=== PATIENT | male | born 1980 | race Caucasian/White ===

== ENCOUNTER 2017-02-04 23:43 | Inpatient (IN) | payer MEDICAID ==
[~2017-02-04] VITALS: Ht 175.3 cm; Wt 108.9 kg
[~2017-02-04 23:43] MED LIST: DEPAKOTE500 MG PO; KEPPRA500 M3 ORAL; KLONOPIN1 MG PO; NEURONTIN600 MG PO
[2017-02-04 23:46] VITALS: BP 115/72
[2017-02-04] MEDS ORDERED: levETIRAcetam 500mg vial IV ONE (23:51)
[2017-02-05] VITALS (9 sets, daily range): BP systolic 93–111; BP diastolic 43–68
[2017-02-05] MEDS ORDERED: levETIRAcetam 500 MG in D5W 110 ML IV ONE ×2
[2017-02-05 00:08] LABS: BASOPHILS % (AUTO) 1.5 % (0.0-2.0); EOSINOPHILS % (AUTO) 2.5 % (0.0-3.0); LYMPHOCYTES % (AUTO) 28.4 % (20.0-45.0); MEAN CORPUSCULAR HEMOGLOBIN 28.8 PG (27.0-31.0); MEAN CORPUSCULAR HGB CONC 32.7 G/DL (32.0-36.0); MEAN CORPUSCULAR VOLUME 88 FL (80-99); MEAN PLATELET VOLUME 6.1 FL (6.5-10.1); MONOCYTES % (AUTO) 6.1 % (1.0-10.0); NEUTROPHILS % (AUTO) 61.5 % (45.0-75.0); PLATELET COUNT 283 K/UL (150-450); RED BLOOD COUNT 4.71 M/UL (4.70-6.10); RED CELL DISTRIBUTION WIDTH 12.5 % (11.6-14.8); WHITE BLOOD COUNT 8.7 K/UL (4.8-10.8)
[2017-02-05 00:33] LABS: ALANINE AMINOTRANSFERASE 27 U/L (12-78); ALCOHOL < 3 mg/dL; ANION GAP 6 (5-15); ASPARTATE AMINO TRANSFERASE 14 U/L (15-37); CARBON DIOXIDE 30 MMOL/L (21-32); CHLORIDE 100 MMOL/L (98-107); CREATININE 1.2 MG/DL (0.55-1.30); GLOMERULAR FILTRATION RATE > 60 mL/min (>60); POTASSIUM 3.6 MMOL/L (3.5-5.1); SODIUM 136 MMOL/L (136-145); TOTAL PROTEIN 7.4 G/DL (6.4-8.2)
[2017-02-05 01:00] LABS: CALCIUM 8.6 MG/DL (8.5-10.1)
[2017-02-05 01:03] LABS: VALPROIC ACID 148 MCG/ML (50-100)
[2017-02-05 01:24] LABS: ACETAMINOPHEN < 0.0 MCG/ML (10-30)
--- NOTE | 2017-02-05 03:18 | Emergency Room Report ---
History of Present Illness General Chief Complaint: Seizure Source: EMS Present Illness HPI 36-year-old male presents to ED status post seizure. Seizure was witnessed by mother on the street. Last for several seconds. Patient reportedly hit his head. Patient has history of seizures. Takes Keppra and Depakote. Mother states that patient does have a psychiatric history. Unsure patient tried to overdose of this medication. Upon arrival patient is lethargic, postictal. Unable to have any additional questions. No signs of distress. No tobacco relieving factors. Denies any other associated symptoms Allergies: Coded Allergies: SULFA (SULFONAMIDE ANTIBIOTICS) (Verified Allergy, Unknown, 03/02/12) Uncoded Allergies: SULFA (Allergy, Mild, 03/02/14) Patient History Past Medical History: seizures, psych hx Past Surgical History: none Pertinent Family History: none Social History: Denies: smoking, alcohol use, drug use Immunizations: UTD Reviewed Nursing Documentation: PMH: Agreed, PSxH: Agreed Nursing Documentation-PMH Hx Cardiac Problems: No Hx Cancer: No Hx Gastrointestinal Problems: No History Of Psychiatric Problem: Yes Hx Neurological Problems: Yes Hx Seizures: Yes Hx Epilepsy: Yes Review of Systems All Other Systems: limited Physical Exam Vital Signs Date Time Temp Pulse Resp B/P (MAP) Pulse Ox O2 Delivery O2 Flow Rate FiO2 02/04/17 23:39 98.1 61 14 115/72 100 Room Air 02/04/17 23:46 Sp02 EP Interpretation: reviewed, normal General Appearance: lethargic Head: normocephalic, atraumatic Eyes: bilateral eye normal inspection, bilateral eye PERRL ENT: hearing grossly normal, normal pharynx, no angioedema, normal voice Neck: full range of motion, supple/symm/no masses Respiratory: chest non-tender, lungs clear, normal breath sounds, speaking full sentences Cardiovascular #1: regular rate, rhythm, no edema Cardiovascular #2: 2+ carotid (R), 2+ carotid (L), 2+ radial (R), 2+ radial (L) , 2+ dorsalis pedis (R), 2+ dorsalis pedis (L) Gastrointestinal: normal bowel sounds, non tender, soft, non-distended, no guarding, no rebound Rectal: deferred Genitourinary: normal inspection, no CVA tenderness Musculoskeletal: back normal, gait/station normal, normal range of motion, non- tender Neurologic: other - lethargic Psychiatric: other - lethargic Reflexes: 3+ bicep (R), 3+ bicep (L), 3+ tricep (R), 3+ tricep (L), 3+ knee (R) , 3+ knee (L) Skin: normal color, no rash, warm/dry, well hydrated Lymphatic: no adenopathy Medical Decision Making Diagnostic Impression: Primary Impression: Valproic acid toxicity Qualified Codes: T42.6X4A - Poisoning by other antiepileptic and sedative- hypnotic drugs, undetermined, initial encounter Additional Impressions: Altered level of consciousness Seizure disorder ER Course Hospital Course 36-year-old M presents to ED status post seizure. altered Differential diagnosis includes- breakthrough seizure, alcohol abuse, noncompliance with medication Clinical course Patient placed on stretcher. Initial history and physical I ordered labs, IV fluids, CT brain. IV Keppra Labs-electrolytes okay, leukocytosis noted, hemoglobin/hematocrit stable. depakote level 149 (elevated) EKG - NSR, no acute ischemic changes, no terminal R wave CT Brain ok Discussed findings with poison control. Recommend repeating Depakote level after a few hours, check ammonia level and lactic acid level Repeat Depakote level 140, ammonia 49, lactic acid ok Patient remains lethargic. Mother at bedside stating that patient does have a psychiatric history and may have taken more Depakote that he is supposed to. She is unsure whether he was trying to hurt himself i. I feel this is a highly complex case requiring extensive working including EKG/Rhythm strip, Xray/CT/US, Blood/urine lab work, repeat exams while in ED, and administration of strong opiates/narcotics for pain control, admission to hospital or close patient follow up. Diagnosis - valproic acid toxicity, altered level of consciousness, seizure disorder admitted to telemetry in serious condition Labs Test 02/04/17 23:45 02/05/17 03:05 White Blood Count 8.7 K/UL (4.8-10.8) Red Blood Count 4.71 M/UL (4.70-6.10) Hemoglobin 13.6 G/DL (14.2-18.0) Hematocrit 41.5 % (42.0-52.0) Mean Corpuscular Volume 88 FL (80-99) Mean Corpuscular Hemoglobin 28.8 PG (27.0-31.0) Mean Corpuscular Hemoglobin Concent 32.7 G/DL (32.0-36.0) Red Cell Distribution Width 12.5 % (11.6-14.8) Platelet Count 283 K/UL (150-450) Mean Platelet Volume 6.1 FL (6.5-10.1) Neutrophils (%) (Auto) 61.5 % (45.0-75.0) Lymphocytes (%) (Auto) 28.4 % (20.0-45.0) Monocytes (%) (Auto) 6.1 % (1.0-10.0) Eosinophils (%) (Auto) 2.5 % (0.0-3.0) Basophils (%) (Auto) 1.5 % (0.0-2.0) Sodium Level 136 MMOL/L (136-145) Potassium Level 3.6 MMOL/L (3.5-5.1) Chloride Level 100 MMOL/L (98-107) Carbon Dioxide Level 30 MMOL/L (21-32) Anion Gap 6 (5-15) Blood Urea Nitrogen 9 mg/dL (7-18) Creatinine 1.2 MG/DL (0.55-1.30) Estimat Glomerular Filtration Rate > 60 mL/min (>60) Glucose Level 87 MG/DL (74-106) Calcium Level 8.6 MG/DL (8.5-10.1) Total Bilirubin 0.5 MG/DL (0.2-1.0) Aspartate Amino Transf (AST/SGOT) 14 U/L (15-37) Alanine Aminotransferase (ALT/SGPT) 27 U/L (12-78) Alkaline Phosphatase 54 U/L (46-116) Ammonia 49 umol/L (11.2-31.7) Total Protein 7.4 G/DL (6.4-8.2) Albumin 3.7 G/DL (3.4-5.0) Globulin 3.7 g/dL Albumin/Globulin Ratio 1.0 (1.0-2.7) Salicylates Level 0 ug/mL (2.8-20) Acetaminophen Level < 0.0 MCG/ML (10-30) Valproic Acid (Depakene) Level 148 MCG/ML (50-100) 140 MCG/ML (50-100) Serum Alcohol < 3 mg/dL Lactic Acid Level 1.60 mmol/L (0.66-2.22) EKG Diagnostic Results Rate: normal Rhythm: NSR ST Segments: no acute changes ASA given to the pt in ED: No Rhythm Strip Diag. Results EP Interpretation: yes Rhythm: NSR, no PVC's, no ectopy CT/MRI/US Diagnostic Results CT/MRI/US Diagnostic Results : Imaging Test Ordered: CT Head Impression no acute process Last Vital Signs Date Time Temp Pulse Resp B/P (MAP) Pulse Ox O2 Delivery O2 Flow Rate FiO2 02/05/17 00:46 98.1 64 15 105/64 100 Room Air 02/04/17 23:46 100 Status: unchanged Disposition: XFER [facility] Condition: Serious Referrals: CHIQUI DOLL (PCP) FLYNN PEREZ M.D. Feb 05, 2017 03:18
[2017-02-05] MEDS ORDERED: KLONOPIN2 MG PO (05:49)
[2017-02-05] MEDS ORDERED: DEPAKOTE125 MG PO (05:49)
[2017-02-05] MEDS ORDERED: NEURONTIN300 MG ORAL (05:49)
[2017-02-05] MEDS ORDERED: Mylanta II UD 30ml ORAL PRN (07:00)
[2017-02-05] MEDS ORDERED: LORazepam Inj 2mg/ml 1ml IV PRN (07:00)
[2017-02-05] MEDS ORDERED: Morphine Sulfate 2mg/ml Inj IVP PRN (07:00)
[2017-02-05] MEDS: Heparin 5000 units/ml inj SUBQ SCH ×2 (08:27→20:37)
--- NOTE | 2017-02-05 08:52 | Diagnostic Imaging Report ---
Indication: Altered mental status Technique: Continuous helical CT scanning of the head was performed without intravenous contrast material. Axial and coronal 5 mm sections were generated. Radiation dose was minimized using automated exposure control Dose: Total Dose Length Product - DLP [address] Dose Index - CTDIvol(s) 70.38 mGy. Comparison: None Findings: The ventricular system is normal in size and configuration. There is no shift of midline structures. No abnormal extra-axial fluid collections are noted. There is no evidence of intracerebral bleeding. No other abnormal high or low density areas are noted within the brain. Intact calvarium. Visualized orbits and sinuses are unremarkable Impression: Normal CT scan of the head without contrast material. This agrees with the preliminary interpretation provided overnight by [facility] teleradiology service. The CT scanner at [facility] is accredited by the [employer] and the scans are performed using protocols designed to limit radiation exposure to as low as reasonably achievable to attain images of sufficient resolution adequate for diagnostic evaluation.
--- NOTE | 2017-02-05 12:22 | Neurology Progress Note ---
Objective Physical Exam Last Vital Signs Date Time Temp Pulse Resp B/P (MAP) Pulse Ox O2 Delivery O2 Flow Rate FiO2 02/05/17 11:36 97.5 71 18 98/51 94 Room Air 02/05/17 06:21 100 Laboratory Tests Test 02/04/17 23:45 02/05/17 03:05 02/05/17 05:35 02/05/17 10:45 White Blood Count 8.7 K/UL (4.8-10.8) Red Blood Count 4.71 M/UL (4.70-6.10) Hemoglobin 13.6 G/DL (14.2-18.0) L Hematocrit 41.5 % (42.0-52.0) L Mean Corpuscular Volume 88 FL (80-99) Mean Corpuscular Hemoglobin 28.8 PG (27.0-31.0) Mean Corpuscular Hemoglobin Concent 32.7 G/DL (32.0-36.0) Red Cell Distribution Width 12.5 % (11.6-14.8) Platelet Count 283 K/UL (150-450) Mean Platelet Volume 6.1 FL (6.5-10.1) L Neutrophils (%) (Auto) 61.5 % (45.0-75.0) Lymphocytes (%) (Auto) 28.4 % (20.0-45.0) Monocytes (%) (Auto) 6.1 % (1.0-10.0) Eosinophils (%) (Auto) 2.5 % (0.0-3.0) Basophils (%) (Auto) 1.5 % (0.0-2.0) Sodium Level 136 MMOL/L (136-145) Potassium Level 3.6 MMOL/L (3.5-5.1) Chloride Level 100 MMOL/L (98-107) Carbon Dioxide Level 30 MMOL/L (21-32) Anion Gap 6 (5-15) Blood Urea Nitrogen 9 mg/dL (7-18) Creatinine 1.2 MG/DL (0.55-1.30) Estimat Glomerular Filtration Rate > 60 mL/min (>60) Glucose Level 87 MG/DL (74-106) Calcium Level 8.6 MG/DL (8.5-10.1) Total Bilirubin 0.5 MG/DL (0.2-1.0) Aspartate Amino Transf (AST/SGOT) 14 U/L (15-37) L Alanine Aminotransferase (ALT/SGPT) 27 U/L (12-78) Alkaline Phosphatase 54 U/L (46-116) Ammonia 49 umol/L (11.2-31.7) H Pending Total Protein 7.4 G/DL (6.4-8.2) Albumin 3.7 G/DL (3.4-5.0) Globulin 3.7 g/dL Albumin/Globulin Ratio 1.0 (1.0-2.7) Salicylates Level 0 ug/mL (2.8-20) L Pending Acetaminophen Level < 0.0 MCG/ML (10-30) L Pending Valproic Acid (Depakene) Level 148 MCG/ML (50-100) *H 140 MCG/ML (50-100) *H Pending Serum Alcohol < 3 mg/dL Pending Lactic Acid Level 1.60 mmol/L (0.66-2.22) Urine Opiates Screen Negative (NEGATIVE) Urine Barbiturates Screen Negative (NEGATIVE) Phencyclidine (PCP) Screen Negative (NEGATIVE) Urine Amphetamines Screen Negative (NEGATIVE) Urine Benzodiazepines Screen Negative (NEGATIVE) Urine Cocaine Screen Negative (NEGATIVE) Urine Marijuana (THC) Screen Negative (NEGATIVE) Impression/Recommendations Problems: (1) persistant unresponsiveness 2/2 toxic encephalopathy. (2) chronic seizure disorder, noncompiant (3) blunt head trauma (4) Valproic acid toxicity Status: unchanged Recommendations # [id number] CARINE JERONIMO Feb 05, 2017 12:22
--- NOTE | 2017-02-05 12:41 | Consultation ---
History of Present Illness General Chief Complaint: Seizure Present Illness HPI not 5150 at this time Allergies: Coded Allergies: SULFA (SULFONAMIDE ANTIBIOTICS) (Verified Allergy, Unknown, 03/02/12) Uncoded Allergies: SULFA (Allergy, Mild, 03/02/14) Medication History Scheduled Divalproex Sodium (Depakote), 500 MG PO BID, (Reported) Gabapentin (Neurontin), 300 MG ORAL BEDTIME, (Reported) Levetiracetam (Levetiracetam), 500 MG ORAL Q12HR Miscellaneous Medications Clonazepam (Klonopin), 2 MG PO, (Reported) Divalproex Sodium (Depakote), 125 MG PO, (Reported) Patient History Healthcare decision maker Resuscitation status Advanced Directive on File Physical Exam Last 24 Hour Vital Signs Date Time Temp Pulse Resp B/P (MAP) Pulse Ox O2 Delivery O2 Flow Rate FiO2 02/05/17 11:36 97.5 71 18 98/51 94 Room Air 02/05/17 08:27 96.8 69 20 103/43 97 Room Air 02/05/17 06:21 98.3 70 17 111/68 100 Room Air 100 02/05/17 06:03 98.3 70 17 111/68 100 Room Air 02/05/17 05:00 98.3 61 12 93/62 100 Room Air 02/05/17 03:00 98.3 66 13 100/62 100 Room Air 02/05/17 02:00 98.3 65 14 106/64 100 Room Air 02/05/17 00:46 98.1 64 15 105/64 100 Room Air 02/04/17 23:46 61 14 Room Air 100 02/04/17 23:46 61 14 Room Air 100 02/04/17 23:46 98.1 61 14 115/72 100 Room Air 02/04/17 23:39 98.1 61 14 115/72 100 Room Air Laboratory Tests Test 02/04/17 23:45 02/05/17 03:05 02/05/17 05:35 02/05/17 10:45 White Blood Count 8.7 K/UL (4.8-10.8) Red Blood Count 4.71 M/UL (4.70-6.10) Hemoglobin 13.6 G/DL (14.2-18.0) L Hematocrit 41.5 % (42.0-52.0) L Mean Corpuscular Volume 88 FL (80-99) Mean Corpuscular Hemoglobin 28.8 PG (27.0-31.0) Mean Corpuscular Hemoglobin Concent 32.7 G/DL (32.0-36.0) Red Cell Distribution Width 12.5 % (11.6-14.8) Platelet Count 283 K/UL (150-450) Mean Platelet Volume 6.1 FL (6.5-10.1) L Neutrophils (%) (Auto) 61.5 % (45.0-75.0) Lymphocytes (%) (Auto) 28.4 % (20.0-45.0) Monocytes (%) (Auto) 6.1 % (1.0-10.0) Eosinophils (%) (Auto) 2.5 % (0.0-3.0) Basophils (%) (Auto) 1.5 % (0.0-2.0) Sodium Level 136 MMOL/L (136-145) Potassium Level 3.6 MMOL/L (3.5-5.1) Chloride Level 100 MMOL/L (98-107) Carbon Dioxide Level 30 MMOL/L (21-32) Anion Gap 6 (5-15) Blood Urea Nitrogen 9 mg/dL (7-18) Creatinine 1.2 MG/DL (0.55-1.30) Estimat Glomerular Filtration Rate > 60 mL/min (>60) Glucose Level 87 MG/DL (74-106) Calcium Level 8.6 MG/DL (8.5-10.1) Total Bilirubin 0.5 MG/DL (0.2-1.0) Aspartate Amino Transf (AST/SGOT) 14 U/L (15-37) L Alanine Aminotransferase (ALT/SGPT) 27 U/L (12-78) Alkaline Phosphatase 54 U/L (46-116) Ammonia 49 umol/L (11.2-31.7) H Pending Total Protein 7.4 G/DL (6.4-8.2) Albumin 3.7 G/DL (3.4-5.0) Globulin 3.7 g/dL Albumin/Globulin Ratio 1.0 (1.0-2.7) Salicylates Level 0 ug/mL (2.8-20) L Pending Acetaminophen Level < 0.0 MCG/ML (10-30) L Pending Valproic Acid (Depakene) Level 148 MCG/ML (50-100) *H 140 MCG/ML (50-100) *H Pending Serum Alcohol < 3 mg/dL Pending Lactic Acid Level 1.60 mmol/L (0.66-2.22) Urine Opiates Screen Negative (NEGATIVE) Urine Barbiturates Screen Negative (NEGATIVE) Phencyclidine (PCP) Screen Negative (NEGATIVE) Urine Amphetamines Screen Negative (NEGATIVE) Urine Benzodiazepines Screen Negative (NEGATIVE) Urine Cocaine Screen Negative (NEGATIVE) Urine Marijuana (THC) Screen Negative (NEGATIVE) Height (Feet): 5 Height (Inches): 9.00 Weight (Pounds): 240 Medications Current Medications Medications (Trade) Dose Ordered Sig/Janet Route PRN Reason Start Time Stop Time Status Last Admin Dose Admin Acetaminophen (Tylenol) 650 mg Q4H PRN ORAL T>100.5 02/05/17 07:00 03/07/17 06:59 Al Hydroxide/Mg Hydroxide (Mylanta II) 30 ml Q6H PRN ORAL dyspepsia 02/05/17 07:00 03/07/17 06:59 Dextrose (Dextrose 50%) STAT PRN IV Hypoglycemia 02/05/17 07:00 03/07/17 06:59 Heparin Sodium (Porcine) (Heparin 5000 units/ml) 5,000 units EVERY 12 HOURS SUBQ 02/05/17 09:00 03/07/17 08:59 02/05/17 08:27 Levetiracetam 100 ml @ 400 mls/hr Q12HR IVPB 02/05/17 13:00 03/07/17 12:59 Lorazepam (Ativan 2mg/ml 1ml) 2 mg Q1H PRN IV seizures 02/05/17 07:00 02/12/17 06:59 Morphine Sulfate (Morphine Sulfate) 1 mg Q4H PRN IVP PAIN 4-10 02/05/17 07:00 02/12/17 06:59 Ondansetron HCl (Zofran) 4 mg Q6H PRN IVP Nausea & Vomiting 02/05/17 07:00 03/07/17 06:59 Polyethylene Glycol (Miralax) 17 gm HSPRN PRN ORAL Constipation 02/05/17 21:00 11/10/17 20:59 Zolpidem Tartrate (Ambien) 5 mg HSPRN PRN ORAL Insomnia 02/05/17 21:00 02/12/17 20:59 Courtney Ashraf M.D. Feb 05, 2017 12:41
--- NOTE | 2017-02-05 12:53 | History and Physical ---
History of Present Illness General Date patient seen: Feb 05, 2017 Reason for Hospitalization: Seizure Present Illness HPI 36-year-old male presents to ED status post seizure. Seizure was witnessed by mother on the street. Last for several seconds. Patient reportedly hit his head. Patient has history of seizures. Takes Keppra and Depakote. Upon arrival patient is lethargic, postictal. Unable to have any additional questions. Patient remains unconscious. responds only to painful stimuli. Allergies: Coded Allergies: SULFA (SULFONAMIDE ANTIBIOTICS) (Verified Allergy, Unknown, 03/02/12) Uncoded Allergies: SULFA (Allergy, Mild, 03/02/14) Medication History Scheduled Divalproex Sodium (Depakote), 500 MG PO BID, (Reported) Gabapentin (Neurontin), 300 MG ORAL BEDTIME, (Reported) Levetiracetam (Levetiracetam), 500 MG ORAL Q12HR Miscellaneous Medications Clonazepam (Klonopin), 2 MG PO, (Reported) Divalproex Sodium (Depakote), 125 MG PO, (Reported) Patient History Healthcare decision maker Resuscitation status Advanced Directive on File Past Medical/Surgical History Past Medical/Surgical History: (1) Acute encephalopathy (2) chronic seizure disorder, noncompiant (3) Valproic acid toxicity Review of Systems All Other Systems: negative except mentioned in HPI Physical Exam General Appearance: WD/WN Lines, tubes and drains: peripheral HEENT: normocephalic, atraumatic Neck: non-tender, normal alignment Respiratory/Chest: chest wall non-tender, lungs clear Cardiovascular/Chest: normal rate Abdomen: normal bowel sounds, non tender Genitourinary/Rectal: normal genital exam Extremities: normal range of motion Skin Exam: normal pigmentation Last 24 Hour Vital Signs Date Time Temp Pulse Resp B/P (MAP) Pulse Ox O2 Delivery O2 Flow Rate FiO2 02/05/17 11:36 97.5 71 18 98/51 94 Room Air 02/05/17 08:27 96.8 69 20 103/43 97 Room Air 02/05/17 06:21 98.3 70 17 111/68 100 Room Air 100 02/05/17 06:03 98.3 70 17 111/68 100 Room Air 02/05/17 05:00 98.3 61 12 93/62 100 Room Air 02/05/17 03:00 98.3 66 13 100/62 100 Room Air 02/05/17 02:00 98.3 65 14 106/64 100 Room Air 02/05/17 00:46 98.1 64 15 105/64 100 Room Air 02/04/17 23:46 61 14 Room Air 100 02/04/17 23:46 61 14 Room Air 100 02/04/17 23:46 98.1 61 14 115/72 100 Room Air 02/04/17 23:39 98.1 61 14 115/72 100 Room Air Laboratory Tests Test 02/04/17 23:45 02/05/17 03:05 02/05/17 05:35 02/05/17 10:45 White Blood Count 8.7 K/UL (4.8-10.8) Red Blood Count 4.71 M/UL (4.70-6.10) Hemoglobin 13.6 G/DL (14.2-18.0) L Hematocrit 41.5 % (42.0-52.0) L Mean Corpuscular Volume 88 FL (80-99) Mean Corpuscular Hemoglobin 28.8 PG (27.0-31.0) Mean Corpuscular Hemoglobin Concent 32.7 G/DL (32.0-36.0) Red Cell Distribution Width 12.5 % (11.6-14.8) Platelet Count 283 K/UL (150-450) Mean Platelet Volume 6.1 FL (6.5-10.1) L Neutrophils (%) (Auto) 61.5 % (45.0-75.0) Lymphocytes (%) (Auto) 28.4 % (20.0-45.0) Monocytes (%) (Auto) 6.1 % (1.0-10.0) Eosinophils (%) (Auto) 2.5 % (0.0-3.0) Basophils (%) (Auto) 1.5 % (0.0-2.0) Sodium Level 136 MMOL/L (136-145) Potassium Level 3.6 MMOL/L (3.5-5.1) Chloride Level 100 MMOL/L (98-107) Carbon Dioxide Level 30 MMOL/L (21-32) Anion Gap 6 (5-15) Blood Urea Nitrogen 9 mg/dL (7-18) Creatinine 1.2 MG/DL (0.55-1.30) Estimat Glomerular Filtration Rate > 60 mL/min (>60) Glucose Level 87 MG/DL (74-106) Calcium Level 8.6 MG/DL (8.5-10.1) Total Bilirubin 0.5 MG/DL (0.2-1.0) Aspartate Amino Transf (AST/SGOT) 14 U/L (15-37) L Alanine Aminotransferase (ALT/SGPT) 27 U/L (12-78) Alkaline Phosphatase 54 U/L (46-116) Ammonia 49 umol/L (11.2-31.7) H Pending Total Protein 7.4 G/DL (6.4-8.2) Albumin 3.7 G/DL (3.4-5.0) Globulin 3.7 g/dL Albumin/Globulin Ratio 1.0 (1.0-2.7) Salicylates Level 0 ug/mL (2.8-20) L Pending Acetaminophen Level < 0.0 MCG/ML (10-30) L Pending Valproic Acid (Depakene) Level 148 MCG/ML (50-100) *H 140 MCG/ML (50-100) *H Pending Serum Alcohol < 3 mg/dL Pending Lactic Acid Level 1.60 mmol/L (0.66-2.22) Urine Opiates Screen Negative (NEGATIVE) Urine Barbiturates Screen Negative (NEGATIVE) Phencyclidine (PCP) Screen Negative (NEGATIVE) Urine Amphetamines Screen Negative (NEGATIVE) Urine Benzodiazepines Screen Negative (NEGATIVE) Urine Cocaine Screen Negative (NEGATIVE) Urine Marijuana (THC) Screen Negative (NEGATIVE) Height (Feet): 5 Height (Inches): 9.00 Weight (Pounds): 240 Medications Current Medications Medications (Trade) Dose Ordered Sig/Janet Route PRN Reason Start Time Stop Time Status Last Admin Dose Admin Acetaminophen (Tylenol) 650 mg Q4H PRN ORAL T>100.5 02/05/17 07:00 03/07/17 06:59 Al Hydroxide/Mg Hydroxide (Mylanta II) 30 ml Q6H PRN ORAL dyspepsia 02/05/17 07:00 03/07/17 06:59 Dextrose (Dextrose 50%) STAT PRN IV Hypoglycemia 02/05/17 07:00 03/07/17 06:59 Heparin Sodium (Porcine) (Heparin 5000 units/ml) 5,000 units EVERY 12 HOURS SUBQ 02/05/17 09:00 03/07/17 08:59 02/05/17 08:27 Levetiracetam 100 ml @ 400 mls/hr Q12HR IVPB 02/05/17 13:00 03/07/17 12:59 Lorazepam (Ativan 2mg/ml 1ml) 2 mg Q1H PRN IV seizures 02/05/17 07:00 02/12/17 06:59 Morphine Sulfate (Morphine Sulfate) 1 mg Q4H PRN IVP PAIN 4-10 02/05/17 07:00 02/12/17 06:59 Ondansetron HCl (Zofran) 4 mg Q6H PRN IVP Nausea & Vomiting 02/05/17 07:00 03/07/17 06:59 Polyethylene Glycol (Miralax) 17 gm HSPRN PRN ORAL Constipation 02/05/17 21:00 03/07/17 20:59 Zolpidem Tartrate (Ambien) 5 mg HSPRN PRN ORAL Insomnia 02/05/17 21:00 02/12/17 20:59 Assessment/Plan Problem List: (1) Acute encephalopathy ICD Codes: G93.40 - Encephalopathy, unspecified SNOMED: 1349523 (2) chronic seizure disorder, noncompiant (3) Valproic acid toxicity ICD Codes: T42.6X1A - Poisoning by oth antieplptc and sed-hypntc drugs, acc, init SNOMED: 178283617 Assessment/Plan telemetry monitoring neuro evaluation psych evaluation ALISHA SOW Feb 05, 2017 12:52
[2017-02-05 13:25] LABS: AMMONIA 101 umol/L (11.2-31.7)
[2017-02-05 13:30] LABS: ACETAMINOPHEN 0.4 MCG/ML (10-30)
[2017-02-05 13:36] LABS: VALPROIC ACID > 150 MCG/ML (50-100)
[2017-02-05 13:38] LABS: ALCOHOL < 3 mg/dL
[2017-02-05] MEDS: levETIRAcetam 500mg/NS100ml 100 ML IVPB SCH ×2 (15:00→20:36)
[2017-02-05 16:15] LABS: AMMONIA 31 umol/L (11.2-31.7)
[2017-02-05 16:25] LABS: ALCOHOL < 3 mg/dL
[2017-02-05 16:26] LABS: ACETAMINOPHEN < 10.0 MCG/ML (10-30)
[2017-02-05 16:30] LABS: VALPROIC ACID 163 MCG/ML (50-100)
--- NOTE | 2017-02-05 19:31 | Consultation ---
DATE OF CONSULTATION: HISTORY OF PRESENT ILLNESS: The patient is a 36-year-old male with a history of bipolar disorder, who has been admitted to the hospital after he alledgedly took five pills of Depakote. Upon evaluation, the patient denies any suicide attempt, however, the patient mother is unsure whether the patient had to overdose or he was trying to present having a seizure. During the evaluation, the patient denied any suicidal or homicidal ideation. The patient is well known to me from past. I have not been his doctor, however, has been familiar with him in a different context, they both have a history of noncompliance and eating fast food and not following doctor's recommendation. Recently, they both are homeless and they have been living in a motel. The patient is denying any depressive symptoms. He appears to be depressed, has flat affect and minimally verbal. PAST PSYCHIATRIC HISTORY: He denies any psychiatric hospitalization. No suicide attempt in the past. PAST MEDICAL HISTORY: Seizure disorder and obesity. ALLERGIES: Sulfa. SUBSTANCE ABUSE HISTORY: No history of illicit drug use or alcohol. SOCIAL HISTORY: The patient is homeless, is in a codependent relationship with his mother. MENTAL STATUS EXAMINATION: Alert and oriented x3. Mood is depressed. Affect is constricted. Thought process is concrete. Thought content, no suicidal or homicidal ideations. ASSESSMENT: AXIS I Bipolar disorder by history. AXIS II Deferred. AXIS III Seizure disorder. AXIS IV Low. AXIS V Global assessment of functioning is 20. PLAN: The patient will be started Depakote ER 500 mg at bedtime. It is unclear whether the patient was taking it seizure or bipolar or both. We will continue to follow and readjust the medications. Courtney Ashraf M.D. DR: ROSE MARY JOB#: [id number] CC:
[2017-02-05 19:52] LABS: ALCOHOL < 3 mg/dL
[2017-02-05 20:01] LABS: VALPROIC ACID 145 MCG/ML (50-100)
[2017-02-05 20:36] LABS: ACETAMINOPHEN < 10.0 MCG/ML (10-30)
[2017-02-05] MEDS ORDERED: Miralax 17gm pkt ORAL PRN (21:00)
[2017-02-05] MEDS ORDERED: Zolpidem 5mg tab ORAL PRN (21:00)
[2017-02-05 21:33] LABS: AMMONIA 95 umol/L (11.2-31.7)
[2017-02-05 23:57] LABS: AMMONIA 46 umol/L (11.2-31.7)
--- NOTE | 2017-02-06 00:02 | Consultation ---
DATE OF CONSULTATION: 02/05/2017 NEUROLOGICAL CONSULTATION CONSULTING PHYSICIAN: Checo Taylor M.D. REQUESTING PHYSICIAN: Chelita Thomas M.D. HISTORY OF PRESENT ILLNESS: This is a 36-year-old man seen in neurological consultation to evaluate the exacerbation of seizure activities. The patient has a chronic seizure disorder since early 20s, developed as noted previously after having a head trauma, now presented with the exacerbation of seizures last night and being somewhat groggy. He was outside the gas station when he developed a generalized seizure. Paramedics were called to the scene. His vital signs were stable. He was found to be on the ground, status post at least 30 seconds of "tonic-clonic movement." His mother stated that the patient was in aura, went to the ground anticipating the seizure. There was no obvious signs of trauma noted. The patient remained postictal. There was no evidence of tongue biting. No urine incontinence. With this, the patient was brought to the emergency room. Mother described his fall as falling backwards hitting his head against the pole. The patient remained unresponsive and information was obtained from his mother. Laboratory work obtained revealing normal CBC study, unremarkable electrolyte panel, except ammonia 49. Normal lactic acid. Toxicology panel with valproic acid level of 148, repeat study 140. Alcohol level less than 3. He had a stat CT of the brain obtained. This revealed no intracranial abnormalities. Since admission last night until present, the patient remained unresponsive. PAST MEDICAL HISTORY: The patient has a history of mild cognitive impairment since young age and history of chronic seizure disorder, presumably posttraumatic since early 20s. The type of seizures described as being grand mal or "smaller seizures." Frequency, four or five per year. MEDICATIONS: His treatment for several years included Depakote 500 mg b.i.d. Last year, he was started on Keppra, which in the patient's mother opinion cause him psychiatric issues such as being explosive, anxious, and nervous with the mood swings. The patient's current treatment includes Keppra 500 mg b.i.d., Depakote 500 mg b.i.d., Klonopin 2 mg daily, and Neurontin 300 mg at bedtime. ALLERGIES: Sulfa drugs. SOCIAL HISTORY: Unfavorable. He completed high school, but unable to go through the college due to issue with memory. He had one and off manual jobs. He remained now on SSI. The patient and his mother have no permanent place to live, so they reside in temporary hotels. No alcohol or drug abuse noted. FAMILY HISTORY: Noncontributory. REVIEW OF SYSTEMS: Unable to obtain. PHYSICAL EXAMINATION: GENERAL: A well-developed moderately obese man, found to be asleep. VITAL SIGNS: Stable although at times, hypotensive down to 98/51. Temperature 97.5 degrees. Pulse oximetry 94%. HEENT: Head, normocephalic. There are some slight bruises in his left forehead region. NECK: Supple. No meningeal signs. MUSCULOSKELETAL EXAMINATION: Unremarkable except postoperative scarring in the right knee following knee replacement and old trauma to olson with noted scratches in this area. Peripheral pulses 1+ and symmetric. MENTAL STATUS: The patient was not arousable on verbal stimulation and shaking. CRANIAL NERVE II: Pupils both responding to light and accommodation. Extraocular movement full range. CRANIAL NERVE V: Normal corneal responses. CRANIAL NERVE VII: No gross asymmetry. CRANIAL NERVE VIII: Unable to test. CRANIAL NERVES IX THROUGH XII: Positive gag response. MOTOR EXAMINATION: Flaccid both upper and lower extremities. No spontaneous movement noted. Deep tendon reflexes 1+ bilaterally and symmetric. Plantar response is mute. SENSORY EXAMINATION: No response to pin stimulation. IMPRESSION: 1. Toxic encephalopathy, drug-induced. 2. Depakote toxicity. 3. Chronic seizure disorder. DISCUSSION: The patient had a generalized seizure last night with a mild head trauma and normal CAT scan of the brain. His current unresponsiveness may relate to Depakote toxicity. The patient's mother stated that "he wants to be smarter than a doctor, so he takes medicine as he wish." We will continue with IV fluids. We will hold all sedating medications, but maintain on Keppra 500 mg b.i.d. Check electroencephalogram. We will follow with you. Thank you for allowing me to see this interesting patient in neurological consultation. Checo Taylor M.D. DR: RONNELL JOB#: [id number] CC:
[2017-02-06 00:07] LABS: VALPROIC ACID 133 MCG/ML (50-100)
[2017-02-06 00:11] LABS: ACETAMINOPHEN < 0.0 MCG/ML (10-30); ALCOHOL < 3 mg/dL
[2017-02-06 00:26] VITALS: BP 110/51
[2017-02-06 03:38] LABS: BASOPHILS % (AUTO) 1.1 % (0.0-2.0); EOSINOPHILS % (AUTO) 1.2 % (0.0-3.0); LYMPHOCYTES % (AUTO) 34.4 % (20.0-45.0); MEAN CORPUSCULAR HEMOGLOBIN 28.7 PG (27.0-31.0); MEAN CORPUSCULAR HGB CONC 32.9 G/DL (32.0-36.0); MEAN CORPUSCULAR VOLUME 87 FL (80-99); MEAN PLATELET VOLUME 6.9 FL (6.5-10.1); MONOCYTES % (AUTO) 3.1 % (1.0-10.0); NEUTROPHILS % (AUTO) 60.2 % (45.0-75.0); PLATELET COUNT 305 K/UL (150-450); RED BLOOD COUNT 4.68 M/UL (4.70-6.10); RED CELL DISTRIBUTION WIDTH 12.4 % (11.6-14.8); WHITE BLOOD COUNT 8.5 K/UL (4.8-10.8)
[2017-02-06 03:45] LABS: AMMONIA 32 umol/L (11.2-31.7)
[2017-02-06 03:47] LABS: ALANINE AMINOTRANSFERASE 20 U/L (12-78); ALBUMIN/GLOBULIN RATIO 0.9 (1.0-2.7); ANION GAP 5 (5-15); ASPARTATE AMINO TRANSFERASE 14 U/L (15-37); CALCIUM 8.9 MG/DL (8.5-10.1); CARBON DIOXIDE 29 MMOL/L (21-32); CHLORIDE 103 MMOL/L (98-107); CREATININE 1.1 MG/DL (0.55-1.30); GLOMERULAR FILTRATION RATE > 60 mL/min (>60); POTASSIUM 3.6 MMOL/L (3.5-5.1); SODIUM 137 MMOL/L (136-145); TOTAL PROTEIN 6.7 G/DL (6.4-8.2)
[2017-02-06 03:48] LABS: ALCOHOL < 3 mg/dL
[2017-02-06 04:11] LABS: ACETAMINOPHEN < 0.0 MCG/ML (10-30); VALPROIC ACID 134 MCG/ML (50-100)
[2017-02-06 04:15] VITALS: BP 124/73
[2017-02-06 08:00] VITALS: BP 101/50
[2017-02-06 08:45] LABS: AMMONIA 83 umol/L (11.2-31.7)
[2017-02-06 09:26] LABS: ACETAMINOPHEN < 10.0 MCG/ML (10-30); ALCOHOL < 3 mg/dL
[2017-02-06 09:28] LABS: VALPROIC ACID 126 MCG/ML (50-100)
[2017-02-06] MEDS: levETIRAcetam 500mg/NS100ml 100 ML IVPB SCH (09:43)
[2017-02-06] MEDS: Heparin 5000 units/ml inj SUBQ SCH ×2 (09:46→20:34)
[2017-02-06 11:10] LABS: AMMONIA 30 umol/L (11.2-31.7)
[2017-02-06 11:16] LABS: VALPROIC ACID 103 MCG/ML (50-100)
[2017-02-06 11:18] LABS: ACETAMINOPHEN < 10 MCG/ML (10-30); ALCOHOL < 3 mg/dL
[2017-02-06 12:00] VITALS: BP 100/55
--- NOTE | 2017-02-06 12:03 | Neurology Progress Note ---
Interim History Interim History ROS Limited/Unobtainable: Yes Complaints: sleepy Events: became awake walkin to bath Interim History mother informs , pt is depressed takes high doseses since on Keppra , became very aggressive.l Objective Physical Exam Last Vital Signs Date Time Temp Pulse Resp B/P (MAP) Pulse Ox O2 Delivery O2 Flow Rate FiO2 02/06/17 08:00 97.9 64 20 101/50 93 Room Air 02/05/17 06:21 100 Laboratory Tests Test 02/05/17 15:34 02/05/17 19:07 02/05/17 23:00 02/06/17 03:05 Ammonia 31 umol/L (11.2-31.7) 95 umol/L (11.2-31.7) H 46 umol/L (11.2-31.7) H 32 umol/L (11.2-31.7) H Salicylates Level < 3 ug/mL (2.8-20) 0 ug/mL (2.8-20) L 1 ug/mL (2.8-20) L < 0 ug/mL (2.8-20) L Acetaminophen Level < 10.0 MCG/ML (10-30) L < 10.0 MCG/ML (10-30) L < 0.0 MCG/ML (10-30) L < 0.0 MCG/ML (10-30) L Valproic Acid (Depakene) Level 163 MCG/ML (50-100) *H 145 MCG/ML (50-100) *H 133 MCG/ML (50-100) *H 134 MCG/ML (50-100) *H Serum Alcohol < 3 mg/dL < 3 mg/dL < 3 mg/dL < 3 mg/dL White Blood Count 8.5 K/UL (4.8-10.8) Red Blood Count 4.68 M/UL (4.70-6.10) L Hemoglobin 13.4 G/DL (14.2-18.0) L Hematocrit 40.8 % (42.0-52.0) L Mean Corpuscular Volume 87 FL (80-99) Mean Corpuscular Hemoglobin 28.7 PG (27.0-31.0) Mean Corpuscular Hemoglobin Concent 32.9 G/DL (32.0-36.0) Red Cell Distribution Width 12.4 % (11.6-14.8) Platelet Count 305 K/UL (150-450) Mean Platelet Volume 6.9 FL (6.5-10.1) Neutrophils (%) (Auto) 60.2 % (45.0-75.0) Lymphocytes (%) (Auto) 34.4 % (20.0-45.0) Monocytes (%) (Auto) 3.1 % (1.0-10.0) Eosinophils (%) (Auto) 1.2 % (0.0-3.0) Basophils (%) (Auto) 1.1 % (0.0-2.0) Sodium Level 137 MMOL/L (136-145) Potassium Level 3.6 MMOL/L (3.5-5.1) Chloride Level 103 MMOL/L (98-107) Carbon Dioxide Level 29 MMOL/L (21-32) Anion Gap 5 (5-15) Blood Urea Nitrogen 10 mg/dL (7-18) Creatinine 1.1 MG/DL (0.55-1.30) Estimat Glomerular Filtration Rate > 60 mL/min (>60) Glucose Level 97 MG/DL (74-106) Calcium Level 8.9 MG/DL (8.5-10.1) Total Bilirubin 0.4 MG/DL (0.2-1.0) Aspartate Amino Transf (AST/SGOT) 14 U/L (15-37) L Alanine Aminotransferase (ALT/SGPT) 20 U/L (12-78) Alkaline Phosphatase 54 U/L (46-116) Total Protein 6.7 G/DL (6.4-8.2) Albumin 3.2 G/DL (3.4-5.0) L Globulin 3.5 g/dL Albumin/Globulin Ratio 0.9 (1.0-2.7) L Test 02/06/17 07:00 02/06/17 10:50 Ammonia 83 umol/L (11.2-31.7) H 30 umol/L (11.2-31.7) Salicylates Level < 0 ug/mL (2.8-20) L 0.4 ug/mL (2.8-20) L Acetaminophen Level < 10.0 MCG/ML (10-30) L < 10 MCG/ML (10-30) L Valproic Acid (Depakene) Level 126 MCG/ML (50-100) *H 103 MCG/ML (50-100) H Serum Alcohol < 3 mg/dL < 3 mg/dL General: well developed, no acute distress, other - obese Head: normocophalic Neck: no rigidity Neurologic Exam Mental Status: other - drowsy arousable admit taking meds extradoses. not alaborating Speech: normal speech Language: normal language Cranial Nerve II: fundus normal Cranial Nerves III, IV, : PERRLA, EOMI, pupils Cranial Nerve V: normal facial sensations, temporales function normal, masseters function normal, pterygoids function normal Cranial Nerve VII: no facial asymmetry, normal facial expressions Cranial Nerve VIII: normal hearing, no nystagmus Cranial Nerve IX: normal palate elevation, gag response Cranial Nerve X: no voice hoarseness Cranial Nerve XI: SCM symmetric, trapezii function normal Cranial Nerve XII: tongue midline, no tongue atrophy/fasciculations Motor System: normal muscle tone, strength 5/5, no involuntary movement, no muscle wasting Sensory: normal pinprick, normal light touch, normal position sense, normal graphesthesia Coordination: other Deep Tendon Reflexes: 1+ bicep (L), 1+ bicep (R), 1+ tricep (L), 1+ tricep (R) , 1+ brachioradialis (L), 1+ brachioradialis (R), 1+ knee (L), 1+ knee (R), 1+ ankle (L), 1+ ankle (R) Reflexes: mute plantar (L), mute plantar (R) Impression/Recommendations Problems: (1) Valproic acid toxicity (2) chronic seizure disorder, noncompiant (3) blunt head trauma (4) Depression Status: stable Recommendations # [id number] d/c roselia restart depakote in am psych CARINE Damon Feb 06, 2017 12:03
[2017-02-06] MEDS ORDERED: Gabapentin 300 MG/6 ML Soln ORAL SCH (13:00)
--- NOTE | 2017-02-06 14:39 | Pulmonology Progress Note ---
Assessment/Plan Problems: (1) Acute encephalopathy (2) chronic seizure disorder, noncompiant (3) Valproic acid toxicity Assessment/Plan valproic acid level decreasing f/u neuro and psych recommendations Subjective ROS Limited/Unobtainable: No Constitutional: Reports: no symptoms HEENT: Repors: no symptoms Allergies: Coded Allergies: SULFA (SULFONAMIDE ANTIBIOTICS) (Verified Allergy, Unknown, 03/02/12) Uncoded Allergies: SULFA (Allergy, Mild, 03/02/14) Objective Last 24 Hour Vital Signs Date Time Temp Pulse Resp B/P (MAP) Pulse Ox O2 Delivery O2 Flow Rate FiO2 02/06/17 12:00 97.7 65 21 100/55 94 Room Air 02/06/17 08:00 97.9 64 20 101/50 93 Room Air 02/06/17 04:15 97.9 79 20 124/73 96 Room Air 02/06/17 04:00 72 02/06/17 00:26 97.9 61 20 110/51 94 Room Air 02/06/17 00:00 70 02/05/17 20:20 96.8 70 16 104/55 94 Room Air 02/05/17 20:00 71 02/05/17 16:00 93 02/05/17 15:56 97.5 88 18 101/65 100 Room Air General Appearance: WD/WN HEENT: normocephalic, atraumatic Respiratory/Chest: chest wall non-tender, lungs clear Cardiovascular: normal peripheral pulses, normal rate Abdomen: normal bowel sounds, soft, non tender, no organomegaly Skin: no rash Laboratory Tests 02/05/17 15:34: Ammonia 31, Salicylates Level < 3, Acetaminophen Level < 10.0L, Valproic Acid ( Depakene) Level 163*H, Serum Alcohol < 3 02/05/17 19:07: Ammonia 95H, Salicylates Level 0L, Acetaminophen Level < 10.0L, Valproic Acid ( Depakene) Level 145*H, Serum Alcohol < 3 02/05/17 23:00: Ammonia 46H, Salicylates Level 1L, Acetaminophen Level < 0.0L, Valproic Acid ( Depakene) Level 133*H, Serum Alcohol < 3 02/06/17 03:05: Ammonia 32H, Salicylates Level < 0L, Acetaminophen Level < 0.0L, Valproic Acid ( Depakene) Level 134*H, Serum Alcohol < 3, White Blood Count 8.5, Red Blood Count 4.68L, Hemoglobin 13.4L, Hematocrit 40.8L, Mean Corpuscular Volume 87, Mean Corpuscular Hemoglobin 28.7, Mean Corpuscular Hemoglobin Concent 32.9, Red Cell Distribution Width 12.4, Platelet Count 305, Mean Platelet Volume 6.9, Neutrophils (%) (Auto) 60.2, Lymphocytes (%) (Auto) 34.4, Monocytes (%) (Auto) 3.1, Eosinophils (%) (Auto) 1.2, Basophils (%) (Auto) 1.1, Sodium Level 137, Potassium Level 3.6, Chloride Level 103, Carbon Dioxide Level 29, Anion Gap 5, Blood Urea Nitrogen 10, Creatinine 1.1, Estimat Glomerular Filtration Rate > 60 , Glucose Level 97, Calcium Level 8.9, Total Bilirubin 0.4, Aspartate Amino Transf (AST/SGOT) 14L, Alanine Aminotransferase (ALT/SGPT) 20, Alkaline Phosphatase 54, Total Protein 6.7, Albumin 3.2L, Globulin 3.5, Albumin/Globulin Ratio 0.9L 02/06/17 07:00: Ammonia 83H, Salicylates Level < 0L, Acetaminophen Level < 10.0L, Valproic Acid (Depakene) Level 126*H, Serum Alcohol < 3 02/06/17 10:50: Ammonia 30, Salicylates Level 0.4L, Acetaminophen Level < 10L, Valproic Acid ( Depakene) Level 103H, Serum Alcohol < 3 Current Medications Medications (Trade) Dose Ordered Sig/Janet Route PRN Reason Start Time Stop Time Status Last Admin Dose Admin Acetaminophen (Tylenol) 650 mg Q4H PRN ORAL T>100.5 02/05/17 07:00 03/07/17 06:59 Al Hydroxide/Mg Hydroxide (Mylanta II) 30 ml Q6H PRN ORAL dyspepsia 02/05/17 07:00 03/07/17 06:59 Clonazepam (KlonoPIN) 0.5 mg BEDTIME ORAL 02/06/17 21:00 02/13/17 20:59 Dextrose (Dextrose 50%) STAT PRN IV Hypoglycemia 02/05/17 07:00 03/07/17 06:59 Divalproex Sodium (Depakote ER) 500 mg EVERY 12 HOURS ORAL 02/07/17 09:00 03/09/17 08:59 Gabapentin (Neurontin) 300 mg THREE TIMES A DAY ORAL 02/06/17 13:00 03/08/17 12:59 02/06/17 13:16 Heparin Sodium (Porcine) (Heparin 5000 units/ml) 5,000 units EVERY 12 HOURS SUBQ 02/05/17 09:00 03/07/17 08:59 02/06/17 09:46 Lorazepam (Ativan 2mg/ml 1ml) 2 mg Q1H PRN IV seizures 02/05/17 07:00 02/12/17 06:59 Morphine Sulfate (Morphine Sulfate) 1 mg Q4H PRN IVP PAIN 4-10 02/05/17 07:00 02/12/17 06:59 Ondansetron HCl (Zofran) 4 mg Q6H PRN IVP Nausea & Vomiting 02/05/17 07:00 03/07/17 06:59 02/06/17 05:09 Polyethylene Glycol (Miralax) 17 gm HSPRN PRN ORAL Constipation 02/05/17 21:00 03/07/17 20:59 Zolpidem Tartrate (Ambien) 5 mg HSPRN PRN ORAL Insomnia 02/05/17 21:00 02/12/17 20:59 ALISHA SOW Feb 06, 2017 14:39
[2017-02-06 16:00] VITALS: BP 111/53
[2017-02-06 16:18] LABS: ALCOHOL < 3 mg/dL; VALPROIC ACID 98 MCG/ML (50-100)
[2017-02-06] MEDS ORDERED: LORazepam Inj 2mg/ml 1ml IV PRN (16:30)
[2017-02-06] MEDS ORDERED: Morphine Sulfate 2mg/ml Inj IVP PRN (16:30)
[2017-02-06] MEDS ORDERED: Mylanta II UD 30ml ORAL PRN (16:30)
[2017-02-06 17:34] LABS: ACETAMINOPHEN < 10 MCG/ML (10-30)
[2017-02-06] MEDS: Gabapentin 300 MG/6 ML Soln ORAL SCH (18:10)
[2017-02-06 18:41] LABS: AMMONIA 135 umol/L (11.2-31.7)
[2017-02-06 19:54] VITALS: BP 103/77
[2017-02-06 20:19] LABS: AMMONIA 103 umol/L (11.2-31.7)
[2017-02-06 20:30] LABS: VALPROIC ACID 84 MCG/ML (50-100)
[2017-02-06 20:32] LABS: ACETAMINOPHEN < 10 MCG/ML (10-30); ALCOHOL < 10 mg/dL
[2017-02-06] MEDS: clonazePAM 0.5mg tab ORAL SCH (20:33)
[2017-02-06] MEDS ORDERED: clonazePAM 0.5mg tab ORAL SCH (21:00)
[2017-02-06] MEDS ORDERED: Depakote ER 500mg tab ORAL SCH (21:00)
[2017-02-06] MEDS ORDERED: Zolpidem 5mg tab ORAL PRN (21:00)
[2017-02-06] MEDS ORDERED: Miralax 17gm pkt ORAL PRN (21:00)
--- NOTE | 2017-02-06 23:34 | General Progress Note ---
Assessment/Plan Status: stable Assessment/Plan bipolar d/o -depakote er 1000mg qhs -klonopin qhs -dc when medically cleared Subjective Constitutional: Reports: malaise, weakness Neurologic/Psychiatric: Reports: anxiety, depressed, emotional problems Allergies: Coded Allergies: SULFA (SULFONAMIDE ANTIBIOTICS) (Verified Allergy, Unknown, 03/02/12) Uncoded Allergies: SULFA (Allergy, Mild, 03/02/14) Objective Last 24 Hour Vital Signs Date Time Temp Pulse Resp B/P (MAP) Pulse Ox O2 Delivery O2 Flow Rate FiO2 02/06/17 19:54 97.9 85 18 103/77 95 Room Air 02/06/17 16:00 97.3 70 20 111/53 96 Room Air 02/06/17 12:00 67 02/06/17 12:00 97.7 65 21 100/55 94 Room Air 02/06/17 08:00 97.9 64 20 101/50 93 Room Air 02/06/17 08:00 72 02/06/17 04:15 97.9 79 20 124/73 96 Room Air 02/06/17 04:00 72 02/06/17 00:26 97.9 61 20 110/51 94 Room Air 02/06/17 00:00 70 Intake and Output 02/06/17 02/07/17 19:00 07:00 Intake Total 200 ml Balance 200 ml Intake Oral 200 ml # Voids 3 Laboratory Tests 02/06/17 03:05: White Blood Count 8.5, Red Blood Count 4.68L, Hemoglobin 13.4L, Hematocrit 40.8L , Mean Corpuscular Volume 87, Mean Corpuscular Hemoglobin 28.7, Mean Corpuscular Hemoglobin Concent 32.9, Red Cell Distribution Width 12.4, Platelet Count 305, Mean Platelet Volume 6.9, Neutrophils (%) (Auto) 60.2, Lymphocytes (% ) (Auto) 34.4, Monocytes (%) (Auto) 3.1, Eosinophils (%) (Auto) 1.2, Basophils ( %) (Auto) 1.1, Sodium Level 137, Potassium Level 3.6, Chloride Level 103, Carbon Dioxide Level 29, Anion Gap 5, Blood Urea Nitrogen 10, Creatinine 1.1, Estimat Glomerular Filtration Rate > 60, Glucose Level 97, Calcium Level 8.9, Total Bilirubin 0.4, Aspartate Amino Transf (AST/SGOT) 14L, Alanine Aminotransferase (ALT/SGPT) 20, Alkaline Phosphatase 54, Ammonia 32H, Total Protein 6.7, Albumin 3.2L, Globulin 3.5, Albumin/Globulin Ratio 0.9L, Salicylates Level < 0L, Acetaminophen Level < 0.0L, Valproic Acid (Depakene) Level 134*H, Serum Alcohol < 3 02/06/17 07:00: Ammonia 83H, Salicylates Level < 0L, Acetaminophen Level < 10.0L, Valproic Acid (Depakene) Level 126*H, Serum Alcohol < 3 02/06/17 10:50: Ammonia 30, Salicylates Level 0.4L, Acetaminophen Level < 10L, Valproic Acid ( Depakene) Level 103H, Serum Alcohol < 3 02/06/17 15:04: Ammonia 135H, Salicylates Level 0.5L, Acetaminophen Level < 10L, Valproic Acid ( Depakene) Level 98, Serum Alcohol < 3 02/06/17 18:50: Ammonia 103H, Salicylates Level < 5.0, Acetaminophen Level < 10L, Valproic Acid (Depakene) Level 84, Serum Alcohol < 10 Height (Feet): 5 Height (Inches): 9.00 Weight (Pounds): 240 General Appearance: WD/WN, no apparent distress, alert, agitated, obese Neurologic: alert, oriented x 3, responsive, depressed affect Courtney Ashraf M.D. Feb 06, 2017 23:34
[2017-02-06 23:56] LABS: AMMONIA 90 umol/L (11.2-31.7)
[2017-02-06 23:59] LABS: VALPROIC ACID 80 MCG/ML (50-100)
[2017-02-07] VITALS (7 sets, daily range): BP systolic 105–129; BP diastolic 62–78
[2017-02-07] LABS: ACETAMINOPHEN < 10 MCG/ML (10-30); ALCOHOL < 10 mg/dL
[2017-02-07 06:00] LABS: AMMONIA 231 umol/L (11.2-31.7)
[2017-02-07 06:17] LABS: ACETAMINOPHEN 0 MCG/ML (10-30); ALCOHOL < 3 mg/dL; VALPROIC ACID 81 MCG/ML (50-100)
--- NOTE | 2017-02-07 07:56 | Pulmonology Progress Note ---
Assessment/Plan Assessment/Plan ASSESSMENT acute toxic metabolic encephalopathy chronic seizure disorder noncompliance Valproic acid toxicity depression acute hepatic encephalopathy bipolar disorder PLAN OF CARE MS floor CT head no acute findings neuro and psych follow labs as per CDC recommendations seizure precautions initially on Keppra while Depakote on hold, became aggressive 02/06, Valproic acid down to normal , Keppra dc and restarted Depakote EEG as per neuro ammonia level high start lactulose LFT stable per psych diagnosed with bipolar, meds optimized as per psych discussed with mother at the bedside , patient can not be dc on Friday due to cheondoism belief tentative dc Friday case discussed and evaluated by supervising physician Subjective Allergies: Coded Allergies: SULFA (SULFONAMIDE ANTIBIOTICS) (Verified Allergy, Unknown, 03/02/12) Uncoded Allergies: SULFA (Allergy, Mild, 03/02/14) Subjective sleeping mother at the bedside ammonia high Objective Last 24 Hour Vital Signs Date Time Temp Pulse Resp B/P (MAP) Pulse Ox O2 Delivery O2 Flow Rate FiO2 02/07/17 04:00 97.7 68 18 105/69 96 Room Air 02/07/17 00:00 97.8 76 20 109/73 94 Room Air 02/06/17 19:54 97.9 85 18 103/77 95 Room Air 02/06/17 16:00 97.3 70 20 111/53 96 Room Air 02/06/17 12:00 67 02/06/17 12:00 97.7 65 21 100/55 94 Room Air 02/06/17 08:00 97.9 64 20 101/50 93 Room Air 02/06/17 08:00 72 General Appearance: no acute distress, other - sleeping, arousable , foul body odor HEENT: normocephalic, atraumatic Cardiovascular: normal rate, regular rhythm, no JVD Abdomen: normal bowel sounds, soft, non tender - obese Neurologic/Psychiatric: responsive, other - sleeping, arousable Musculoskeletal: normal muscle bulk Laboratory Tests 02/06/17 10:50: Ammonia 30, Salicylates Level 0.4L, Acetaminophen Level < 10L, Valproic Acid ( Depakene) Level 103H, Serum Alcohol < 3 02/06/17 15:04: Ammonia 135H, Salicylates Level 0.5L, Acetaminophen Level < 10L, Valproic Acid ( Depakene) Level 98, Serum Alcohol < 3 02/06/17 18:50: Ammonia 103H, Salicylates Level < 5.0, Acetaminophen Level < 10L, Valproic Acid (Depakene) Level 84, Serum Alcohol < 10 02/06/17 23:10: Ammonia 90H, Salicylates Level 0.3L, Acetaminophen Level < 10L, Valproic Acid ( Depakene) Level 80, Serum Alcohol < 10 02/07/17 03:40: Ammonia 231H, Salicylates Level 0.4L, Acetaminophen Level 0L, Valproic Acid ( Depakene) Level 81, Serum Alcohol < 3 Current Medications Medications (Trade) Dose Ordered Sig/Janet Route PRN Reason Start Time Stop Time Status Last Admin Dose Admin Acetaminophen (Tylenol) 650 mg Q4H PRN ORAL T>100.5 02/06/17 16:30 03/07/17 16:29 Al Hydroxide/Mg Hydroxide (Mylanta II) 30 ml Q6H PRN ORAL dyspepsia 02/06/17 16:30 03/07/17 16:29 Clonazepam (KlonoPIN) 0.5 mg BEDTIME ORAL 02/06/17 21:00 02/13/17 20:59 02/06/17 20:33 Dextrose (Dextrose 50%) STAT PRN IV Hypoglycemia 02/06/17 16:30 03/08/17 16:29 Divalproex Sodium (Depakote ER) 1,000 mg BEDTIME ORAL 02/07/17 21:00 03/08/17 20:59 Gabapentin (Neurontin) 300 mg THREE TIMES A DAY ORAL 02/06/17 18:00 03/08/17 12:59 02/06/17 18:10 Heparin Sodium (Porcine) (Heparin 5000 units/ml) 5,000 units EVERY 12 HOURS SUBQ 02/06/17 21:00 03/07/17 08:59 02/06/17 20:34 Lorazepam (Ativan 2mg/ml 1ml) 2 mg Q1H PRN IV seizures 02/06/17 16:30 02/12/17 16:29 Morphine Sulfate (Morphine Sulfate) 1 mg Q4H PRN IVP PAIN 4-10 02/06/17 16:30 02/12/17 16:29 Ondansetron HCl (Zofran) 4 mg Q6H PRN IVP Nausea & Vomiting 02/06/17 16:30 03/07/17 16:29 Polyethylene Glycol (Miralax) 17 gm HSPRN PRN ORAL Constipation 02/06/17 21:00 03/07/17 20:59 Zolpidem Tartrate (Ambien) 5 mg HSPRN PRN ORAL Insomnia 02/06/17 21:00 02/12/17 20:59 Dez ([facility])Tianna NP Feb 07, 2017 07:56
[2017-02-07] MEDS ORDERED: Depakote ER 500mg tab ORAL SCH (09:00)
[2017-02-07] MEDS: Lactulose 20gm/30ml UDC ORAL SCH ×3 (09:45→18:57)
[2017-02-07] MEDS: Gabapentin 300 MG/6 ML Soln ORAL SCH ×3 (09:45→18:57)
[2017-02-07 09:46] LABS: AMMONIA 52 umol/L (11.2-31.7)
[2017-02-07] MEDS: Heparin 5000 units/ml inj SUBQ SCH ×2 (09:46→20:08)
[2017-02-07 09:50] LABS: VALPROIC ACID 74 MCG/ML (50-100)
[2017-02-07 09:51] LABS: ACETAMINOPHEN 0 MCG/ML (10-30)
[2017-02-07 09:52] LABS: ALCOHOL < 3 mg/dL
--- NOTE | 2017-02-07 11:38 | Neurology Progress Note ---
Interim History Interim History ROS Limited/Unobtainable: No Complaints: awake , feel ok Events: became awake walkin to bath Objective Physical Exam Last Vital Signs Date Time Temp Pulse Resp B/P (MAP) Pulse Ox O2 Delivery O2 Flow Rate FiO2 02/07/17 09:05 98.2 67 19 129/70 98 Room Air 02/05/17 06:21 100 Laboratory Tests Test 02/06/17 15:04 02/06/17 18:50 02/06/17 23:10 02/07/17 03:40 Ammonia 135 umol/L (11.2-31.7) H 103 umol/L (11.2-31.7) H 90 umol/L (11.2-31.7) H 231 umol/L (11.2-31.7) H Salicylates Level 0.5 ug/mL (2.8-20) L < 5.0 ug/mL (2.8-20) 0.3 ug/mL (2.8-20) L 0.4 ug/mL (2.8-20) L Acetaminophen Level < 10 MCG/ML (10-30) L < 10 MCG/ML (10-30) L < 10 MCG/ML (10-30) L 0 MCG/ML (10-30) L Valproic Acid (Depakene) Level 98 MCG/ML (50-100) 84 MCG/ML (50-100) 80 MCG/ML (50-100) 81 MCG/ML (50-100) Serum Alcohol < 3 mg/dL < 10 mg/dL < 10 mg/dL < 3 mg/dL Test 02/07/17 08:25 Ammonia 52 umol/L (11.2-31.7) H Salicylates Level 0.4 ug/mL (2.8-20) L Acetaminophen Level 0 MCG/ML (10-30) L Valproic Acid (Depakene) Level 74 MCG/ML (50-100) Serum Alcohol < 3 mg/dL General: well developed, no acute distress, other - obese Head: normocophalic Neck: no rigidity Neurologic Exam Mental Status: other - drowsy arousable now awake, coherent Speech: normal speech, no dysarthia Language: normal language, no aphasia Cranial Nerve II: fundus normal Cranial Nerves III, IV, : PERRLA, EOMI, pupils Cranial Nerve V: normal facial sensations, temporales function normal, masseters function normal, pterygoids function normal Cranial Nerve VII: no facial asymmetry, normal facial expressions Cranial Nerve VIII: normal hearing, no nystagmus Cranial Nerve IX: normal palate elevation, gag response Cranial Nerve X: no voice hoarseness Cranial Nerve XI: SCM symmetric, trapezii function normal Cranial Nerve XII: tongue midline, no tongue atrophy/fasciculations Motor System: normal muscle tone, strength 5/5, no involuntary movement, no muscle wasting Sensory: normal pinprick, normal light touch, normal position sense, normal graphesthesia Coordination: other Deep Tendon Reflexes: 1+ bicep (L), 1+ bicep (R), 1+ tricep (L), 1+ tricep (R) , 1+ brachioradialis (L), 1+ brachioradialis (R), 1+ knee (L), 1+ knee (R), 1+ ankle (L), 1+ ankle (R) Reflexes: mute plantar (L), mute plantar (R) Stance: normal Gait: stable Impression/Recommendations Problems: (1) Valproic acid toxicity (2) chronic seizure disorder, noncompiant (3) Depression (4) Hyperammonemia Status: stable Recommendations # [id number] d/c roselia espinosart depakobienvenido in am psych eval CARINE Norwood Feb 07, 2017 11:38
[2017-02-07 12:01] LABS: AMMONIA 64 umol/L (11.2-31.7)
[2017-02-07 12:03] LABS: ALCOHOL < 3 mg/dL; VALPROIC ACID 73 MCG/ML (50-100)
[2017-02-07 12:04] LABS: ACETAMINOPHEN 0 MCG/ML (10-30)
--- NOTE | 2017-02-07 14:54 | General Progress Note ---
Assessment/Plan Status: stable, progressing Assessment/Plan bipolar d/o -depakote er 1000mg qhs -klonopin qhs -dc when medically cleared Subjective Neurologic/Psychiatric: Reports: anxiety, depressed, emotional problems Allergies: Coded Allergies: SULFA (SULFONAMIDE ANTIBIOTICS) (Verified Allergy, Unknown, 03/02/12) Uncoded Allergies: SULFA (Allergy, Mild, 03/02/14) Objective Last 24 Hour Vital Signs Date Time Temp Pulse Resp B/P (MAP) Pulse Ox O2 Delivery O2 Flow Rate FiO2 02/07/17 11:56 98.0 60 19 116/62 97 Room Air 02/07/17 09:05 98.2 67 19 129/70 98 Room Air 02/07/17 08:00 98.2 67 19 129/70 98 Room Air 02/07/17 04:00 97.7 68 18 105/69 96 Room Air 02/07/17 00:00 97.8 76 20 109/73 94 Room Air 02/06/17 19:54 97.9 85 18 103/77 95 Room Air 02/06/17 16:00 97.3 70 20 111/53 96 Room Air Laboratory Tests 02/06/17 15:04: Ammonia 135H, Salicylates Level 0.5L, Acetaminophen Level < 10L, Valproic Acid ( Depakene) Level 98, Serum Alcohol < 3 02/06/17 18:50: Ammonia 103H, Salicylates Level < 5.0, Acetaminophen Level < 10L, Valproic Acid (Depakene) Level 84, Serum Alcohol < 10 02/06/17 23:10: Ammonia 90H, Salicylates Level 0.3L, Acetaminophen Level < 10L, Valproic Acid ( Depakene) Level 80, Serum Alcohol < 10 02/07/17 03:40: Ammonia 231H, Salicylates Level 0.4L, Acetaminophen Level 0L, Valproic Acid ( Depakene) Level 81, Serum Alcohol < 3 02/07/17 08:25: Ammonia 52H, Salicylates Level 0.4L, Acetaminophen Level 0L, Valproic Acid ( Depakene) Level 74, Serum Alcohol < 3 02/07/17 11:10: Ammonia 64H, Salicylates Level 0.6L, Acetaminophen Level 0L, Valproic Acid ( Depakene) Level 73, Serum Alcohol < 3, Vitamin B12 Level 446 02/07/17 13:50: Vitamin B6 Level [Pending], Vitamin D 25-Hydroxy [Pending], 25-Hydroxy Vitamin D2 [Pending], 25-Hydroxy Vitamin D3 [Pending] Height (Feet): 5 Height (Inches): 9.00 Weight (Pounds): 240 General Appearance: no apparent distress, alert, overweight Neurologic: alert, oriented x 3, responsive, normal mood/affect Courtney Ashraf M.D. Feb 07, 2017 14:54
[2017-02-07 15:38] LABS: AMMONIA 94 umol/L (11.2-31.7)
[2017-02-07 15:40] LABS: ALCOHOL < 3 mg/dL; VALPROIC ACID 68 MCG/ML (50-100)
[2017-02-07 15:44] LABS: ACETAMINOPHEN < 10 MCG/ML (10-30)
[2017-02-07 19:47] LABS: AMMONIA 51 umol/L (11.2-31.7)
[2017-02-07] MEDS: clonazePAM 0.5mg tab ORAL SCH (20:06)
[2017-02-07] MEDS: Depakote ER 500mg tab ORAL SCH (20:06)
[2017-02-07 20:08] LABS: ALCOHOL < 3 mg/dL; VALPROIC ACID 60 MCG/ML (50-100)
[2017-02-07 20:15] LABS: ACETAMINOPHEN < 10 MCG/ML (10-30)
[2017-02-07 23:53] LABS: AMMONIA 65 umol/L (11.2-31.7)
[2017-02-08] VITALS: BP 129/75
[2017-02-08] LABS: ALCOHOL < 3 mg/dL
[2017-02-08 00:03] LABS: ACETAMINOPHEN < 10 MCG/ML (10-30); VALPROIC ACID 62 MCG/ML (50-100)
[2017-02-08 04:00] VITALS: BP 113/62
[2017-02-08] MEDS: Lactulose 20gm/30ml UDC ORAL SCH ×3 (08:44→18:15)
[2017-02-08] MEDS: Gabapentin 300 MG/6 ML Soln ORAL SCH ×3 (08:45→18:15)
[2017-02-08] MEDS: Heparin 5000 units/ml inj SUBQ SCH ×2 (08:46→19:57)
--- NOTE | 2017-02-08 10:07 | Pulmonology Progress Note ---
Assessment/Plan Assessment/Plan ASSESSMENT acute toxic metabolic encephalopathy chronic seizure disorder noncompliance Valproic acid toxicity depression acute hepatic encephalopathy bipolar disorder PLAN OF CARE MS floor CT head no acute findings neuro and psych follow labs as per CDC recommendations seizure precautions initially on Keppra while Depakote on hold, became aggressive 02/06, Valproic acid down to normal , Keppra dc and restarted Depakote EEG as per neuro ammonia level high start lactulose LFT stable per psych diagnosed with bipolar, meds optimized as per psych discussed with mother at the bedside , patient can not be dc today due to hindu belief ( cant drive, can t do anything) dc Friday case discussed and evaluated by supervising physician Subjective Allergies: Coded Allergies: SULFA (SULFONAMIDE ANTIBIOTICS) (Verified Allergy, Unknown, 03/02/12) Uncoded Allergies: SULFA (Allergy, Mild, 03/02/14) Subjective sleeping mother at the bedside ammonia high Objective Last 24 Hour Vital Signs Date Time Temp Pulse Resp B/P (MAP) Pulse Ox O2 Delivery O2 Flow Rate FiO2 02/08/17 04:00 97.3 65 18 113/62 95 Room Air 02/08/17 00:00 98.2 77 21 129/75 97 Room Air 02/07/17 19:55 98.4 74 18 125/78 96 Room Air 02/07/17 16:06 97.8 75 19 122/66 96 Room Air 02/07/17 11:56 98.0 60 19 116/62 97 Room Air Objective General Appearance: no acute distress, awake, foul body odor HEENT: normocephalic, atraumatic Cardiovascular: normal rate, regular rhythm, no JVD Abdomen: normal bowel sounds, soft, non tender - obese Neurologic/Psychiatric: awake, alert, responsive, Musculoskeletal: normal muscle bulk Laboratory Tests 02/07/17 11:10: Ammonia 64H, Vitamin B12 Level 446, Salicylates Level 0.6L, Acetaminophen Level 0L, Valproic Acid (Depakene) Level 73, Serum Alcohol < 3 02/07/17 13:50: Vitamin B6 Level [Pending], Vitamin D 25-Hydroxy [Pending], 25-Hydroxy Vitamin D2 [Pending], 25-Hydroxy Vitamin D3 [Pending] 02/07/17 15:10: Ammonia 94H, Salicylates Level 0.8L, Acetaminophen Level < 10L, Valproic Acid ( Depakene) Level 68, Serum Alcohol < 3 02/07/17 18:50: Ammonia 51H, Salicylates Level 0.8L, Acetaminophen Level < 10L, Valproic Acid ( Depakene) Level 60, Serum Alcohol < 3 02/07/17 23:15: Ammonia 65H, Salicylates Level 0.5L, Acetaminophen Level < 10L, Valproic Acid ( Depakene) Level 62, Serum Alcohol < 3 Current Medications Medications (Trade) Dose Ordered Sig/Janet Route PRN Reason Start Time Stop Time Status Last Admin Dose Admin Acetaminophen (Tylenol) 650 mg Q4H PRN ORAL T>100.5 02/06/17 16:30 03/07/17 16:29 Al Hydroxide/Mg Hydroxide (Mylanta II) 30 ml Q6H PRN ORAL dyspepsia 02/06/17 16:30 03/07/17 16:29 Clonazepam (KlonoPIN) 0.5 mg BEDTIME ORAL 02/06/17 21:00 02/13/17 20:59 02/07/17 20:06 Dextrose (Dextrose 50%) STAT PRN IV Hypoglycemia 02/06/17 16:30 03/08/17 16:29 Divalproex Sodium (Depakote ER) 1,000 mg BEDTIME ORAL 02/07/17 21:00 03/08/17 20:59 02/07/17 20:06 Gabapentin (Neurontin) 300 mg THREE TIMES A DAY ORAL 02/06/17 18:00 03/08/17 12:59 02/08/17 08:45 Heparin Sodium (Porcine) (Heparin 5000 units/ml) 5,000 units EVERY 12 HOURS SUBQ 02/06/17 21:00 03/07/17 08:59 02/08/17 08:46 Lactulose (Cephulac) 30 gm THREE TIMES A DAY ORAL 02/07/17 09:00 03/09/17 08:59 02/08/17 08:44 Lorazepam (Ativan 2mg/ml 1ml) 2 mg Q1H PRN IV seizures 02/06/17 16:30 02/12/17 16:29 Morphine Sulfate (Morphine Sulfate) 1 mg Q4H PRN IVP PAIN 4-10 02/06/17 16:30 02/12/17 16:29 Ondansetron HCl (Zofran) 4 mg Q6H PRN IVP Nausea & Vomiting 02/06/17 16:30 03/07/17 16:29 Polyethylene Glycol (Miralax) 17 gm HSPRN PRN ORAL Constipation 02/06/17 21:00 03/07/17 20:59 Zolpidem Tartrate (Ambien) 5 mg HSPRN PRN ORAL Insomnia 02/06/17 21:00 02/12/17 20:59 [facility] Crowder NP Feb 08, 2017 10:07
[2017-02-08 12:15] VITALS: BP 126/77
[2017-02-08] MEDS: Depakote ER 500mg tab ORAL SCH (19:55)
[2017-02-08] MEDS: clonazePAM 0.5mg tab ORAL SCH (19:55)
[2017-02-08 20:00] VITALS: BP 129/76
[2017-02-09] VITALS (8 sets, daily range): BP systolic 109–133; BP diastolic 64–74
[2017-02-09] MEDS: Lactulose 20gm/30ml UDC ORAL SCH ×2 (08:25→12:34)
[2017-02-09] MEDS: Gabapentin 300 MG/6 ML Soln ORAL SCH ×2 (08:25→12:34)
[2017-02-09] MEDS: Heparin 5000 units/ml inj SUBQ SCH (08:26)
--- NOTE | 2017-02-09 10:24 | Pulmonology Progress Note ---
Assessment/Plan Assessment/Plan ASSESSMENT acute toxic metabolic encephalopathy chronic seizure disorder noncompliance Valproic acid toxicity depression acute hepatic encephalopathy bipolar disorder PLAN OF CARE MS floor CT head no acute findings neuro and psych follow labs as per CDC recommendations seizure precautions initially on Keppra while Depakote on hold, became aggressive 02/06, Valproic acid down to normal , Keppra dc and restarted Depakote EEG as per neuro ammonia level high start lactulose LFT stable per psych diagnosed with bipolar, meds optimized as per psych discussed with mother at the bedside , patient can not be dc today due to spiritism belief ( cant drive, can t do anything) dc this am ADDENDUM: PATIENT FELL WHEN WAS GETTING READY FOR DC STATED HE TRIPPED OVER denied LOC, blackout, dizziness, headache, or pain after fall CT head completed stat- no evidence of bleeding no complaints from the patient - dc today as planned case discussed and evaluated by supervising physician Subjective Allergies: Coded Allergies: SULFA (SULFONAMIDE ANTIBIOTICS) (Verified Allergy, Unknown, 03/02/12) Uncoded Allergies: SULFA (Allergy, Mild, 03/02/14) Subjective awake, alert, no seizure activity was not dc yesterday because unable to ride in a car due to spiritism beliefs Objective Last 24 Hour Vital Signs Date Time Temp Pulse Resp B/P (MAP) Pulse Ox O2 Delivery O2 Flow Rate FiO2 02/09/17 08:00 97.7 72 20 111/69 95 Room Air 02/09/17 04:00 98.2 68 20 109/64 96 Room Air 02/09/17 00:00 98.4 58 20 133/74 97 Room Air 02/08/17 20:00 98.2 73 21 129/76 96 Room Air 02/08/17 12:15 98.3 81 20 126/77 95 Room Air Objective General Appearance: no acute distress, awake, foul body odor HEENT: normocephalic, atraumatic Cardiovascular: normal rate, regular rhythm, no JVD Abdomen: normal bowel sounds, soft, non tender - obese Neurologic/Psychiatric: awake, alert, responsive, Musculoskeletal: normal muscle bulk Current Medications Medications (Trade) Dose Ordered Sig/Janet Route PRN Reason Start Time Stop Time Status Last Admin Dose Admin Acetaminophen (Tylenol) 650 mg Q4H PRN ORAL T>100.5 02/06/17 16:30 03/07/17 16:29 Al Hydroxide/Mg Hydroxide (Mylanta II) 30 ml Q6H PRN ORAL dyspepsia 02/06/17 16:30 03/07/17 16:29 Clonazepam (KlonoPIN) 0.5 mg BEDTIME ORAL 02/06/17 21:00 02/13/17 20:59 02/08/17 19:55 Dextrose (Dextrose 50%) STAT PRN IV Hypoglycemia 02/06/17 16:30 03/08/17 16:29 Divalproex Sodium (Depakote ER) 1,000 mg BEDTIME ORAL 02/07/17 21:00 03/08/17 20:59 02/08/17 19:55 Gabapentin (Neurontin) 300 mg THREE TIMES A DAY ORAL 02/06/17 18:00 03/08/17 12:59 02/09/17 08:25 Heparin Sodium (Porcine) (Heparin 5000 units/ml) 5,000 units EVERY 12 HOURS SUBQ 02/06/17 21:00 03/07/17 08:59 02/09/17 08:26 Lactulose (Cephulac) 30 gm THREE TIMES A DAY ORAL 02/07/17 09:00 03/09/17 08:59 02/09/17 08:25 Lorazepam (Ativan 2mg/ml 1ml) 2 mg Q1H PRN IV seizures 02/06/17 16:30 02/12/17 16:29 Morphine Sulfate (Morphine Sulfate) 1 mg Q4H PRN IVP PAIN 4-10 02/06/17 16:30 02/12/17 16:29 Ondansetron HCl (Zofran) 4 mg Q6H PRN IVP Nausea & Vomiting 02/06/17 16:30 03/07/17 16:29 Polyethylene Glycol (Miralax) 17 gm HSPRN PRN ORAL Constipation 02/06/17 21:00 03/07/17 20:59 Zolpidem Tartrate (Ambien) 5 mg HSPRN PRN ORAL Insomnia 02/06/17 21:00 02/12/17 20:59 Dez MirandaTianna espinal NP Feb 09, 2017 10:24
--- NOTE | 2017-02-09 11:55 | Diagnostic Imaging Report ---
Indication: Status post fall Comparison: 02.04.17 Technique: Contiguous helical CT images through the brain was performed without intravenous contrast. Axial, coronal and sagittal reconstructions were reformatted. CT dose: Total DLP 1425 mGycm, CTDI volume 70.4 mGy Findings: There is no acute intracranial hemorrhage or infarct. No mass, mass effect or midline shift is identified. Ventricles and sulci are within normal limits. No extra-axial fluid collections are seen. Bony calvarium is intact. Mastoid air cells and visualized paranasal sinuses are clear. Impression: No acute intracranial abnormalities. The CT scanner at [facility] is accredited by the [employer] and the scans are performed using protocols designed to limit radiation exposure to as low as reasonably achievable to attain images of sufficient resolution adequate for diagnostic evaluation.
--- NOTE | 2017-02-09 18:40 | General Progress Note ---
Assessment/Plan Status: stable Assessment/Plan bipolar d/o -depakote er 1000mg qhs -klonopin qhs -dc when medically cleared Subjective Neurologic/Psychiatric: Reports: anxiety, depressed, emotional problems Allergies: Coded Allergies: SULFA (SULFONAMIDE ANTIBIOTICS) (Verified Allergy, Unknown, 03/02/12) Uncoded Allergies: SULFA (Allergy, Mild, 03/02/14) Subjective the pt is uncooperative and manipulative / mom at bedside the pt was observed conversing with mom however not respond when staff speak to him Objective Last 24 Hour Vital Signs Date Time Temp Pulse Resp B/P (MAP) Pulse Ox O2 Delivery O2 Flow Rate FiO2 02/09/17 15:42 97.4 83 21 127/71 95 Room Air 02/09/17 11:00 97.7 84 127/69 99 Room Air 02/09/17 10:45 97.9 84 16 109/65 96 Room Air 02/09/17 10:30 98.2 84 16 116/70 97 Room Air 02/09/17 10:15 84 02/09/17 10:15 98.2 96 Room Air 02/09/17 10:15 20 133/73 02/09/17 08:00 97.7 72 20 111/69 95 Room Air 02/09/17 04:00 98.2 68 20 109/64 96 Room Air 02/09/17 00:00 98.4 58 20 133/74 97 Room Air 02/08/17 20:00 98.2 73 21 129/76 96 Room Air Intake and Output 02/09/17 02/10/17 19:00 07:00 Intake Total 1600 ml Balance 1600 ml Intake Oral 1600 ml # Voids 3 Height (Feet): 5 Height (Inches): 9.00 Weight (Pounds): 240 General Appearance: no apparent distress, alert, obese Neurologic: alert, oriented x 3, normal mood/affect Courtney Ashraf M.D. Feb 09, 2017 18:40
--- NOTE | 2017-02-09 18:42 | General Progress Note ---
Assessment/Plan Status: stable, progressing Assessment/Plan bipolar d/o -depakote er 1000mg qhs -klonopin qhs -dc when medically cleared Subjective Date patient seen: Feb 08, 2017 Constitutional: Reports: malaise, weakness Allergies: Coded Allergies: SULFA (SULFONAMIDE ANTIBIOTICS) (Verified Allergy, Unknown, 03/02/12) Uncoded Allergies: SULFA (Allergy, Mild, 03/02/14) Subjective the pt is uncooperative and manipulative / mom at bedside the pt was observed conversing with mom however not respond when staff speak to him no changes since previous encounter Objective Last 24 Hour Vital Signs Date Time Temp Pulse Resp B/P (MAP) Pulse Ox O2 Delivery O2 Flow Rate FiO2 02/09/17 15:42 97.4 83 21 127/71 95 Room Air 02/09/17 11:00 97.7 84 127/69 99 Room Air 02/09/17 10:45 97.9 84 16 109/65 96 Room Air 02/09/17 10:30 98.2 84 16 116/70 97 Room Air 02/09/17 10:15 84 02/09/17 10:15 98.2 96 Room Air 02/09/17 10:15 20 133/73 02/09/17 08:00 97.7 72 20 111/69 95 Room Air 02/09/17 04:00 98.2 68 20 109/64 96 Room Air 02/09/17 00:00 98.4 58 20 133/74 97 Room Air 02/08/17 20:00 98.2 73 21 129/76 96 Room Air Intake and Output 02/09/17 02/10/17 19:00 07:00 Intake Total 1600 ml Balance 1600 ml Intake Oral 1600 ml # Voids 3 Height (Feet): 5 Height (Inches): 9.00 Weight (Pounds): 240 General Appearance: no apparent distress, alert, obese Neurologic: alert, oriented x 3, responsive, normal mood/affect Courtney Ashraf M.D. Feb 09, 2017 18:42
[2017-02-10 13:20] LABS: VITAMIN D 25-OH TOTAL 15 ng/mL (.)
--- NOTE | 2017-02-11 08:18 | Discharge Summary ---
Discharge Summary Hospital Course Date of Admission Feb 05, 2017 at 04:06 Date of Discharge Feb 09, 2017 at 18:04 Admitting Diagnosis seizure HPI Mariano Brock is a 36 year old male who was admitted on Feb 05, 2017 at 04:06 for Seizure Hospital Course dc summary #[id number] Discharge Medications Continued Medications: Divalproex Sodium (Depakote) 500 Mg Tabec 500 MG PO BID Gabapentin (Neurontin) 300 Mg Capsule 300 MG ORAL BEDTIME, #7 CAP 0 Refills Discontinued Medications: Levetiracetam (Levetiracetam) 500 Mg Tab 500 MG ORAL Q12HR, #60 TAB Discharge Condition Upon Discharge: stable Discharge Disposition Patient was discharged to Home () Discharge Diagnoses: Dez (Dionicio),Tianna DURAN Feb 11, 2017 08:18
[2017-02-11] MEDS ORDERED: KLONOPIN0.5 MG ORAL (08:20)
--- NOTE | 2017-02-11 23:45 | Electroencephalogram ---
DATE OF PROCEDURE: 02/07/2017 ELECTROENCEPHALOGRAPHY REPORT REQUESTING PHYSICIAN: Chelita Thomas M.D. HISTORY: This is a 36-year-old man with a history of chronic seizure disorder, now with exacerbation, maintained on Keppra and starting now on Depakote. EEG was done using 18 electrodes placed scalp to scalp, scalp to ear montages according to 10/20 [employer] System. Most wakeful portions of recording, background activity consists of a poorly organized mixture of 6 to 7 and 7 to 8 cycles per second theta activities bilaterally with no asymmetry from side to side and there was no spike and wave activities. As recording progressed, the patient was in and out of drowsiness with appearance of further disorganization and dissolution of theta activity with predominance of beta activities bilaterally. IMPRESSION: Abnormal EEG and presence of mild diffuse slowing. COMMENT: Above abnormality indicate a presence of cerebral global dysfunction, which may reflect toxic or metabolic derangement or postictal state. Clinical correlation is necessary. Checo Taylor M.D. DR: MARK JOB#: [id number] CC:
--- NOTE | 2017-02-12 | Discharge Summary 2 SIG ---
DATE OF ADMISSION: 02/05/2017 DATE OF DISCHARGE: 02/09/2017 REASON FOR ADMISSION: 36-year-old male with history of seizure, presented to emergency department status post seizure. Seizure was witnessed by his mother on the street, which lasted for several seconds. The patient reported hitting his head. The patient was on Keppra and Depakote for seizure disorder management. Upon arrival, the patient was lethargic and postictal , and was unable to provide any additional information. The patient remained unconscious in the emergency department, responding only to painful stimuli. The patient was admitted for further management for acute encephalopathy, chronic seizure disorder, noncompliance with Depakote and valproic acid toxicity. HOSPITAL STAY: The patient was admitted to telemetry floor. Neurology and psychiatric evaluations were requested. CT of the head revealed no acute intracranial pathology. No bleeding. No mass effect. Neurology and Psychiatry both followed the patient. Laboratory workup was done as per CBC recommendations. Seizure precautions were maintained. Initially, he was on Keppra while Depakote was on hold due to toxicity. Patient subsequently became aggressive with Keppra. Subsequently, valproic acid level down to normal. Keppra discontinued and the Depakote was restarted. Ammonia level was high. The patient was started on lactulose. LFTs were stable. Ammonia down from 231 to 65. Psychiatrist seen and evaluated the patient, and diagnosed the patient with bipolar disorder. Medication regimen optimized as per psychiatrist. The patient fell on 02/09/2017. No seizure. He fell while trying to get ready to go home. Denied dizziness, lightheadedness, blackout or loss of consciousness. No seizure as per mother who was at the bedside. CT of the head was repeated stat. No evidence of bleeding. No complaint from the patient. The patient was stable for discharge. FINAL DIAGNOSES: 1. Acute toxic metabolic encephalopathy secondary to seizure breakout, resolved. 2. Chronic seizure disorder. 3. Noncompliance. 4. Valproic acid toxicity. 5. Bipolar disorder. 6. Depression. 7. Acute hepatic encephalopathy. DISCHARGE INSTRUCTIONS: The patient was discharged home. Follow up with the primary medical doctor. DISCHARGE MEDICATIONS: See medication reconciliation list. Chelita Thomas M.D. Tianna Garces N.P. (Vanchtein) DR: NICOLAS JOB#: [id number] CC: IVON
--- NOTE | 2017-02-17 12:18 | Cardiology Report ---
APPROVED REPORT EKG Measurement Heart [id number] OK 160P19 [id number] Sinus bradycardia Right bundle branch block Abnormal ECG
== END 2017-02-09 18:04 | disposition home or self-care (01) | DRG 53 ==
LOC: EDBD 23:43 → EMR 23:59 → 2E 02-05 04:06 → EDBEDREQ 02-05 04:31 → 2E 02-05 06:21 → 4E 02-06 15:36
DX: G40.909 Epilepsy, unspecified, not intractable, without status epilepticus (principal); K72.00 Acute and subacute hepatic failure without coma; G92 Toxic encephalopathy; T42.6X2A Poisoning by other antiepileptic and sedative-hypnotic drugs, intentional self-harm, initial encounter; E66.9 Obesity, unspecified; T42.6X5A Adverse effect of other antiepileptic and sedative-hypnotic drugs, initial encounter; Z91.14 Patient's other noncompliance with medication regimen; S00.83XA Contusion of other part of head, initial encounter; X58.XXXA Exposure to other specified factors, initial encounter; Y92.410 Unspecified street and highway as the place of occurrence of the external cause; Y99.8 Other external cause status; F31.9 Bipolar disorder, unspecified; G31.84 Mild cognitive impairment of uncertain or unknown etiology; Z68.35 Body mass index [BMI] 35.0-35.9, adult; Z59.0 Homelessness; Z88.2 Allergy status to sulfonamides; Z96.651 Presence of right artificial knee joint; Z81.8 Family history of other mental and behavioral disorders
CPT/HCPCS: 36415; 70450; 80053; 80164; 80300; 80329; 82140; 82306; 82607; 83605; 84207; 85025; 87081; 93005; 95819; 99285; J2405

== ENCOUNTER 2017-02-26 09:06 | Emergency (ER) | payer MEDICAID, OTHER ==
[~2017-02-26] VITALS: Ht 167.6 cm; Wt 86.2 kg
[~2017-02-26 09:06] MED LIST changes: +DEPAKOTE125 MG PO; +KLONOPIN0.5 MG ORAL; +KLONOPIN2 MG PO; +NEURONTIN300 MG ORAL
[2017-02-26 09:14] VITALS: BP 100/43
--- NOTE | 2017-02-26 09:39 | Emergency Room Report ---
History of Present Illness General Chief Complaint: Seizure Source: Family Member Present Illness HPI 37-year-old male history of seizures noncompliant with medication presenting with seizure. Patient currently postictal and not able to provide history, patient was visiting mother who was admitted upstairs in the same hospital, proceeded to have generalized tonic-clonic seizure that was witnessed by staff. Per family patient is noncompliant with medications. Review of patient charts, patient was recently admitted and discharged from [facility] on February 11. The patient was admitted for seizures, was on Depakote and Keppra, Keppra was DC'd and patient was told to continue Depakote. During that time patient had a CT of his head which was negative for acute intracranial pathology. During this admission patient was also diagnosed with bipolar disorder. Patient also had increased ammonia was tx with lactulose Allergies: Coded Allergies: SULFA (SULFONAMIDE ANTIBIOTICS) (Verified Allergy, Unknown, 03/02/12) Uncoded Allergies: SULFA (Allergy, Mild, 03/02/14) Patient History Past Medical History: see triage record Past Surgical History: none Pertinent Family History: none Reviewed Nursing Documentation: PMH: Agreed, PSxH: Agreed Nursing Documentation-PMH Hx Cardiac Problems: No Hx Cancer: No Hx Gastrointestinal Problems: No Hx Neurological Problems: Yes Hx Seizures: Yes Hx Epilepsy: Yes Review of Systems All Other Systems: negative except mentioned in HPI Physical Exam Vital Signs Date Time Temp Pulse Resp B/P (MAP) Pulse Ox O2 Delivery O2 Flow Rate FiO2 02/26/17 09:07 77 18 100/43 99 02/26/17 09:14 97.6 Room Air Sp02 EP Interpretation: reviewed, normal General Appearance: other - Young male, not responsive/post ictal, protecting airway not in respiratory distress Head: normocephalic, atraumatic Eyes: bilateral eye normal inspection, bilateral eye PERRL, bilateral eye EOMI ENT: normal ENT inspection, normal pharynx, moist mucus membranes Neck: normal inspection, full range of motion, supple, no meningismus Respiratory: normal inspection, lungs clear, normal breath sounds, no respiratory distress, no retraction, no wheezing, chest symmetrical Cardiovascular #1: normal inspection, regular rate, rhythm, no edema, normal capillary refill Cardiovascular #2: 2+ radial (R), 2+ radial (L) Gastrointestinal: normal inspection, non tender, soft, non-distended, no guarding Musculoskeletal: normal inspection, back normal, normal range of motion, non- tender Neurologic: other - Post ictal/not responsive, corneal and gag reflex intact Psychiatric: normal inspection, judgement/insight normal, memory normal Skin: normal inspection, normal color, no rash, warm/dry, well hydrated, normal turgor Medical Decision Making Diagnostic Impression: Primary Impression: Seizure disorder ER Course 37-year-old male with history of seizures with p/w seizure DDX: Primary seizure, triggered by infection UTI/PNA vs. dehydration vs. medication non compliance Electrolyte disturbance: hypoglycemia vs. hyponatremia vs. hypocalcemia vs. hypomagnesemia Cardiac: Arrythmia/acs Intracranial pathology: intracranial bleed, stroke Tox Plan: BGM EKG Labs, seizure medication levels, tox labs Will hold CT for now as patient does have a history of seizures, and no reported head trauma. patient also had recent head CT within last 2 weeks ER course: No further seizures in ED Has been stable during ED stay VSS and normal labs unremarkable pt received valproate IV patient observed by staff, has had eyes closed but noted to still be responsive now awake and alert, aox4, no neurological sx Disposition: Patient will be discharged to home. Patient instructed to be compliant with anti seizure medications Patient is to follow up with their primary care doctor in 5 days and neurologist within 1 week. Strict return precautions discussed such as severe headache, fever, chills, neck pain, prolonged or increased frequency of seizures. Patient verbalized understanding and agrees with plan. EKG Diagnostic Results EP Interpretation: Yes Rate: normal Rhythm: NSR ST Segments: Right bundle branch block ASA given to patient: No Rhythm Strip EP Interpretation: Yes Rate: 74 Rhythm: NSR, no PVCs, no ectopy Chest X-ray CXR: Ordered: Yes 1 view Indication: Chest pain EP interpretation: Yes Interpretation: No consolidation, no effusion, no PTX, no acute cardiopulmonary disease Impression: No acute disease Electronically signed by Ronnie Khanna MD Laboratory Tests Test 02/26/17 09:52 White Blood Count 8.5 K/UL (4.8-10.8) Red Blood Count 4.99 M/UL (4.70-6.10) Hemoglobin 14.9 G/DL (14.2-18.0) Hematocrit 43.5 % (42.0-52.0) Mean Corpuscular Volume 87 FL (80-99) Mean Corpuscular Hemoglobin 29.8 PG (27.0-31.0) Mean Corpuscular Hemoglobin Concent 34.2 G/DL (32.0-36.0) Red Cell Distribution Width 12.9 % (11.6-14.8) Platelet Count 346 K/UL (150-450) Mean Platelet Volume 6.4 FL (6.5-10.1) L Neutrophils (%) (Auto) 51.5 % (45.0-75.0) Lymphocytes (%) (Auto) 37.3 % (20.0-45.0) Monocytes (%) (Auto) 6.1 % (1.0-10.0) Eosinophils (%) (Auto) 3.4 % (0.0-3.0) H Basophils (%) (Auto) 1.7 % (0.0-2.0) Sodium Level 138 MMOL/L (136-145) Potassium Level 3.5 MMOL/L (3.5-5.1) Chloride Level 100 MMOL/L (98-107) Carbon Dioxide Level 32 MMOL/L (21-32) Anion Gap 6 mmol/L (5-15) Blood Urea Nitrogen 5 mg/dL (7-18) L Creatinine 1.3 MG/DL (0.55-1.30) Estimate Glomerular Filtration Rate > 60 mL/min (>60) Glucose Level 73 MG/DL (74-106) L Calcium Level 9.5 MG/DL (8.5-10.1) Total Bilirubin 0.2 MG/DL (0.2-1.0) Aspartate Amino Transferase (AST) 17 U/L (15-37) Alanine Aminotransferase (ALT) 29 U/L (12-78) Alkaline Phosphatase 60 U/L (46-116) Ammonia 12 umol/L (11.2-31.7) Troponin I 0.000 ng/mL (0.000-0.056) Total Protein 7.9 G/DL (6.4-8.2) Albumin 4.2 G/DL (3.4-5.0) Globulin 3.7 g/dL Albumin/Globulin Ratio 1.1 (1.0-2.7) Salicylates Level 0.4 ug/mL (2.8-20) L Acetaminophen Level < 2 MCG/ML (10-30) L Valproic Acid Level 4 MCG/ML (50-100) L Serum Alcohol < 3 mg/dL Last Vital Signs Date Time Temp Pulse Resp B/P (MAP) Pulse Ox O2 Delivery O2 Flow Rate FiO2 02/26/17 09:14 85 18 Room Air 02/26/17 09:14 97.6 100/43 100 Disposition: HOME, SELF-CARE Condition: Serious Patient Instructions: Seizure, Adult TonaoRonnie M.D. Feb 26, 2017 09:39
[2017-02-26 10:06] LABS: BASOPHILS % (AUTO) 1.7 % (0.0-2.0); EOSINOPHILS % (AUTO) 3.4 % (0.0-3.0); LYMPHOCYTES % (AUTO) 37.3 % (20.0-45.0); MEAN CORPUSCULAR HEMOGLOBIN 29.8 PG (27.0-31.0); MEAN CORPUSCULAR HGB CONC 34.2 G/DL (32.0-36.0); MEAN CORPUSCULAR VOLUME 87 FL (80-99); MEAN PLATELET VOLUME 6.4 FL (6.5-10.1); MONOCYTES % (AUTO) 6.1 % (1.0-10.0); NEUTROPHILS % (AUTO) 51.5 % (45.0-75.0); PLATELET COUNT 346 K/UL (150-450); RED BLOOD COUNT 4.99 M/UL (4.70-6.10); RED CELL DISTRIBUTION WIDTH 12.9 % (11.6-14.8); WHITE BLOOD COUNT 8.5 K/UL (4.8-10.8)
[2017-02-26 10:30] LABS: ALANINE AMINOTRANSFERASE 29 U/L (12-78); ALBUMIN/GLOBULIN RATIO 1.1 (1.0-2.7); ALCOHOL < 3 mg/dL; ANION GAP 6 mmol/L (5-15); ASPARTATE AMINO TRANSFERASE 17 U/L (15-37); CALCIUM 9.5 MG/DL (8.5-10.1); CARBON DIOXIDE 32 MMOL/L (21-32); CHLORIDE 100 MMOL/L (98-107); CREATININE 1.3 MG/DL (0.55-1.30); GLOMERULAR FILTRATION RATE > 60 mL/min (>60); POTASSIUM 3.5 MMOL/L (3.5-5.1); SODIUM 138 MMOL/L (136-145); TOTAL PROTEIN 7.9 G/DL (6.4-8.2)
[2017-02-26 10:31] LABS: ACETAMINOPHEN < 2 MCG/ML (10-30)
[2017-02-26] MEDS ORDERED: Valproate Sodium INJ 750 MG in D5W 47.5 ML IVPB ONE (11:00)
--- NOTE | 2017-02-26 12:20 | Diagnostic Imaging Report ---
Indication: Chest pain Technique: One view of the chest Comparison: none Findings: Inspiration is suboptimal. The heart is enlarged. Lungs and pleural spaces are clear Impression: Cardiomegaly Hypoventilatory exam No acute process
[2017-02-26 14:39] VITALS: BP 138/84
--- NOTE | 2017-02-28 13:32 | Cardiology Report ---
APPROVED REPORT EKG Measurement Heart [id number] 170P31 [id number] Normal sinus rhythm Right bundle branch block Abnormal ECG
== END 2017-02-26 14:36 | disposition home or self-care (01) ==
LOC: EMR 09:46
DX: G40.909 Epilepsy, unspecified, not intractable, without status epilepticus (principal); Z88.2 Allergy status to sulfonamides; I51.7 Cardiomegaly
CPT/HCPCS: 36415; 71010; 80053; 80164; 80329; 82140; 84484; 85025; 93005; 96365; 99284

== ENCOUNTER 2017-05-29 16:58 | Emergency (ER) | payer MEDICAID, OTHER ==
[~2017-05-29] VITALS: Ht 175.3 cm; Wt 68.0 kg
[2017-05-29 16:58] VITALS: BP 116/71
--- NOTE | 2017-05-29 17:46 | Emergency Room Report ---
History of Present Illness General Chief Complaint: Seizure Source: Patient Present Illness HPI 37 yo male patient BIB ambulance s/p seizure x2. EMS reports first seizure at 1:47 PM and second seizure at 3:46 PM. Patient reports hx of seizures treated with Depakote and Klonopin. Patient reports he needs a refill of his Klonopin medication. Patient states he has not had contacted his doctor for refill of his medications. Patient reports falling and hitting his head during seizure. Patient denies smoking, drug or alcohol use. Patient denies fever, SOB, chest pain, dizziness. Allergies: Coded Allergies: SULFA (SULFONAMIDE ANTIBIOTICS) (Verified Allergy, Unknown, 03/02/12) Uncoded Allergies: SULFA (Allergy, Mild, 03/02/14) Patient History Past Medical History: see triage record Past Surgical History: unable to obtain Pertinent Family History: unable to obtain Reviewed Nursing Documentation: PMH: Agreed, PSxH: Agreed Nursing Documentation-PMH Hx Cardiac Problems: No Hx Diabetes: Yes Hx Cancer: No Hx Gastrointestinal Problems: No History Of Psychiatric Problem: Yes - depression Hx Neurological Problems: Yes Hx Seizures: Yes Hx Epilepsy: Yes Review of Systems All Other Systems: negative except mentioned in HPI Physical Exam Vital Signs Date Time Temp Pulse Resp B/P (MAP) Pulse Ox O2 Delivery O2 Flow Rate FiO2 05/29/17 16:40 97.9 90 16 116/71 98 Room Air Sp02 EP Interpretation: reviewed, normal General Appearance: no apparent distress, alert, GCS 15, non-toxic, other - pants wet from urination Head: normocephalic, other - abrasion on anterior scalp, 2cm wide, no active bleeding, no ecchymosis, no TTP, negative raccoon eyes, negative terry sign Eyes: bilateral eye normal inspection, bilateral eye PERRL ENT: hearing grossly normal, normal pharynx, no angioedema, normal voice Neck: full range of motion, supple/symm/no masses Respiratory: chest non-tender, lungs clear, normal breath sounds, no respiratory distress, no accessory muscle use, speaking full sentences Cardiovascular #1: regular rate, rhythm, no edema Cardiovascular #2: 2+ carotid (R), 2+ carotid (L), 2+ radial (R), 2+ radial (L) Gastrointestinal: normal bowel sounds, non tender, soft, non-distended, no guarding, no rebound Musculoskeletal: back normal, digits/nails normal, gait/station normal, normal range of motion, non-tender, no calf tenderness Neurologic: alert, oriented x3, responsive, hearing therapist III-XII nml as tested, motor strength/tone normal, sensory intact, speech normal Psychiatric: mood/affect normal Skin: no rash, warm/dry, palpation normal, well hydrated, normal turgor Medical Decision Making PA Attestation Dr. Pelayo is my supervising Physician whom patient management has been discussed with. Diagnostic Impression: Primary Impression: Seizure disorder Additional Impression: Abrasion, scalp w/o infection ER Course Pt. presents to the ED c/o seizure and head trauma. Ddx considered but are not limited to seizure disorder, drug intoxication Began workup for seizure disorder. Vital signs: are WNL, pt. is afebrile ORDERS: CT head Urine drug Valproic acid levels CBC CMP Serum alcohol ED COURSE: Keppra provided to patient in ED Urine drug negative Serum alcohol negative CT negative for fracture, SAH, or active bleed. Patient wound on scalp cleaned, Bacitracin applied; wound covered in sterile dressing. Valproic acid levels low. Patient instructed he needs to take his medications to prevent seizures. Patient states understanding and agreement. Explained to patient likely seizure episode secondary to history seizure disorder. Patient informed he must take his medications to prevent seizure episodes. Patient instructed to follow up with neurologist for further treatment and assessment. Patient states understanding and agreement to treatment plan. Patient is at his baseline mental status, able to ambulate and in no acute distress, hemodynamically stable. Patient is stable for discharge home. Discuss patient with Dr. Keita, agrees to treatment plan, agrees patient is ready for discharge. DISCHARGE: -Rx provided for Bacitracin for wound on scalp At this time pt. is stable for d/c to home. Will provide printed patient care instructions, and any necessary prescriptions. Care plan and follow up instructions have been discussed with the patient prior to discharge Labs Test 05/29/17 18:40 05/29/17 20:00 White Blood Count 8.0 K/UL (4.8-10.8) Red Blood Count 4.25 M/UL (4.70-6.10) Hemoglobin 12.6 G/DL (14.2-18.0) Hematocrit 36.2 % (42.0-52.0) Mean Corpuscular Volume 85 FL (80-99) Mean Corpuscular Hemoglobin 29.6 PG (27.0-31.0) Mean Corpuscular Hemoglobin Concent 34.8 G/DL (32.0-36.0) Red Cell Distribution Width 12.8 % (11.6-14.8) Platelet Count 286 K/UL (150-450) Mean Platelet Volume 7.1 FL (6.5-10.1) Neutrophils (%) (Auto) 68.1 % (45.0-75.0) Lymphocytes (%) (Auto) 21.3 % (20.0-45.0) Monocytes (%) (Auto) 7.6 % (1.0-10.0) Eosinophils (%) (Auto) 1.6 % (0.0-3.0) Basophils (%) (Auto) 1.4 % (0.0-2.0) Sodium Level 136 MMOL/L (136-145) Potassium Level 3.9 MMOL/L (3.5-5.1) Chloride Level 101 MMOL/L (98-107) Carbon Dioxide Level 24 MMOL/L (21-32) Anion Gap 11 mmol/L (5-15) Blood Urea Nitrogen 9 mg/dL (7-18) Creatinine 1.2 MG/DL (0.55-1.30) Estimat Glomerular Filtration Rate > 60 mL/min (>60) Glucose Level 97 MG/DL (74-106) Calcium Level 9.1 MG/DL (8.5-10.1) Total Bilirubin 0.3 MG/DL (0.2-1.0) Aspartate Amino Transf (AST/SGOT) 20 U/L (15-37) Alanine Aminotransferase (ALT/SGPT) 18 U/L (12-78) Alkaline Phosphatase 54 U/L (46-116) Total Protein 7.1 G/DL (6.4-8.2) Albumin 3.8 G/DL (3.4-5.0) Globulin 3.3 g/dL Albumin/Globulin Ratio 1.2 (1.0-2.7) Acetaminophen Level < 2 MCG/ML (10-30) Valproic Acid (Depakene) Level 2 MCG/ML (50-100) Serum Alcohol 1 mg/dL Urine Opiates Screen Negative (NEGATIVE) Urine Barbiturates Screen Negative (NEGATIVE) Phencyclidine (PCP) Screen Negative (NEGATIVE) Urine Amphetamines Screen Negative (NEGATIVE) Urine Benzodiazepines Screen Negative (NEGATIVE) Urine Cocaine Screen Negative (NEGATIVE) Urine Marijuana (THC) Screen Negative (NEGATIVE) EKG Diagnostic Results Rate: normal Rhythm: NSR ST Segments: no acute changes Other Impression Normal sinus rhythm Right bundle branch block ASA given to the pt in ED: No PA Scribe Text Sami Brandon PA-C Rhythm Strip Diag. Results EP Interpretation: yes Rate: 88 Rhythm: NSR PA Scribe Text Sami Brandon PA-C CT/MRI/US Diagnostic Results CT/MRI/US Diagnostic Results : Imaging Test Ordered: CT Head Impression No intracranial hemorrhage or skull fracture. Last Vital Signs Date Time Temp Pulse Resp B/P (MAP) Pulse Ox O2 Delivery O2 Flow Rate FiO2 05/29/17 16:40 97.9 90 16 116/71 98 Room Air Reevaluation Impression 0930 PM Patient reports he believes he needs to be admitted. Patient states he needs to be admitted because of seizure disorder. Patient resting comfortably in bed, able to answer questions, in no acute distress. Patient able to ambulate independently. Disposition: HOME, SELF-CARE Condition: Stable Scripts Bacitracin/Polymyxin B Sulfate (BACITRACIN-POLYMYXIN OINTMENT) 28.35 Gm Oint...g. 1 APPLIC TP BID for 7 Days, GM Prov: Darryn Brandon 05/29/17 Patient Instructions: Abrasion, Seizure, Adult Additional Instructions: Followup with primary care provider and neurologist in 1-3 days for further treatment and followup. Take medications as directed. Keep dressing on scalp clean and dry. Take anti-seizure medications as instructed. Patient questions asked and answered. ER precautions given, patient instructed to return to ER immediately for any new or worsening of symptoms. Darryn Brandon May 29, 2017 17:46
[2017-05-29 18:55] LABS: BASOPHILS % (AUTO) 1.4 % (0.0-2.0); EOSINOPHILS % (AUTO) 1.6 % (0.0-3.0); HEMATOCRIT 36.2 % (42.0-52.0); HEMOGLOBIN 12.6 G/DL (14.2-18.0); LYMPHOCYTES % (AUTO) 21.3 % (20.0-45.0); MEAN CORPUSCULAR VOLUME 85 FL (80-99); MONOCYTES % (AUTO) 7.6 % (1.0-10.0); NEUTROPHILS % (AUTO) 68.1 % (45.0-75.0); PLATELET COUNT 286 K/UL (150-450); RED BLOOD COUNT 4.25 M/UL (4.70-6.10); RED CELL DISTRIBUTION WIDTH 12.8 % (11.6-14.8)
[2017-05-29 19:15] LABS: ANION GAP 11 mmol/L (5-15); BLOOD UREA NITROGEN 9 mg/dL (7-18); CALCIUM 9.1 MG/DL (8.5-10.1); CARBON DIOXIDE 24 MMOL/L (21-32); CHLORIDE 101 MMOL/L (98-107); CREATININE 1.2 MG/DL (0.55-1.30); POTASSIUM 3.9 MMOL/L (3.5-5.1); SODIUM 136 MMOL/L (136-145)
[2017-05-29 19:21] LABS: ALANINE AMINOTRANSFERASE 18 U/L (12-78); ALBUMIN 3.8 G/DL (3.4-5.0); ALBUMIN/GLOBULIN RATIO 1.2 (1.0-2.7); ALKALINE PHOSPHATASE 54 U/L (46-116); ASPARTATE AMINO TRANSFERASE 20 U/L (15-37); BILIRUBIN,TOTAL 0.3 MG/DL (0.2-1.0)
[2017-05-29] MEDS ORDERED: Ammonia Inhalant 0.33mL 1 Amp INH ONE (20:49)
[2017-05-29] MEDS ORDERED: BACITRACIN-P28.35 GM TP (21:03)
[2017-05-29] MEDS ORDERED: Bacitracin Oint UD TOPIC ONE ×2 (21:15→21:23)
[2017-05-29 22:50] VITALS: BP 112/68
[2017-05-29 22:59] VITALS: BP 112/68
--- NOTE | 2017-05-30 14:16 | Diagnostic Imaging Report ---
Indication: Headache Technique: Contiguous 5 mm thick transaxial imaging of the head obtained in a Siemens Sensation [address] scanner. Soft tissue and bone windows generated. Automatic Exposure Control was utilized. Total Dose length Product (DLP): 1544.[address] Dose Index Volume (CTDIvol): 70.38 mGy Comparison: 02/09/2017 Findings: There is mild prominence of the ventricles, basal cisterns, and cerebral sulci consistent with atrophy. Mild, nonspecific, white matter hypoattenuation is noted throughout the brain consistent with chronic small vessel disease. There is no midline shift, edema, acute hemorrhage, mass effect, or abnormal extra-axial fluid collections. Bones and extra osseous soft tissues are unremarkable. Impression: No acute intracranial bleed, mass effect or edema. Mild atrophy of the brain. Nonspecific white matter hypoattenuation probably due to chronic small vessel disease. The CT scanner at [facility] [place] is accredited by the [employer] and the scans are performed using dose optimization techniques as appropriate to a performed exam including Automatic Exposure control.
--- NOTE | 2017-06-01 16:53 | Cardiology Report ---
APPROVED REPORT EKG Measurement Heart [id number] Normal sinus rhythm Right bundle branch block Abnormal ECG
== END 2017-05-29 22:59 | disposition home or self-care (01) ==
LOC: EDBD 16:58 → EMR 18:20
DX: G40.909 Epilepsy, unspecified, not intractable, without status epilepticus (principal); S00.01XA Abrasion of scalp, initial encounter; W19.XXXA Unspecified fall, initial encounter; Y92.9 Unspecified place or not applicable; Z88.2 Allergy status to sulfonamides; E11.9 Type 2 diabetes mellitus without complications; F32.9 Major depressive disorder, single episode, unspecified; R51 Headache; G31.9 Degenerative disease of nervous system, unspecified
CPT/HCPCS: 36415; 70450; 80053; 80164; 80299; 80307; 80329; 85025; 93005; 96360; 99284

== ENCOUNTER 2017-09-23 20:56 | Emergency (ER) | payer MEDICAID ==
[~2017-09-23] VITALS: Ht 175.3 cm; Wt 95.3 kg
[~2017-09-23 20:56] MED LIST changes: +BACITRACIN-P28.35 GM TP
[2017-09-23 21:15] VITALS: BP 134/88
[2017-09-23 21:35] LABS: BASOPHILS % (AUTO) 1.2 % (0.0-2.0); EOSINOPHILS % (AUTO) 1.3 % (0.0-3.0); HEMATOCRIT 42.1 % (42.0-52.0); HEMOGLOBIN 14.1 G/DL (14.2-18.0); LYMPHOCYTES % (AUTO) 28.1 % (20.0-45.0); MEAN CORPUSCULAR VOLUME 81 FL (80-99); MONOCYTES % (AUTO) 6.9 % (1.0-10.0); NEUTROPHILS % (AUTO) 62.5 % (45.0-75.0); PLATELET COUNT 349 K/UL (150-450); RED BLOOD COUNT 5.23 M/UL (4.70-6.10); RED CELL DISTRIBUTION WIDTH 12.7 % (11.6-14.8); WHITE BLOOD COUNT 8.8 K/UL (4.8-10.8)
[2017-09-23 21:41] LABS: ANION GAP 7 mmol/L (5-15); BLOOD UREA NITROGEN 10 mg/dL (7-18); CALCIUM 9.7 MG/DL (8.5-10.1); CARBON DIOXIDE 31 MMOL/L (21-32); CHLORIDE 101 MMOL/L (98-107); CREATININE 1.4 MG/DL (0.55-1.30); POTASSIUM 3.8 MMOL/L (3.5-5.1); SODIUM 139 MMOL/L (136-145)
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
[2017-09-23 21:45] LABS: ALANINE AMINOTRANSFERASE 25 U/L (12-78); ALBUMIN 4.4 G/DL (3.4-5.0); ALBUMIN/GLOBULIN RATIO 1.1 (1.0-2.7); ALKALINE PHOSPHATASE 61 U/L (46-116); ASPARTATE AMINO TRANSFERASE 15 U/L (15-37); BILIRUBIN,TOTAL 0.7 MG/DL (0.2-1.0); CREATINE KINASE 91 U/L (26-308)
[2017-09-23 23:55] VITALS: BP 128/82
[2017-09-24 00:10] VITALS: BP 124/80
[2017-09-24 00:25] VITALS: BP 128/68
[2017-09-24 00:40] VITALS: BP 147/65
[2017-09-24 00:55] VITALS: BP 133/60
[2017-09-24 04:11] VITALS: BP 130/80
[2017-09-24 05:00] VITALS: BP 130/80
--- NOTE | 2017-09-24 09:48 | Diagnostic Imaging Report ---
Indication: Headache Technique: Contiguous 5 mm thick transaxial imaging of the head obtained in a Siemens Sensation [address] scanner. Soft tissue and bone windows generated. Automatic Exposure Control was utilized. Total Dose length Product (DLP): 1383.[address] Dose Index Volume (CTDIvol): 70.38 mGy Comparison: 05/29/2017 Findings: The size and configuration of the cortical sulci, basal cisterns, and ventricles are within normal limits for age. There is no mass effect, midline shift, or edema identified. There is no evidence of acute hemorrhage or abnormal intra-axial or extra-axial fluid collections. The bones and soft tissues are unremarkable. Impression: No mass effect, edema or acute bleed. There is considerable posterior fossa artifact limiting evaluation of the cerebellum and brainstem. The CT scanner at [facility] is accredited by the [employer] and the scans are performed using dose optimization techniques as appropriate to a performed exam including Automatic Exposure control.
--- NOTE | 2017-09-24 10:23 | Diagnostic Imaging Report ---
Indication: Chest pain Comparison: 02/26/2017 A single view chest radiograph was obtained. Findings: Cardiomediastinal appearance is within normal limits for age. Pulmonary vascularity is appropriate. The diaphragmatic contour is smooth and costophrenic angles are sharp. No pleural effusions are identified. The bones are unremarkable. Impression: No acute findings
--- NOTE | 2017-09-24 15:55 | Cardiology Report ---
APPROVED REPORT EKG Measurement Heart [id number] Normal sinus rhythm with sinus arrhythmia Right bundle branch block Abnormal ECG
[2017-09-25] MEDS ORDERED: UNOBMED (08:30)
== END 2017-09-24 05:01 | disposition home or self-care (01) ==
LOC: EDBD 20:56 → EMR 21:15
DX: G40.909 Epilepsy, unspecified, not intractable, without status epilepticus (principal); Z76.5 Malingerer [conscious simulation]; Z88.2 Allergy status to sulfonamides; E11.9 Type 2 diabetes mellitus without complications
CPT/HCPCS: 36415; 70450; 71045; 80053; 80164; 80329; 82550; 84484; 85025; 93005; 99285

== ENCOUNTER 2017-09-24 10:58 | Emergency (ER) | payer MEDICAID ==
[~2017-09-24] VITALS: Ht 170.2 cm; Wt 77.1 kg
[2017-09-24] VITALS (37 sets, daily range): BP systolic 108–140; BP diastolic 58–77
--- NOTE | 2017-09-24 11:05 | Emergency Room Report ---
History of Present Illness General Chief Complaint: Behavioral Complaint Source: EMS (Lenard Germain M.D.) Present Illness HPI Patient presents with altered mentation. He was visiting his mother at a assisted facility. Allegedly he told people that he wanted to kill himself. He was acting bizarrely. According to staff there they thought they saw something that looked like seizure activity however he had no incontinence and had no post ictal period. The patient is refusing to answer. The patient had normal glucose and normal vital signs on outreach specialist assessment. Prior records the patient has a history of seizures and and is on Depakote and gabapentin. In addition to that he takes clonazepam. He was admitted January 2017 with these d/c dx: 1. Acute toxic metabolic encephalopathy secondary to seizure breakout, resolved. 2. Chronic seizure disorder. 3. Noncompliance. 4. Valproic acid toxicity. 5. Bipolar disorder. 6. Depression. 7. Acute hepatic encephalopathy. At that time he was evaluated by Dr. Ashraf. H/O bipolar disorder. In her notes he refused to speak to her but was conversant with mother. (Lenard Germain M.D.) Allergies: Coded Allergies: SULFA (SULFONAMIDE ANTIBIOTICS) (Verified Allergy, Unknown, 03/02/12) Uncoded Allergies: SULFA (Allergy, Mild, 03/02/14) Patient History Limited by: medical condition - patient refuses to answer Past Medical History: see triage record, old chart reviewed Social History: Denies: smoking, alcohol use, drug use Social History Narrative isiting his mother Reviewed Nursing Documentation: PMH: Agreed; PSxH: Agreed (Lenard Germain M.D.) Nursing Documentation-PMH Past Medical History: No Stated History Hx Cardiac Problems: No Hx Diabetes: Yes Hx Cancer: No Hx Gastrointestinal Problems: No Hx Neurological Problems: Yes Hx Seizures: Yes Hx Epilepsy: Yes (Lenard Germain M.D.) Review of Systems All Other Systems: limited (Lenard Germain M.D.) Physical Exam Vital Signs Date Time Temp Pulse Resp B/P (MAP) Pulse Ox O2 Delivery O2 Flow Rate FiO2 09/24/17 10:48 97.3 87 16 138/42 100 Room Air 97.3 Sp02 EP Interpretation: reviewed, normal General Appearance: well appearing, no apparent distress Head: normocephalic Eyes: bilateral eye PERRL, bilateral eye other - eye lash reflex++ ENT: moist mucus membranes - no lingual macerations Neck: supple Respiratory: lungs clear, normal breath sounds Cardiovascular #1: regular rate, rhythm Cardiovascular #2: 2+ radial (R) Gastrointestinal: normal inspection, normal bowel sounds, non tender, no mass, non-distended Musculoskeletal: back normal, normal range of motion Neurologic: responsive - joselyn pain, motor strength/tone normal, DTRs symmetric, sensory intact Psychiatric: other - refuses to answer, but then states "kill me" Reflexes: 2+ knee (R), 2+ knee (L) Skin: warm/dry, other - ecchymoses L chest, recent EKG pad august (Lenard Germain M.D.) Medical Decision Making Restraint Attestation I, Lenard Germain MD, have personally evaluated this patient. Laboratory tests have been reviewed and addressed accordingly. The patient is deemed to present a danger to themselves and/or others. This is based on the exam, history ( provided by patient, EMS/[facility] and/or family) and observed or reported behavior. Attempts for non-invasive measures have been considered and/or attempted, however, have been futile. It is in the best interest of the nursing staff, the patient, and others involved in this patient's care that behavioral restraints be applied. Patient evaluation reveals the following: Time out of not behavioral restraints and is stating he wants to kill himself Medical: Substance Abuse Behavioral: Depression Reaction to Intervention: Other Restraint Reassesment On reassessment of the patient, the patient will continue to require restraints for the safety of the patient, the nursing staff and others involved in the care of this patient. We are removing ankle restraints as he is more calm with sedation. (Lenard Germain M.D.) Restraint Attestation I, Ronnie Khanna MD, have personally evaluated this patient. Laboratory tests have been reviewed and addressed accordingly. The patient is deemed to present a danger to themselves and/or others. This is based on the exam, history ( provided by patient, EMS/[facility] and/or family) and observed or reported behavior. Attempts for non-invasive measures have been considered and/or attempted, however, have been futile. It is in the best interest of the nursing staff, the patient, and others involved in this patient's care that behavioral restraints be applied. Patient evaluation reveals the following: (Ronnie Khanna M.D.) Diagnostic Impression: Primary Impression: Acute encephalopathy Additional Impressions: Epileptic seizure, generalized Behavioral disorder ER Course The patient presents with altered mentation and possible seizure activity. Differential includes seizure, valproic acid toxicity, suicidal ideation amongst others. The patient will be evaluated with EKG, labs including valproic acid. He'll be treated with IV hydration and observation. Patient attempting to get up off of the gurney. He's not responding to verbal commands or de-escalation. He is asking that we just "kill him". Finally assisted into sitting back in the gurney however he is at risk for falling and therefore non-behavioral restraints are ordered. Patient without focality and good strength all 4 - CT not indicated. Patient tore off non-behavioral restraints. Sedation has been ordered. The patient needs to be temporarily restrained with behavioral restraints as he at risk of hurting himself and other people. This is needed until sedation has been achieved. Labs with low valproic acid level. Rest unremarkable. EKG without injury. RBBB. A dose has been ordered IV. Sedation helping. Ankle restraints removed. Signed out to Dr. Allen for re-evaluation when more alert. May need psychiatric evaluation. Laboratory Tests Test 09/24/17 11:15 09/24/17 11:27 White Blood Count 7.4 K/UL (4.8-10.8) Red Blood Count 6.05 M/UL (4.70-6.10) Hemoglobin 16.2 G/DL (14.2-18.0) Hematocrit 49.8 % (42.0-52.0) Mean Corpuscular Volume 82 FL (80-99) Mean Corpuscular Hemoglobin 26.8 PG (27.0-31.0) L Mean Corpuscular Hemoglobin Concent 32.6 G/DL (32.0-36.0) Red Cell Distribution Width 12.7 % (11.6-14.8) Platelet Count 375 K/UL (150-450) Mean Platelet Volume 7.1 FL (6.5-10.1) Neutrophils (%) (Auto) 62.2 % (45.0-75.0) Lymphocytes (%) (Auto) 28.7 % (20.0-45.0) Monocytes (%) (Auto) 6.3 % (1.0-10.0) Eosinophils (%) (Auto) 1.5 % (0.0-3.0) Basophils (%) (Auto) 1.3 % (0.0-2.0) Sodium Level 137 MMOL/L (136-145) Potassium Level 4.3 MMOL/L (3.5-5.1) Chloride Level 97 MMOL/L (98-107) L Carbon Dioxide Level 26 MMOL/L (21-32) Anion Gap 14 mmol/L (5-15) Blood Urea Nitrogen 10 mg/dL (7-18) Creatinine 1.2 MG/DL (0.55-1.30) Estimate Glomerular Filtration Rate > 60 mL/min (>60) Glucose Level 91 MG/DL (74-106) Calcium Level 10.1 MG/DL (8.5-10.1) Total Bilirubin 0.7 MG/DL (0.2-1.0) Aspartate Amino Transferase (AST) 32 U/L (15-37) Alanine Aminotransferase (ALT) 24 U/L (12-78) Alkaline Phosphatase 68 U/L (46-116) Total Protein 9.8 G/DL (6.4-8.2) H Albumin 4.9 G/DL (3.4-5.0) Globulin 4.9 g/dL Albumin/Globulin Ratio 1.0 (1.0-2.7) Salicylates Level 1.1 ug/mL (2.8-20) L Urine Opiates Screen Negative (NEGATIVE) Acetaminophen Level < 2 MCG/ML (10-30) L Urine Barbiturates Screen Negative (NEGATIVE) Phencyclidine (PCP) Screen Negative (NEGATIVE) Urine Amphetamines Screen Negative (NEGATIVE) Urine Benzodiazepines Screen Negative (NEGATIVE) Urine Cocaine Screen Negative (NEGATIVE) Urine Marijuana (THC) Screen Negative (NEGATIVE) Serum Alcohol < 3 mg/dL Ammonia 11 umol/L (11-32) Valproic Acid Level 28 MCG/ML (50-100) L (Lenard Germain M.D.) ER Course pt now awake and alert. I had this patient yesterday and he admitted to malingering because he wants a place to sleep in the ER. he is ready and safe for DC home I will go patient, he is awake alert, he knows his name and knows where he is, however when he was going to be escorted out of the emergency room, he became violent and then swung again at staff. Restraints were applied again on wrists. And police was called. Patient is NOT suicidal. (Ronnie Khanna M.D.) ER Course After prolonged observation in the emergency room Patient was reported to have another seizure activity Review of medical records reveals low Depakote level at 28 This was addressed by providing further Depakote Patient has had previous workup as inpatient showing abnormal EEG findings At this time given the patient's repeat activity He will require further inpatient care Patient also has underlying psychiatric disorder previously documented as possible bipolar disorder and depressive disorder Patient becomes combative at times requiring restraints After initial evaluation patient requiring inpatient care Secondary to insurance purposes requires transfer for continued care Patient is stable for transfer Labs Test 09/24/17 11:15 09/24/17 11:27 White Blood Count 7.4 K/UL (4.8-10.8) Red Blood Count 6.05 M/UL (4.70-6.10) Hemoglobin 16.2 G/DL (14.2-18.0) Hematocrit 49.8 % (42.0-52.0) Mean Corpuscular Volume 82 FL (80-99) Mean Corpuscular Hemoglobin 26.8 PG (27.0-31.0) Mean Corpuscular Hemoglobin Concent 32.6 G/DL (32.0-36.0) Red Cell Distribution Width 12.7 % (11.6-14.8) Platelet Count 375 K/UL (150-450) Mean Platelet Volume 7.1 FL (6.5-10.1) Neutrophils (%) (Auto) 62.2 % (45.0-75.0) Lymphocytes (%) (Auto) 28.7 % (20.0-45.0) Monocytes (%) (Auto) 6.3 % (1.0-10.0) Eosinophils (%) (Auto) 1.5 % (0.0-3.0) Basophils (%) (Auto) 1.3 % (0.0-2.0) Sodium Level 137 MMOL/L (136-145) Potassium Level 4.3 MMOL/L (3.5-5.1) Chloride Level 97 MMOL/L (98-107) Carbon Dioxide Level 26 MMOL/L (21-32) Anion Gap 14 mmol/L (5-15) Blood Urea Nitrogen 10 mg/dL (7-18) Creatinine 1.2 MG/DL (0.55-1.30) Estimat Glomerular Filtration Rate > 60 mL/min (>60) Glucose Level 91 MG/DL (74-106) Calcium Level 10.1 MG/DL (8.5-10.1) Total Bilirubin 0.7 MG/DL (0.2-1.0) Aspartate Amino Transf (AST/SGOT) 32 U/L (15-37) Alanine Aminotransferase (ALT/SGPT) 24 U/L (12-78) Alkaline Phosphatase 68 U/L (46-116) Total Protein 9.8 G/DL (6.4-8.2) Albumin 4.9 G/DL (3.4-5.0) Globulin 4.9 g/dL Albumin/Globulin Ratio 1.0 (1.0-2.7) Salicylates Level 1.1 ug/mL (2.8-20) Urine Opiates Screen Negative (NEGATIVE) Acetaminophen Level < 2 MCG/ML (10-30) Urine Barbiturates Screen Negative (NEGATIVE) Phencyclidine (PCP) Screen Negative (NEGATIVE) Urine Amphetamines Screen Negative (NEGATIVE) Urine Benzodiazepines Screen Negative (NEGATIVE) Urine Cocaine Screen Negative (NEGATIVE) Urine Marijuana (THC) Screen Negative (NEGATIVE) Serum Alcohol < 3 mg/dL Ammonia 11 umol/L (11-32) Valproic Acid (Depakene) Level 28 MCG/ML (50-100) (Lindy North DO) EKG Diagnostic Results Rate: normal Rhythm: NSR ST Segments: no acute changes - RBBB (Lenard Germain M.D.) Rhythm Strip Diag. Results EP Interpretation: yes Rhythm: NSR, no PVC's, no ectopy (Lenard Germain M.D.) EP Interpretation: yes Rate: 77 Rhythm: NSR, no PVC's, no ectopy (Lindy North DO) Last Vital Signs Date Time Temp Pulse Resp B/P (MAP) Pulse Ox O2 Delivery O2 Flow Rate FiO2 09/24/17 20:00 84 13 120/68 99 Room Air 09/24/17 19:00 97.5 97.5 Status: improved (Jessa,Lenard M.D.) Status: improved (Lindy North DO) Disposition: XFER SHT-TRM HOSP Condition: Improved Lenard Germain M.D. September 24, 2017 11:05 Ronnie Khanna M.D. September 25, 2017 05:46 Lindy North DO September 25, 2017 09:38
[2017-09-24 11:42] LABS: BASOPHILS % (AUTO) 1.3 % (0.0-2.0); EOSINOPHILS % (AUTO) 1.5 % (0.0-3.0); HEMATOCRIT 49.8 % (42.0-52.0); HEMOGLOBIN 16.2 G/DL (14.2-18.0); LYMPHOCYTES % (AUTO) 28.7 % (20.0-45.0); MEAN CORPUSCULAR VOLUME 82 FL (80-99); MONOCYTES % (AUTO) 6.3 % (1.0-10.0); NEUTROPHILS % (AUTO) 62.2 % (45.0-75.0); PLATELET COUNT 375 K/UL (150-450); RED BLOOD COUNT 6.05 M/UL (4.70-6.10); RED CELL DISTRIBUTION WIDTH 12.7 % (11.6-14.8); WHITE BLOOD COUNT 7.4 K/UL (4.8-10.8)
[2017-09-24 12:00] LABS: ANION GAP 14 mmol/L (5-15); BLOOD UREA NITROGEN 10 mg/dL (7-18); CALCIUM 10.1 MG/DL (8.5-10.1); CARBON DIOXIDE 26 MMOL/L (21-32); CHLORIDE 97 MMOL/L (98-107); CREATININE 1.2 MG/DL (0.55-1.30); POTASSIUM 4.3 MMOL/L (3.5-5.1); SODIUM 137 MMOL/L (136-145)
[2017-09-24 12:17] LABS: ALANINE AMINOTRANSFERASE 24 U/L (12-78); ALBUMIN 4.9 G/DL (3.4-5.0); ALKALINE PHOSPHATASE 68 U/L (46-116); ASPARTATE AMINO TRANSFERASE 32 U/L (15-37); BILIRUBIN,TOTAL 0.7 MG/DL (0.2-1.0)
[2017-09-24 12:24] LABS: AMMONIA 11 umol/L (11-32)
[2017-09-24] MEDS ORDERED: LORazepam Inj 2mg/ml 1ml ONE (13:05)
[2017-09-24] MEDS ORDERED: DiphenhydrAMINE 50mg/ml Inj ONE (13:05)
[2017-09-24] MEDS ORDERED: Haloperidol 5mg/ml Inj ONE (13:06)
[2017-09-24] MEDS ORDERED: LORazepam Inj 2mg/ml 1ml IV ONE (13:15)
[2017-09-24] MEDS ORDERED: LORazepam Inj 2mg/ml 1ml IM ONE (13:15)
[2017-09-24] MEDS ORDERED: Haloperidol 5mg/ml Inj IM ONE (13:15)
[2017-09-24] MEDS ORDERED: DiphenhydrAMINE 50mg/ml Inj IM ONE (13:15)
[2017-09-24] MEDS ORDERED: DiphenhydrAMINE 50mg/ml Inj IVP ONE (13:15)
[2017-09-24] MEDS ORDERED: Valproate Sodium INJ 750 MG in D5W 47.5 ML IVPB ONE (15:30)
[2017-09-25] VITALS (22 sets, daily range): BP systolic 102–150; BP diastolic 50–88
[2017-09-25] MEDS ORDERED: UNOBMED (08:30)
--- NOTE | 2017-09-25 09:40 | Diagnostic Imaging Report ---
Indication: Altered mental status Technique: Contiguous 5 mm thick transaxial imaging of the head obtained in a Siemens Sensation [address] scanner. Soft tissue and bone windows generated. Automatic Exposure Control was utilized. Total Dose length Product (DLP): 1383.[address] Dose Index Volume (CTDIvol): 70.38 mGy Comparison: 09/23/2017 Findings: The size and configuration of the cortical sulci, basal cisterns, and ventricles are within normal limits for age. There is no mass effect, midline shift, or edema identified. There is no evidence of acute hemorrhage or abnormal intra-axial or extra-axial fluid collections. The bones and soft tissues are unremarkable. Impression: No mass effect, edema or acute bleed. [facility] has communicated the preliminary results to the Emergency Department. Their findings are largely concordant with this report. The CT scanner at [facility] is accredited by the [employer] and the scans are performed using dose optimization techniques as appropriate to a performed exam including Automatic Exposure control.
--- NOTE | 2017-09-25 11:26 | Consultation ---
History of Present Illness General Date patient seen: September 25, 2017 Chief Complaint: Behavioral Complaint Present Illness HPI 36-year-old male with a history of bipolar disorder, and mmp who came in to er for agitation. the pt currently calm and apparently had a seizure. the pt was asleep however abusable. not combative and no suicidal thoughts. the pt does not endorse manic or psychotic sxs. Allergies: Coded Allergies: SULFA (SULFONAMIDE ANTIBIOTICS) (Verified Allergy, Unknown, 03/02/12) Uncoded Allergies: SULFA (Allergy, Mild, 03/02/14) Medication History Scheduled Bacitracin/Polymyxin B Sulfate (Bacitracin-Polymyxin Ointment), 1 APPLIC TP BID Clonazepam* (Klonopin*), 0.5 MG ORAL HS Divalproex Sodium (Depakote), 500 MG PO BID, (Reported) Gabapentin (Neurontin), 300 MG ORAL BEDTIME, (Reported) Miscellaneous Medications Unable to Obtain Medications (Unable To Obtain Meds), (Reported) Patient History Limited by: medical condition History Provided By: Patient, Medical Record, PMD Healthcare decision maker Resuscitation status Advanced Directive on File Past Medical/Surgical History Past Medical/Surgical History: (1) Epileptic seizure, generalized (2) Epileptic seizure, generalized (3) Valproic acid toxicity (4) chronic seizure disorder, noncompiant (5) persistant unresponsiveness 2/2 toxic encephalopathy. (6) blunt head trauma (7) Depression (8) Hyperammonemia (9) Malingering (10) Seizure disorder (11) Suicidal ideation (12) Acute encephalopathy (13) Behavioral disorder Review of Systems Psychiatric: Reports: prior hx, anxiety, depressed feelings Physical Exam General Appearance: WD/WN, no apparent distress, alert Neurologic: oriented x 3, responsive, depressed affect Last 24 Hour Vital Signs Date Time Temp Pulse Resp B/P (MAP) Pulse Ox O2 Delivery O2 Flow Rate FiO2 09/25/17 09:51 69 14 98 Room Air 09/25/17 09:36 74 16 97 Room Air 09/25/17 09:21 73 16 96 Room Air 09/25/17 09:06 98.3 72 14 97 Room Air 09/25/17 09:06 98.3 72 14 113/69 97 Room Air 98.3 09/25/17 08:51 70 14 97 Room Air 09/25/17 08:36 70 18 96 Room Air 09/25/17 08:21 76 15 98 Room Air 09/25/17 08:06 98.3 77 15 98 Room Air 09/25/17 07:51 76 15 96 Room Air 09/25/17 07:36 81 14 98 Room Air 09/25/17 07:21 98.0 85 16 136/68 97 Room Air 98.0 09/25/17 07:21 98.1 85 16 97 Room Air 09/25/17 07:06 97 12 97 Room Air 09/25/17 07:06 96 12 121/70 97 Room Air 09/25/17 06:51 86 14 96 Room Air 09/25/17 06:51 86 14 132/81 96 Room Air 09/25/17 06:36 97.9 95 14 100 Room Air 09/25/17 06:36 95 14 132/86 100 Room Air 09/25/17 06:21 97.9 90 14 96 Room Air 09/25/17 06:21 97.9 90 14 150/78 96 Room Air 97.9 09/25/17 06:06 97.9 92 14 98 Room Air 09/25/17 06:06 97.9 92 14 124/50 98 Room Air 97.9 09/25/17 05:18 97.9 66 12 113/58 99 Room Air 97.9 09/25/17 03:03 97.9 75 13 102/53 100 Room Air 97.9 09/25/17 00:18 69 13 134/86 99 Room Air 09/24/17 22:35 66 15 111/66 99 Room Air 09/24/17 21:00 98.1 76 12 99 Room Air 09/24/17 21:00 98.1 76 12 116/63 99 Room Air 98.1 09/24/17 20:45 98.1 75 14 113/64 99 Room Air 98.1 09/24/17 20:45 98.1 75 14 99 Room Air 09/24/17 20:30 98.1 79 15 108/63 99 Room Air 98.1 09/24/17 20:30 98.1 75 15 99 Room Air 09/24/17 20:15 98.1 75 18 99 Room Air 09/24/17 20:15 98.1 75 18 110/62 99 Room Air 98.1 09/24/17 20:00 84 13 120/68 99 Room Air 09/24/17 20:00 84 13 99 Room Air 09/24/17 19:45 77 14 139/67 99 Room Air 09/24/17 19:45 77 14 99 Room Air 09/24/17 19:30 79 14 116/59 98 Room Air 09/24/17 19:30 79 14 98 Room Air 09/24/17 19:15 71 14 99 Room Air 09/24/17 19:15 71 14 119/66 99 Room Air 09/24/17 19:00 97.5 74 13 119/66 99 Room Air 97.5 09/24/17 19:00 97.5 75 15 100 Room Air 09/24/17 18:45 97.5 75 15 100 Room Air 09/24/17 18:30 97.5 75 15 100 Room Air 09/24/17 18:15 97.5 75 15 100 Room Air 09/24/17 18:00 97.8 78 15 127/58 99 Room Air 97.8 09/24/17 18:00 97.5 82 15 100 Room Air 09/24/17 17:45 97.5 82 15 100 Room Air 09/24/17 17:30 97.5 82 15 100 Room Air 09/24/17 17:15 97.5 82 15 100 Room Air 09/24/17 17:00 97.5 80 13 100 Room Air 09/24/17 16:45 97.5 80 13 100 Room Air 09/24/17 16:30 97.5 80 13 100 Room Air 09/24/17 16:15 97.5 80 13 100 Room Air 09/24/17 16:00 98.0 76 15 100 Room Air 09/24/17 15:45 98.0 76 15 100 Room Air 09/24/17 15:30 98.0 76 15 100 Room Air 09/24/17 15:15 98.0 76 15 100 Room Air 09/24/17 15:00 98.0 74 15 100 Room Air 09/24/17 15:00 98.5 76 15 109/59 95 Room Air 98.5 09/24/17 14:45 98.0 74 15 100 Room Air 09/24/17 14:30 98.0 74 15 100 Room Air 09/24/17 14:15 97.5 75 15 100 Room Air 09/24/17 14:00 98.0 74 15 100 Room Air 09/24/17 13:45 98.0 74 15 100 Room Air 09/24/17 13:30 98.0 74 15 100 Room Air 09/24/17 13:15 98.0 74 15 100 Room Air 09/24/17 13:00 98.0 79 18 129/58 100 Room Air 98.0 Intake and Output 09/24/17 09/25/17 19:00 07:00 Intake Total 0 ml 1000 ml Balance 0 ml 1000 ml Intake Oral 0 ml IV Total 1000 ml Laboratory Tests Test 09/24/17 11:27 Ammonia 11 umol/L (11-32) Valproic Acid (Depakene) Level 28 MCG/ML (50-100) L Height (Feet): 5 Height (Inches): 7.00 Weight (Pounds): 170 Medications Current Medications Medications (Trade) Dose Ordered Sig/Janet Route PRN Reason Start Time Stop Time Status Last Admin Dose Admin Sodium Chloride 1,000 ml @ 300 mls/hr Q3H20M IV 09/24/17 11:00 10/24/17 10:59 09/24/17 18:05 Assessment/Plan Status: stable Assessment/Plan Bipolar d/o not a danger to self or others -the pt does not meet the criteria for hold or inpatient psych Courtney Ashraf M.D. September 25, 2017 11:26
--- NOTE | 2017-10-03 12:46 | Cardiology Report ---
APPROVED REPORT EKG Measurement Heart [id number] Normal sinus rhythm Right bundle branch block Abnormal ECG
== END 2017-09-25 16:06 | disposition home or self-care (01) ==
LOC: EDBD 10:58 → EMR 11:51 → CANBEDREQ 09-25 15:57 → EMR 09-25 16:06
DX: F31.9 Bipolar disorder, unspecified (principal); G40.909 Epilepsy, unspecified, not intractable, without status epilepticus
CPT/HCPCS: 36415; 70450; 80053; 80164; 80307; 80329; 82140; 85025; 93005; 96360; 96365; 96372; 96374; 96375; 99285; J1200; J1630

== ENCOUNTER 2017-10-14 20:06 | Emergency (ER) | payer MEDICAID ==
[~2017-10-14] VITALS: Ht 182.9 cm; Wt 106.6 kg
[~2017-10-14 20:06] MED LIST changes: +UNOBMED
[2017-10-14 20:15] VITALS: BP 118/82
--- NOTE | 2017-10-14 20:17 | Emergency Room Report ---
History of Present Illness General Chief Complaint: Seizure Source: EMS Present Illness HPI Patient presents by paramedics for report of seizure disorder Patient was reported to be headache, less than home visiting family When he was seen to have seizure activity Upon arrival patient is postictal Responsive to physical stimuli Nonverbal Patient has had multiple visits to the emergency room with similar complaints This medical record number and V number do not including all of the visits Patient has been extremely aggressive with staff previously Also noncompliant with medications Patient has also been visualized having pseudoseizures Allergies: Coded Allergies: SULFA (SULFONAMIDE ANTIBIOTICS) (Verified Allergy, Unknown, 03/02/12) Uncoded Allergies: SULFA (Allergy, Mild, 03/02/14) Patient History Limited by: medical condition Past Medical History: see triage record Pertinent Family History: unable to obtain Reviewed Nursing Documentation: PMH: Agreed; PSxH: Agreed Nursing Documentation-PMH Past Medical History: No History, Except For Hx Cardiac Problems: No Hx Diabetes: Yes Hx Cancer: No Hx Gastrointestinal Problems: No Hx Neurological Problems: Yes Hx Seizures: Yes Hx Epilepsy: Yes Review of Systems All Other Systems: limited - Other than the ones mentioned in the history of present illness all others are reviewed however they do stay limited due to the patient's mental status Physical Exam Vital Signs Date Time Temp Pulse Resp B/P (MAP) Pulse Ox O2 Delivery O2 Flow Rate FiO2 10/14/17 19:55 98.0 116 18 132/86 99 Room Air 98.1 Sp02 EP Interpretation: reviewed, normal General Appearance: no apparent distress Head: normocephalic, atraumatic Eyes: bilateral eye PERRL ENT: normal pharynx, no angioedema Neck: supple Respiratory: lungs clear, no respiratory distress, no retraction Cardiovascular #1: regular rate, rhythm Gastrointestinal: non tender, soft Musculoskeletal: other - Patient postictal and not following commands however, withdraws from visible stimuli in upper extremity Neurologic: responsive, other - As above Skin: normal color, no rash Lymphatic: no adenopathy Medical Decision Making ER Course Patient has baseline blood work initiated IV hydration Previous medication is reviewed from previous medical records and Sher also provided IV Rhythm Strip Diag. Results EP Interpretation: yes Rate: 68 Rhythm: NSR, no PVC's, no ectopy Last Vital Signs Date Time Temp Pulse Resp B/P (MAP) Pulse Ox O2 Delivery O2 Flow Rate FiO2 10/14/17 19:55 98.0 116 18 132/86 99 Room Air 98.1 Signed Out To: Dr jenkins for f/u labs and dispo Scripts Divalproex Sodium (Depakote) 500 Mg Tabec 500 MG PO BID, #14 TAB Prov: Cameron Jenkins MD 10/15/17 Lindy North DO Oct 14, 2017 20:17
[2017-10-14] MEDS ORDERED: levETIRAcetam 500mg/NS100ml 100 ML IVPB ONE (20:30)
[2017-10-14 20:34] LABS: BASOPHILS % (AUTO) 1.8 % (0.0-2.0); EOSINOPHILS % (AUTO) 2.2 % (0.0-3.0); HEMATOCRIT 42.3 % (42.0-52.0); HEMOGLOBIN 13.9 G/DL (14.2-18.0); LYMPHOCYTES % (AUTO) 32.4 % (20.0-45.0); MEAN CORPUSCULAR VOLUME 83 FL (80-99); MONOCYTES % (AUTO) 7.4 % (1.0-10.0); NEUTROPHILS % (AUTO) 56.2 % (45.0-75.0); PLATELET COUNT 404 K/UL (150-450); RED BLOOD COUNT 5.09 M/UL (4.70-6.10); RED CELL DISTRIBUTION WIDTH 13.3 % (11.6-14.8); WHITE BLOOD COUNT 8.9 K/UL (4.8-10.8)
[2017-10-14 21:15] VITALS: BP 112/71
[2017-10-14 21:42] LABS: ALANINE AMINOTRANSFERASE 11 U/L (12-78); ALBUMIN 2.3 G/DL (3.4-5.0); ALKALINE PHOSPHATASE 44 U/L (46-116); ANION GAP 18 mmol/L (5-15); ASPARTATE AMINO TRANSFERASE 9 U/L (15-37); BILIRUBIN,TOTAL 0.1 MG/DL (0.2-1.0); BLOOD UREA NITROGEN 5 mg/dL (7-18); CARBON DIOXIDE 15 MMOL/L (21-32); CHLORIDE 114 MMOL/L (98-107); CREATININE 1.1 MG/DL (0.55-1.30); SODIUM 147 MMOL/L (136-145)
[2017-10-14 22:07] LABS: POTASSIUM 2.3 MMOL/L (3.5-5.1)
[2017-10-14 22:08] LABS: CALCIUM 5.8 MG/DL (8.5-10.1)
[2017-10-14 22:15] VITALS: BP 127/82
[2017-10-14 23:15] VITALS: BP 110/73
[2017-10-15] VITALS (7 sets, daily range): BP systolic 97–135; BP diastolic 51–89
[2017-10-15 02:25] LABS: ANION GAP 7 mmol/L (5-15); BLOOD UREA NITROGEN 6 mg/dL (7-18); CALCIUM 8.3 MG/DL (8.5-10.1); CARBON DIOXIDE 23 MMOL/L (21-32); CHLORIDE 108 MMOL/L (98-107); CREATININE 1.2 MG/DL (0.55-1.30); POTASSIUM 5.1 MMOL/L (3.5-5.1); SODIUM 137 MMOL/L (136-145)
[2017-10-15 02:30] LABS: ALANINE AMINOTRANSFERASE 20 U/L (12-78); ALBUMIN 3.3 G/DL (3.4-5.0); ALBUMIN/GLOBULIN RATIO 0.9 (1.0-2.7); ALKALINE PHOSPHATASE 59 U/L (46-116); ASPARTATE AMINO TRANSFERASE 15 U/L (15-37); BILIRUBIN,TOTAL 0.2 MG/DL (0.2-1.0)
[2017-10-15] MEDS ORDERED: Valproate Sodium INJ 500 MG in D5W 55 ML IVPB ONE (02:45)
[2017-10-15] MEDS ORDERED: DEPAKOTE500 MG PO (05:49)
== END 2017-10-15 05:50 | disposition home or self-care (01) ==
LOC: EDBD 20:06 → EMR 20:38
DX: G40.909 Epilepsy, unspecified, not intractable, without status epilepticus (principal)
CPT/HCPCS: 36415; 80053; 80164; 85025; 96360; 96361; 96365; 96366; 96367; 96374; 99283; J1953; J3480; J8499

== ENCOUNTER 2018-08-11 14:59 | Inpatient (IN) | payer MEDICAID ==
[~2018-08-11] VITALS: Ht 177.8 cm; Wt 103.9 kg
[2018-08-11] MEDS ORDERED: KEPPRA500 M4 ORAL (15:09)
--- NOTE | 2018-08-11 15:11 | Emergency Room Report ---
History of Present Illness General Chief Complaint: Seizure Source: Patient Present Illness HPI Patient presents with reports of seizure activity Patient has long-standing history of seizure disorder reports that he has been noncompliant with his Depakote and Keppra as he was not able to fill his medications he reports that he has not taken his medications'for a while' Could not specify the exact date Denies any chest pain or shortness of breath denies any vomiting or diarrhea Patient has previous trauma to the mid forehead and scalp area Denies any focal weakness Allergies: Coded Allergies: SULFA (SULFONAMIDE ANTIBIOTICS) (Verified Allergy, Unknown, 03/02/12) Uncoded Allergies: SULFA (Allergy, Mild, 03/02/14) Patient History Past Medical History: see triage record Pertinent Family History: none Reviewed Nursing Documentation: PMH: Agreed; PSxH: Agreed Nursing Documentation-PMH Hx Cardiac Problems: No Hx Diabetes: Yes Hx Cancer: No Hx Gastrointestinal Problems: No Hx Neurological Problems: Yes Hx Seizures: Yes Hx Epilepsy: Yes Review of Systems All Other Systems: negative except mentioned in HPI Physical Exam Vital Signs Date Time Temp Pulse Resp B/P (MAP) Pulse Ox O2 Delivery O2 Flow Rate FiO2 08/11/18 15:03 99.0 93 14 114/72 100 Room Air Sp02 EP Interpretation: reviewed, normal General Appearance: no apparent distress Head: other - Cephalo-megaly Eyes: bilateral eye PERRL ENT: normal pharynx Neck: full range of motion, supple Respiratory: chest non-tender, lungs clear, no retraction, no accessory muscle use Cardiovascular #1: regular rate, rhythm Gastrointestinal: non tender, soft Musculoskeletal: normal inspection, back normal Neurologic: alert, oriented x3, responsive Skin: other - Appearance of impetigo on the scalp area, previously healed scab formation midline Lymphatic: no adenopathy Procedures Critical Care Time Critical Care Time 50 minutes for multiple re-evaluations, multiple seizure activities requiring repeat evaluations and neurological exams not including any procedural time Medical Decision Making Diagnostic Impression: Primary Impression: Epileptic seizure, generalized Additional Impressions: Seizure disorder Acute encephalopathy ER Course Multiple differentials considered including but not limited to neurological, neurosurgical, infectious pathology Patient is awake and alert in between seizures however did have 3 different seizure activity is here requiring acute intervention given his poor outpatient prognosis and poor follow-up patient was admitted for further care , Labs Test 08/11/18 15:15 08/11/18 15:25 08/12/18 07:44 08/12/18 08:16 White Blood Count 10.3 K/UL (4.8-10.8) Red Blood Count 4.82 M/UL (4.70-6.10) Hemoglobin 13.2 G/DL (14.2-18.0) Hematocrit 40.3 % (42.0-52.0) Mean Corpuscular Volume 84 FL (80-99) Mean Corpuscular Hemoglobin 27.3 PG (27.0-31.0) Mean Corpuscular Hemoglobin Concent 32.6 G/DL (32.0-36.0) Red Cell Distribution Width 14.4 % (11.6-14.8) Platelet Count 212 K/UL (150-450) Mean Platelet Volume 7.5 FL (6.5-10.1) Neutrophils (%) (Auto) 68.5 % (45.0-75.0) Lymphocytes (%) (Auto) 23.1 % (20.0-45.0) Monocytes (%) (Auto) 5.0 % (1.0-10.0) Eosinophils (%) (Auto) 2.2 % (0.0-3.0) Basophils (%) (Auto) 1.2 % (0.0-2.0) Sodium Level 139 MMOL/L (136-145) 142 MMOL/L (136-145) Potassium Level 3.5 MMOL/L (3.5-5.1) 3.5 MMOL/L (3.5-5.1) Chloride Level 101 MMOL/L (98-107) 103 MMOL/L (98-107) Carbon Dioxide Level 29 MMOL/L (21-32) 30 MMOL/L (21-32) Anion Gap 9 mmol/L (5-15) 9 mmol/L (5-15) Blood Urea Nitrogen 16 mg/dL (7-18) 13 mg/dL (7-18) Creatinine 1.2 MG/DL (0.55-1.30) 1.0 MG/DL (0.55-1.30) Estimat Glomerular Filtration Rate > 60 mL/min (>60) > 60 mL/min (>60) Glucose Level 87 MG/DL (74-106) 84 MG/DL (74-106) Calcium Level 9.6 MG/DL (8.5-10.1) 8.6 MG/DL (8.5-10.1) Hemoglobin A1c 6.0 % (4.3-6.0) Uric Acid 6.5 MG/DL (2.6-7.2) Phosphorus Level 4.7 MG/DL (2.5-4.9) Magnesium Level 2.3 MG/DL (1.8-2.4) Total Bilirubin 0.4 MG/DL (0.2-1.0) Aspartate Amino Transf (AST/SGOT) 17 U/L (15-37) Alanine Aminotransferase (ALT/SGPT) 28 U/L (12-78) Alkaline Phosphatase 52 U/L (46-116) C-Reactive Protein, Quantitative 2.3 mg/dL (0.00-0.90) Total Protein 6.8 G/DL (6.4-8.2) Albumin 3.4 G/DL (3.4-5.0) Globulin 3.4 g/dL Albumin/Globulin Ratio 1.0 (1.0-2.7) Triglycerides Level 109 MG/DL (30-150) Cholesterol Level 118 MG/DL (< 200) LDL Cholesterol 66 mg/dL (<100) HDL Cholesterol 33 MG/DL (40-60) Cholesterol/HDL Ratio 3.6 (3.3-4.4) Valproic Acid (Depakene) Level 18 MCG/ML (50-100) Urine Color Yellow Urine Appearance Clear Urine pH 6 (4.5-8.0) Urine Specific [place] 1.015 (1.005-1.035) Urine Protein Negative (NEGATIVE) Urine Glucose (UA) Negative (NEGATIVE) Urine Ketones 1+ (NEGATIVE) Urine Blood Negative (NEGATIVE) Urine Nitrite Negative (NEGATIVE) Urine Bilirubin Negative (NEGATIVE) Urine Urobilinogen 1 MG/DL (0.0-1.0) Urine Leukocyte Esterase 1+ (NEGATIVE) Urine RBC 0-2 /HPF (0 - 0) Urine WBC 2-4 /HPF (0 - 0) Urine Squamous Epithelial Cells Occasional /LPF Urine Bacteria Few /HPF (NONE) Rhythm Strip Diag. Results EP Interpretation: yes Rate: 77 Rhythm: NSR, no PVC's, no ectopy CT/MRI/US Diagnostic Results CT/MRI/US Diagnostic Results : Impression CT headIMPRESSION: Limited exam as above. No evidence of acute intracranial hemorrhage, mass effect or cortical edema. MRI may be obtained for more sensitive evaluation as clinically indicated. Mild paranasal sinus disease. Questionable soft tissue swelling in the right frontoparietal region although this may be artifactual related to suboptimal positioning. Correlation with physical exam recommended. Last Vital Signs Date Time Temp Pulse Resp B/P (MAP) Pulse Ox O2 Delivery O2 Flow Rate FiO2 08/11/18 15:03 99.0 93 14 114/72 100 Room Air Status: improved Disposition: ADMITTED INPATIENT Condition: Serious Lindy North DO Aug 11, 2018 15:11
[2018-08-11] MEDS ORDERED: levETIRAcetam 500mg/NS100ml 100 ML IVPB ONE (15:15)
[2018-08-11] MEDS ORDERED: Depakote 500mg tab ORAL ONE (15:15)
[2018-08-11 15:37] VITALS: BP 114/72
[2018-08-11 15:45] LABS: BASOPHILS % (AUTO) 1.2 % (0.0-2.0); EOSINOPHILS % (AUTO) 2.2 % (0.0-3.0); HEMATOCRIT 40.3 % (42.0-52.0); HEMOGLOBIN 13.2 G/DL (14.2-18.0); LYMPHOCYTES % (AUTO) 23.1 % (20.0-45.0); MEAN CORPUSCULAR VOLUME 84 FL (80-99); NEUTROPHILS % (AUTO) 68.5 % (45.0-75.0); PLATELET COUNT 212 K/UL (150-450); RED BLOOD COUNT 4.82 M/UL (4.70-6.10); RED CELL DISTRIBUTION WIDTH 14.4 % (11.6-14.8); WHITE BLOOD COUNT 10.3 K/UL (4.8-10.8)
[2018-08-11 16:11] LABS: ANION GAP 9 mmol/L (5-15); BLOOD UREA NITROGEN 16 mg/dL (7-18); CALCIUM 9.6 MG/DL (8.5-10.1); CARBON DIOXIDE 29 MMOL/L (21-32); CHLORIDE 101 MMOL/L (98-107); CREATININE 1.2 MG/DL (0.55-1.30); POTASSIUM 3.5 MMOL/L (3.5-5.1); SODIUM 139 MMOL/L (136-145)
[2018-08-11 17:39] VITALS: BP 108/52
[2018-08-11] MEDS ORDERED: LORazepam Inj 2mg/ml 1ml IV ONE (18:00)
[2018-08-11 20:10] VITALS: BP 108/52
[2018-08-11 20:55] VITALS: BP 122/69
[2018-08-11] MEDS ORDERED: Acetaminophen 500mg (ES) tab ORAL PRN (21:15)
[2018-08-11] MEDS: LORazepam Inj 2mg/ml 1ml IV PRN (23:11)
[2018-08-12] VITALS: BP 104/58
[2018-08-12] MEDS: LORazepam Inj 2mg/ml 1ml IV PRN ×2 (01:17→04:56)
[2018-08-12 04:00] VITALS: BP 117/53
[2018-08-12] MEDS ORDERED: D5 1/2NS 1,000 ML IV SCH (06:45)
[2018-08-12 08:00] VITALS: BP 96/59
[2018-08-12 08:24] LABS: ANION GAP 9 mmol/L (5-15); BLOOD UREA NITROGEN 13 mg/dL (7-18); CALCIUM 8.6 MG/DL (8.5-10.1); CARBON DIOXIDE 30 MMOL/L (21-32); CHLORIDE 103 MMOL/L (98-107); POTASSIUM 3.5 MMOL/L (3.5-5.1); SODIUM 142 MMOL/L (136-145)
--- NOTE | 2018-08-12 08:26 | Consultation ---
Consult Note Consult Note asked to eval by Dr jenkins for consult Int Med. Fluid Management Patient presents with reports of seizure activity Patient has long-standing history of seizure disorder reports that he has been noncompliant with his Depakote and Keppra as he was not able to fill his medications he reports that he has not taken his medications'for a while' Could not specify the exact date Denies any chest pain or shortness of breath denies any vomiting or diarrhea Patient has previous trauma to the mid forehead and scalp area Denies any focal weakness Coded Allergies: SULFA (SULFONAMIDE ANTIBIOTICS) (Verified Allergy, Unknown, 03/02/12) SULFA (Allergy, Mild, 03/02/14) Hx Diabetes: Yes Hx Neurological Problems: Yes Hx Seizures: Yes Hx Epilepsy: Yes examined drowsy due to Ativan open eyes responds to pain moves all exts Assessment/Plan Sz long history , non compliant Obese ? DM NPO until awake IV depakote and Keppra discussed with RN check labs , mag .... Paul Malik MD Aug 12, 2018 08:26
[2018-08-12 08:30] LABS: ALANINE AMINOTRANSFERASE 28 U/L (12-78); ALBUMIN 3.4 G/DL (3.4-5.0); ALKALINE PHOSPHATASE 52 U/L (46-116); ASPARTATE AMINO TRANSFERASE 17 U/L (15-37); BILIRUBIN,TOTAL 0.4 MG/DL (0.2-1.0); CHOLESTEROL 118 MG/DL (< 200); HDL CHOLESTEROL 33 MG/DL (40-60); PHOSPHORUS 4.7 MG/DL (2.5-4.9); TRIGLYCERIDES 109 MG/DL (30-150)
[2018-08-12 08:31] LABS: APPEARANCE,URINE CLEAR; BILIRUBIN, URINE NEGATIVE (NEGATIVE); GLUCOSE, URINE (UA) NEGATIVE (NEGATIVE); KETONES,URINE 1+ (NEGATIVE); LEUKOCYTE ESTERASE ,URINE 1+ (NEGATIVE); NITRITE,URINE NEGATIVE (NEGATIVE); PH,URINE 6 (4.5-8.0); PROTEIN,URINE NEGATIVE (NEGATIVE); UROBILINOGEN,URINE 1 MG/DL (0.0-1.0)
[2018-08-12] MEDS: D5NS 1,000 ML IV SCH ×2 (08:32→17:41)
[2018-08-12 08:33] LABS: COLOR,URINE YELLOW
[2018-08-12] MEDS ORDERED: Depakote 500mg tab ORAL SCH (09:00)
--- NOTE | 2018-08-12 09:10 | Diagnostic Imaging Report ---
Indication: Seizure Technique: Continuous helical CT scanning of the head was performed without intravenous contrast material. Axial and coronal 5 mm sections were generated. Radiation dose was minimized using automated exposure control Dose: Total Dose Length Product - DLP 2868.[address] Dose Index - CTDIvol(s) 70.38,70.38 mGy. Comparison: 09/24/2017, 09/23/2017 and 05/29/2017 FINDINGS: Exam limited by suboptimal positioning and mild patient motion. This particularly degrades images through the skull base. Within these limitations: There is no acute intracranial hemorrhage, mass effect or evidence of cortical edema. There is no shift of the midline structures. Irving-white differentiation appears preserved. The ventricles, cisterns and sulci are normal for age and stable compared to the prior exam. Very mild paranasal sinus mucosal thickening. Mastoid air cells are clear. There is no acute calvarial fracture. There is questionable soft tissue swelling in the right frontoparietal region although this may be artifactual related to suboptimal positioning. IMPRESSION: Limited exam as above. No evidence of acute intracranial hemorrhage, mass effect or cortical edema. MRI may be obtained for more sensitive evaluation as clinically indicated. Mild paranasal sinus disease. Questionable soft tissue swelling in the right frontoparietal region although this may be artifactual related to suboptimal positioning. Correlation with physical exam recommended. Findings correspond with the preliminary report The CT scanner at [facility] is accredited by the [employer] and the scans are performed using protocols designed to limit radiation exposure to as low as reasonably achievable to attain images of sufficient resolution adequate for diagnostic evaluation.
[2018-08-12] MEDS ORDERED: Valproate Sodium INJ 500 MG in D5W 55 ML IVPB ONE (09:30)
[2018-08-12] MEDS: levETIRAcetam 500mg/NS100ml 100 ML IVPB SCH ×2 (10:22→20:58)
--- NOTE | 2018-08-12 10:23 | Initial Psychiatric Evaluation ---
Psychiatry Consultation Psychiatry Consultation Chief Complaint: Seizure History of Present Illness: the pt was lethargic earlier. the pt is awake now. the pt is well known to me from the [facility]. the pt has long hx of noncompliance. the pt's has not been taking his seizure medications. the pt pw waxing and waning of consciousness. He was unable to provide hx due mental condition however he pt is uncooperative at baseline. Allergies: Coded Allergies: SULFA (SULFONAMIDE ANTIBIOTICS) (Verified Allergy, Unknown, 03/02/12) Uncoded Allergies: SULFA (Allergy, Mild, 03/02/14) Past Psychiatric History: mdd no SA Medical History: obesity seizure Medication History Scheduled Bacitracin/Polymyxin B Sulfate (Bacitracin-Polymyxin Ointment), 1 APPLIC TP BID Clonazepam* (Klonopin*), 0.5 MG ORAL HS Divalproex Sodium (Depakote), 500 MG PO BID Gabapentin (Neurontin), 300 MG ORAL BEDTIME, (Reported) Levetiracetam (Keppra), 500 MG ORAL EVERY 12 HOURS, (Reported) Miscellaneous Medications Unable to Obtain Medications (Unable To Obtain Meds), (Reported) Patient History Limited by: medical condition History Provided By: Patient, Medical Record, PMD Objective Data Height (Feet): 5 Height (Inches): 10.00 Weight (Pounds): 229 Appearance: disheveled Behavior Mannerisms: poor eye contact Affect: blunted Thought Process: illogical Suicidal Ideation: not present Assessment/Plan Problem List: (1) Seizure disorder ICD Codes: G40.909 - Epilepsy, unspecified, not intractable, without status epilepticus SNOMED: 175898382 (2) Depression ICD Codes: F32.9 - Major depressive disorder, single episode, unspecified SNOMED: 06640992 Treatment Plan: zoloft 50mg po qam kepra 1000mg po bid ativan prn Diagnosis [place] I: MDD Courtney Ashraf MD Aug 12, 2018 10:23
[2018-08-12 12:00] VITALS: BP 100/43
[2018-08-12] MEDS ORDERED: D5NS 1000ml IV ONE (15:48)
[2018-08-12] MEDS ORDERED: 1/2 NS 1000ml IV ONE (15:48)
[2018-08-12 16:00] VITALS: BP 111/69
[2018-08-12 20:00] VITALS: BP 113/66
[2018-08-12] MEDS: clonazePAM 0.5mg tab ORAL SCH (20:50)
[2018-08-12] MEDS ORDERED: Valproate Sodium INJ 500 MG in D5W 55 ML IVPB SCH (21:00)
[2018-08-13] VITALS: BP 111/52
[2018-08-13] MEDS: LORazepam Inj 2mg/ml 1ml IV PRN ×3 (01:23→15:07)
[2018-08-13 04:00] VITALS: BP 97/54
[2018-08-13] MEDS: D5NS 1,000 ML IV SCH ×2 (04:22→08:37)
--- NOTE | 2018-08-13 05:30 | History and Physical Report ---
DATE OF ADMISSION: 08/11/2018 HISTORY OF PRESENT ILLNESS: The patient is here for recurrent seizures, has multiple seizures, has a history of seizures. Currently, the patient states that his medical card was lost and he could not get the seizure medications until he gets the replacement on his medical card. Comes here for recurrent seizures. The patient had multiple lacerations on the face due to fall because of his seizures. PAST MEDICAL HISTORY: Significant for multiple seizures, history of blunt head trauma, history of Depakote toxicity, noncompliance with medications, history of depression. ALLERGIES: To sulfa. MEDICATIONS: , clonidine, Depakote, gabapentin, Keppra, but unable to refill medications because according to him, he lost his insurance card FAMILY HISTORY: Noncontributory. SOCIAL HISTORY: Does have a history of smoking. No history of drug or alcohol abuse. PAST SURGICAL HISTORY: Appendectomy. REVIEW OF SYSTEMS: HEENT: Denies headaches. RESPIRATORY: Denies shortness of breath. Denies cough. CARDIOVASCULAR: Denies chest pain. GASTROINTESTINAL: Denies nausea, vomiting, or diarrhea. EXTREMITIES: Denies pain. 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 Denies diplopia. PHYSICAL EXAMINATION: VITAL SIGNS: Temperature 97.6, pulse 87, blood pressure 96/59. HEENT: PERRLA. Does have multiple lacerations on the face. NECK: Supple. GASTROINTESTINAL: Soft, nontender, and nondistended. No organomegaly. EXTREMITIES: No edema. Moves all four extremities. Reflexes equal on both sides. LABORATORY DATA: WBC of 10, hemoglobin of 13, platelets 212. Sodium 139, potassium 3.5, BUN of 16, creatinine 1.2, and glucose of 87. ASSESSMENT AND PLAN: Low potassium. Refractory seizures. I have asked Dr. Yi and Dr. Malik to see the patient for the above-mentioned diagnoses and treatment of the seizures. Lindy Alva M.D. DR: HORTENSIA JOB#: [id number] CC:
[2018-08-13] MEDS ORDERED: D5NS 1,000 ML IV SCH (07:30)
--- NOTE | 2018-08-13 07:40 | Consultation ---
History of Present Illness General Chief Complaint: Seizure Referring physician: Dr. Angeles Present Illness HPI Mariano Brock is a disabled 38 year old gentleman with a past medical history of epilepsy and recent non-compliance with medications due to social and financial reasons. He was admitted to [facility] with status epilepticus in the field, GLF and LOC. He arrived with subtherapeutic levels of Valproate and presumptively, Levetiracetam. Allergies: Coded Allergies: SULFA (SULFONAMIDE ANTIBIOTICS) (Verified Allergy, Unknown, 03/02/12) Uncoded Allergies: SULFA (Allergy, Mild, 03/02/14) Medication History Scheduled Bacitracin/Polymyxin B Sulfate (Bacitracin-Polymyxin Ointment), 1 APPLIC TP BID Clonazepam* (Klonopin*), 0.5 MG ORAL HS Divalproex Sodium (Depakote), 500 MG PO BID Gabapentin (Neurontin), 300 MG ORAL BEDTIME, (Reported) Levetiracetam (Keppra), 500 MG ORAL EVERY 12 HOURS, (Reported) Miscellaneous Medications Unable to Obtain Medications (Unable To Obtain Meds), (Reported) Patient History Healthcare decision maker Resuscitation status Full Code Advanced Directive on File Physical Exam Last 24 Hour Vital Signs Date Time Temp Pulse Resp B/P (MAP) Pulse Ox O2 Delivery O2 Flow Rate FiO2 08/13/18 04:00 98.5 82 20 97/54 (68) 96 08/13/18 04:00 89 08/13/18 00:00 88 08/13/18 00:00 99.4 84 20 111/52 (71) 94 08/12/18 21:00 Room Air 08/12/18 20:00 98.6 86 18 113/66 (82) 98 08/12/18 20:00 94 08/12/18 16:00 98 08/12/18 16:00 98.0 93 18 111/69 (83) 96 08/12/18 12:00 98.2 95 21 100/43 (62) 99 08/12/18 12:00 91 08/12/18 09:00 Room Air 08/12/18 08:00 70 08/12/18 08:00 97.6 87 21 96/59 (71) 92 Intake and Output 08/12/18 08/13/18 19:00 07:00 Intake Total 1205 ml Output Total 1200 ml Balance 5 ml Intake IV Total 1205 ml Output Urine Total 1200 ml # Voids 6 2 # Bowel Movements 1 Laboratory Tests Test 08/12/18 07:44 08/12/18 08:16 Sodium Level 142 MMOL/L (136-145) Potassium Level 3.5 MMOL/L (3.5-5.1) Chloride Level 103 MMOL/L (98-107) Carbon Dioxide Level 30 MMOL/L (21-32) Anion Gap 9 mmol/L (5-15) Blood Urea Nitrogen 13 mg/dL (7-18) Creatinine 1.0 MG/DL (0.55-1.30) Estimat Glomerular Filtration Rate > 60 mL/min (>60) Glucose Level 84 MG/DL (74-106) Hemoglobin A1c 6.0 % (4.3-6.0) Uric Acid 6.5 MG/DL (2.6-7.2) Calcium Level 8.6 MG/DL (8.5-10.1) Phosphorus Level 4.7 MG/DL (2.5-4.9) Magnesium Level 2.3 MG/DL (1.8-2.4) Total Bilirubin 0.4 MG/DL (0.2-1.0) Aspartate Amino Transf (AST/SGOT) 17 U/L (15-37) Alanine Aminotransferase (ALT/SGPT) 28 U/L (12-78) Alkaline Phosphatase 52 U/L (46-116) C-Reactive Protein, Quantitative 2.3 mg/dL (0.00-0.90) H Total Protein 6.8 G/DL (6.4-8.2) Albumin 3.4 G/DL (3.4-5.0) Globulin 3.4 g/dL Albumin/Globulin Ratio 1.0 (1.0-2.7) Triglycerides Level 109 MG/DL (30-150) Cholesterol Level 118 MG/DL (< 200) LDL Cholesterol 66 mg/dL (<100) HDL Cholesterol 33 MG/DL (40-60) L Cholesterol/HDL Ratio 3.6 (3.3-4.4) Valproic Acid (Depakene) Level 18 MCG/ML (50-100) L Urine Color Yellow Urine Appearance Clear Urine pH 6 (4.5-8.0) Urine Specific [place] 1.015 (1.005-1.035) Urine Protein Negative (NEGATIVE) Urine Glucose (UA) Negative (NEGATIVE) Urine Ketones 1+ (NEGATIVE) H Urine Blood Negative (NEGATIVE) Urine Nitrite Negative (NEGATIVE) Urine Bilirubin Negative (NEGATIVE) Urine Urobilinogen 1 MG/DL (0.0-1.0) H Urine Leukocyte Esterase 1+ (NEGATIVE) H Urine RBC 0-2 /HPF (0 - 0) H Urine WBC 2-4 /HPF (0 - 0) Urine Squamous Epithelial Cells Occasional /LPF Urine Bacteria Few /HPF (NONE) Height (Feet): 5 Height (Inches): 10.00 Weight (Pounds): 229 Medications Current Medications Medications (Trade) Dose Ordered Sig/Janet Route PRN Reason Start Time Stop Time Status Last Admin Dose Admin Acetaminophen (Tylenol) 500 mg Q4H PRN ORAL Mild Pain/Temp > 100.5 08/11/18 21:15 09/10/18 21:14 Clonazepam (KlonoPIN) 0.5 mg BEDTIME ORAL 08/12/18 21:00 08/19/18 20:59 08/12/18 20:50 Dextrose/Sodium Chloride 1,000 ml @ 70 mls/hr [id number] IV 08/13/18 07:22 09/12/18 07:21 Gabapentin (Neurontin) 300 mg BEDTIME ORAL 08/12/18 21:00 09/11/18 20:59 08/12/18 20:53 Levetiracetam 100 ml @ 400 mls/hr Q12HR IVPB 08/12/18 09:30 09/11/18 09:29 08/12/18 20:58 Lorazepam (Ativan 2mg/ml 1ml) 1 mg Q2H PRN IV For Seizures 08/11/18 21:15 08/18/18 21:14 08/13/18 04:22 Sertraline HCl (Zoloft) 50 mg DAILY ORAL 08/13/18 09:00 09/12/18 08:59 Valproate Sodium 500 mg/Dextrose 60 ml @ 60 mls/hr Q12HR IVPB 08/12/18 21:00 09/11/18 20:59 08/12/18 20:59 Assessment/Plan Problem List: (1) Hyperammonemia ICD Codes: E72.20 - Disorder of urea cycle metabolism, unspecified SNOMED: 6935112 (2) Epileptic seizure, generalized ICD Codes: G40.909 - Epilepsy, unspecified, not intractable, without status epilepticus SNOMED: 77193264 (3) chronic seizure disorder, noncompiant Assessment & Plan: All medications to be IV at this time. Checking Valproate Levels (low in ED) and Keppra Level (pending) Will increase home doses of 500mg BID of each to 1g BID each Levetiracetam/ Valproic Acid (4) persistant unresponsiveness 2/2 toxic encephalopathy. (5) Noncompliance with medications Assessment & Plan: All medications to be IV at this time. Checking Valproate Levels (low in ED) and Keppra Level (pending) Will increase home doses of 500mg BID of each to 1g BID each Levetiracetam/ Valproic Acid ICD Codes: Z91.14 - Patient's other noncompliance with medication regimen SNOMED: 282112390 (6) Seizure Assessment & Plan: All medications to be IV at this time. Checking Valproate Levels (low in ED) and Keppra Level (pending) Will increase home doses of 500mg BID of each to 1g BID each Levetiracetam/ Valproic Acid 1mg Ativan IV / NC PRN for seizure activity. ICD Codes: R56.9 - Unspecified convulsions SNOMED: 96173513 (7) Depression ICD Codes: F32.9 - Major depressive disorder, single episode, unspecified SNOMED: 60900558 (8) Acute encephalopathy ICD Codes: G93.40 - Encephalopathy, unspecified SNOMED: 0059829 Assessment: I can be reached at [phone] if you have question about any drug orders ROGER Painting Samantha N.P. Aug 13, 2018 07:40
[2018-08-13 08:00] VITALS: BP 118/66
[2018-08-13] MEDS: Sertraline 50mg tab ORAL SCH (09:00)
[2018-08-13] MEDS: levETIRAcetam 1,000mg/NS100ml 100 ML IVPB SCH ×2 (09:34→21:13)
[2018-08-13] MEDS: Valproate Sodium INJ 1,000 MG in D5W 55 ML IV SCH ×2 (09:58→21:35)
[2018-08-13 12:00] VITALS: BP 101/57
[2018-08-13 16:00] VITALS: BP 126/72
--- NOTE | 2018-08-13 16:01 | Nephrology Progress Note ---
Assessment/Plan Problem List: (1) Seizure (2) Acute encephalopathy (3) Obese (4) Hypotension Assessment Sz long history , non compliant Obese ? DM Plan NPO until awake IV depakote and Keppra, adjust dose per Neuro discussed with RN check labs , mag .... bolus albumin Subjective ROS Limited/Unobtainable: Yes Objective Objective Last 24 Hour Vital Signs Date Time Temp Pulse Resp B/P (MAP) Pulse Ox O2 Delivery O2 Flow Rate FiO2 08/13/18 12:00 78 08/13/18 12:00 97.8 79 20 101/57 (72) 97 08/13/18 09:00 Room Air 08/13/18 08:00 75 08/13/18 08:00 98.6 72 20 118/66 (83) 95 08/13/18 04:00 98.5 82 20 97/54 (68) 96 08/13/18 04:00 89 08/13/18 00:00 88 08/13/18 00:00 99.4 84 20 111/52 (71) 94 08/12/18 21:00 Room Air 08/12/18 20:00 98.6 86 18 113/66 (82) 98 08/12/18 20:00 94 08/12/18 16:00 98 08/12/18 16:00 98.0 93 18 111/69 (83) 96 Intake and Output 08/12/18 08/13/18 19:00 07:00 Intake Total 1205 ml Output Total 1200 ml Balance 5 ml IV Total 1205 ml Output Urine Total 1200 ml # Voids 6 2 # Bowel Movements 1 Laboratory Tests 08/13/18 10:15: Levetiracetam (Keppra) Level [Pending] Height (Feet): 5 Height (Inches): 10.00 Weight (Pounds): 229 General Appearance: no apparent distress, lethargic, other - continues to have seizure periodically Cardiovascular: normal rate Respiratory/Chest: decreased breath sounds Abdomen: other - obese Paul Malik MD Aug 13, 2018 16:01
[2018-08-13 20:00] VITALS: BP 121/74
[2018-08-13] MEDS: clonazePAM 0.5mg tab ORAL SCH (21:13)
--- NOTE | 2018-08-13 21:55 | General Progress Note ---
Assessment/Plan Problem List: (1) Seizure disorder ICD Codes: G40.909 - Epilepsy, unspecified, not intractable, without status epilepticus SNOMED: 812870563 (2) Epileptic seizure, generalized ICD Codes: G40.909 - Epilepsy, unspecified, not intractable, without status epilepticus SNOMED: 28635700 (3) Epileptic seizure, generalized ICD Codes: G40.909 - Epilepsy, unspecified, not intractable, without status epilepticus SNOMED: 91251485 (4) Noncompliance with medications ICD Codes: Z91.14 - Patient's other noncompliance with medication regimen SNOMED: 870038553 (5) chronic seizure disorder, noncompiant (6) Seizure ICD Codes: R56.9 - Unspecified convulsions SNOMED: 09346285 (7) persistant unresponsiveness 2/2 toxic encephalopathy. Status: progressing Assessment: had mutiple siezures so finally was able to find neurologist to see the patient which is dr brandi hickman i consulted dr rajendra ariza on the day of admission however he siad is not available since going out of town Subjective ROS Limited/Unobtainable: Yes Allergies: Coded Allergies: SULFA (SULFONAMIDE ANTIBIOTICS) (Verified Allergy, Unknown, 03/02/12) Uncoded Allergies: SULFA (Allergy, Mild, 03/02/14) Objective Last 24 Hour Vital Signs Date Time Temp Pulse Resp B/P (MAP) Pulse Ox O2 Delivery O2 Flow Rate FiO2 08/13/18 21:00 Room Air 08/13/18 20:00 86 08/13/18 20:00 98.0 86 20 121/74 (90) 99 08/13/18 16:00 81 08/13/18 16:00 98.2 85 20 126/72 (90) 100 08/13/18 12:00 78 08/13/18 12:00 97.8 79 20 101/57 (72) 97 08/13/18 09:00 Room Air 08/13/18 08:00 75 08/13/18 08:00 98.6 72 20 118/66 (83) 95 08/13/18 04:00 98.5 82 20 97/54 (68) 96 08/13/18 04:00 89 08/13/18 00:00 88 08/13/18 00:00 99.4 84 20 111/52 (71) 94 Intake and Output 08/12/18 08/13/18 19:00 07:00 Intake Total 1205 ml Output Total 1200 ml Balance 5 ml IV Total 1205 ml Output Urine Total 1200 ml # Voids 6 2 # Bowel Movements 1 Laboratory Tests 08/13/18 10:15: Levetiracetam (Keppra) Level [Pending] 08/13/18 20:30: Urine Opiates Screen Negative, Urine Barbiturates Screen Negative, Phencyclidine (PCP) Screen Negative, Urine Amphetamines Screen Negative, Urine Benzodiazepines Screen Negative, Urine Cocaine Screen Negative, Urine Marijuana (THC) Screen Negative Height (Feet): 5 Height (Inches): 10.00 Weight (Pounds): 229 Cardiovascular: normal rate Respiratory/Chest: lungs clear Lindy Alva MD Aug 13, 2018 21:55
[2018-08-14] VITALS: BP 107/73
[2018-08-14 04:00] VITALS: BP 114/71
[2018-08-14] MEDS: D5NS 1,000 ML IV SCH ×2 (05:11→11:33)
[2018-08-14 05:15] LABS: BASOPHILS % (AUTO) 1.1 % (0.0-2.0); EOSINOPHILS % (AUTO) 3.1 % (0.0-3.0); HEMATOCRIT 35.8 % (42.0-52.0); HEMOGLOBIN 12.1 G/DL (14.2-18.0); LYMPHOCYTES % (AUTO) 32.5 % (20.0-45.0); MEAN CORPUSCULAR VOLUME 83 FL (80-99); NEUTROPHILS % (AUTO) 56.3 % (45.0-75.0); PLATELET COUNT 308 K/UL (150-450); RED BLOOD COUNT 4.33 M/UL (4.70-6.10); RED CELL DISTRIBUTION WIDTH 14.3 % (11.6-14.8); WHITE BLOOD COUNT 7.2 K/UL (4.8-10.8)
[2018-08-14 05:21] LABS: PHOSPHORUS 3.7 MG/DL (2.5-4.9)
[2018-08-14 05:23] LABS: ALANINE AMINOTRANSFERASE 28 U/L (12-78); ALBUMIN 3.6 G/DL (3.4-5.0); ALBUMIN/GLOBULIN RATIO 1.1 (1.0-2.7); ALKALINE PHOSPHATASE 52 U/L (46-116); ANION GAP 12 mmol/L (5-15); ASPARTATE AMINO TRANSFERASE 13 U/L (15-37); BILIRUBIN,TOTAL 0.3 MG/DL (0.2-1.0); BLOOD UREA NITROGEN 7 mg/dL (7-18); CARBON DIOXIDE 26 MMOL/L (21-32); CHLORIDE 105 MMOL/L (98-107); CREATININE 1.1 MG/DL (0.55-1.30); POTASSIUM 3.9 MMOL/L (3.5-5.1); SODIUM 142 MMOL/L (136-145)
[2018-08-14 07:56] VITALS: BP 123/72
[2018-08-14] MEDS: levETIRAcetam 1,000mg/NS100ml 100 ML IVPB SCH ×2 (08:10→20:33)
[2018-08-14] MEDS: Sertraline 50mg tab ORAL SCH (08:10)
[2018-08-14] MEDS: Valproate Sodium INJ 1,000 MG in D5W 55 ML IV SCH ×2 (08:51→20:56)
--- NOTE | 2018-08-14 11:01 | Neurology Progress Note ---
Interim History Interim History ROS Limited/Unobtainable: Yes Objective Physical Exam Last Vital Signs Date Time Temp Pulse Resp B/P (MAP) Pulse Ox O2 Delivery O2 Flow Rate FiO2 08/14/18 08:29 Room Air 08/14/18 07:56 98.8 77 20 123/72 (89) 96 08/11/18 20:10 99 Laboratory Tests Test 08/13/18 20:30 08/14/18 04:52 Urine Opiates Screen Negative (NEGATIVE) Urine Barbiturates Screen Negative (NEGATIVE) Phencyclidine (PCP) Screen Negative (NEGATIVE) Urine Amphetamines Screen Negative (NEGATIVE) Urine Benzodiazepines Screen Negative (NEGATIVE) Urine Cocaine Screen Negative (NEGATIVE) Urine Marijuana (THC) Screen Negative (NEGATIVE) White Blood Count 7.2 K/UL (4.8-10.8) Red Blood Count 4.33 M/UL (4.70-6.10) L Hemoglobin 12.1 G/DL (14.2-18.0) L Hematocrit 35.8 % (42.0-52.0) L Mean Corpuscular Volume 83 FL (80-99) Mean Corpuscular Hemoglobin 27.9 PG (27.0-31.0) Mean Corpuscular Hemoglobin Concent 33.6 G/DL (32.0-36.0) Red Cell Distribution Width 14.3 % (11.6-14.8) Platelet Count 308 K/UL (150-450) Mean Platelet Volume 6.5 FL (6.5-10.1) Neutrophils (%) (Auto) 56.3 % (45.0-75.0) Lymphocytes (%) (Auto) 32.5 % (20.0-45.0) Monocytes (%) (Auto) 7.0 % (1.0-10.0) Eosinophils (%) (Auto) 3.1 % (0.0-3.0) H Basophils (%) (Auto) 1.1 % (0.0-2.0) Sodium Level 142 MMOL/L (136-145) Potassium Level 3.9 MMOL/L (3.5-5.1) Chloride Level 105 MMOL/L (98-107) Carbon Dioxide Level 26 MMOL/L (21-32) Anion Gap 12 mmol/L (5-15) Blood Urea Nitrogen 7 mg/dL (7-18) Creatinine 1.1 MG/DL (0.55-1.30) Estimat Glomerular Filtration Rate > 60 mL/min (>60) Glucose Level 96 MG/DL (74-106) Uric Acid 5.6 MG/DL (2.6-7.2) Calcium Level 9.0 MG/DL (8.5-10.1) Phosphorus Level 3.7 MG/DL (2.5-4.9) Magnesium Level 2.2 MG/DL (1.8-2.4) Total Bilirubin 0.3 MG/DL (0.2-1.0) Gamma Glutamyl Transpeptidase 28 U/L (5-85) Aspartate Amino Transf (AST/SGOT) 13 U/L (15-37) L Alanine Aminotransferase (ALT/SGPT) 28 U/L (12-78) Alkaline Phosphatase 52 U/L (46-116) Total Protein 7.0 G/DL (6.4-8.2) Albumin 3.6 G/DL (3.4-5.0) Globulin 3.4 g/dL Albumin/Globulin Ratio 1.1 (1.0-2.7) Cortisol AM Sample Pending Valproic Acid (Depakene) Level 42 MCG/ML (50-100) L Impression/Recommendations Problems: (1) Hyperammonemia (2) Epileptic seizure, generalized (3) chronic seizure disorder, noncompiant Assessment & Plan: All medications to be IV at this time. Checking Valproate Levels (low in ED) and Keppra Level (pending) Will increase home doses of 500mg BID of each to 1g BID each Levetiracetam/ Valproic Acid (4) persistant unresponsiveness 2/2 toxic encephalopathy. (5) Noncompliance with medications Assessment & Plan: All medications to be IV at this time. Checking Valproate Levels (low in ED) and Keppra Level (pending) Will increase home doses of 500mg BID of each to 1g BID each Levetiracetam/ Valproic Acid (6) Seizure Assessment & Plan: All medications to be IV at this time. Checking Valproate Levels (low in ED) and Keppra Level (pending) Will increase home doses of 500mg BID of each to 1g BID each Levetiracetam/ Valproic Acid 1mg Ativan IV / OH PRN for seizure activity. (7) Depression (8) Acute encephalopathy Status: progressing Yi Muhammad N.P. Aug 14, 2018 11:01
[2018-08-14] MEDS: Lacosamide 50mg tablet ORAL SCH ×2 (11:33→20:55)
[2018-08-14 11:43] VITALS: BP 107/67
--- NOTE | 2018-08-14 13:22 | Cardiology Report ---
APPROVED REPORT EKG Measurement Heart [id number] Normal sinus rhythm Right bundle branch block Abnormal ECG
--- NOTE | 2018-08-14 13:26 | Psych Consult Progress Note ---
Psychiatry Progress Note Psychiatry Progress Note Medications Current Medications Medications (Trade) Dose Ordered Sig/Janet Route PRN Reason Start Time Stop Time Status Last Admin Dose Admin Acetaminophen (Tylenol) 500 mg Q4H PRN ORAL Mild Pain/Temp > 100.5 08/11/18 21:15 09/10/18 21:14 Clonazepam (KlonoPIN) 0.5 mg BEDTIME ORAL 08/12/18 21:00 08/19/18 20:59 08/13/18 21:13 Dextrose/Sodium Chloride 1,000 ml @ 70 mls/hr [id number] IV 08/13/18 07:22 09/12/18 07:21 08/14/18 05:11 Gabapentin (Neurontin) 300 mg BEDTIME ORAL 08/12/18 21:00 09/11/18 20:59 08/13/18 21:13 Lacosamide (Vimpat) 25 mg Q12HR ORAL 08/14/18 11:15 09/13/18 11:14 08/14/18 11:33 Levetiracetam 100 ml @ 400 mls/hr Q12HR IVPB 08/13/18 09:00 09/12/18 08:59 08/14/18 08:10 Lorazepam (Ativan 2mg/ml 1ml) 1 mg Q2H PRN IV For Seizures 08/11/18 21:15 08/18/18 21:14 08/13/18 15:07 Sertraline HCl (Zoloft) 50 mg DAILY ORAL 08/13/18 09:00 09/12/18 08:59 08/14/18 08:10 Valproate Sodium 1000 mg/Dextrose 65 ml @ 32.5 mls/hr Q12HR IV 08/13/18 09:00 09/12/18 08:59 08/14/18 08:51 Problems: (1) Seizure disorder Status: Acute (2) Depression Allergies: Coded Allergies: SULFA (SULFONAMIDE ANTIBIOTICS) (Verified Allergy, Unknown, 03/02/12) Uncoded Allergies: SULFA (Allergy, Mild, 03/02/14) Objective Data Height (Feet): 5 Height (Inches): 10.00 Weight (Pounds): 229 General Appearance: WD/WN, no apparent distress, alert Appearance: disheveled Behavior Mannerisms: good eye contact Mental Status Exam - Affect: blunted Mental Status Exam - Mood: depressed Speech: clear Mental Status Exam - Thought P: logical Mental Status Exam - Suicidal: no plan Assessment/Plan Problem List: (1) Seizure disorder ICD Codes: G40.909 - Epilepsy, unspecified, not intractable, without status epilepticus SNOMED: 167359969 (2) Depression ICD Codes: F32.9 - Major depressive disorder, single episode, unspecified SNOMED: 26756222 Status: stable Plan: zoloft 50mg po qam ativan prn the pt maybe discharged Courtney Ashraf MD Aug 14, 2018 13:26
--- NOTE | 2018-08-14 13:47 | Nephrology Progress Note ---
Assessment/Plan Problem List: (1) Seizure (2) Acute encephalopathy (3) Obese (4) Hypotension Assessment Sz long history , non compliant Obese ? DM Plan start po IV depakote and Keppra, adjust dose per Neuro discussed with RN check labs , mag .... bolus albumin Subjective ROS Limited/Unobtainable: No Constitutional: Reports: other - awake and verbal Objective Objective Last 24 Hour Vital Signs Date Time Temp Pulse Resp B/P (MAP) Pulse Ox O2 Delivery O2 Flow Rate FiO2 08/14/18 11:43 98.4 74 20 107/67 (80) 97 08/14/18 11:42 82 08/14/18 08:29 Room Air 08/14/18 07:56 98.8 77 20 123/72 (89) 96 08/14/18 07:29 86 08/14/18 04:00 98.8 82 20 114/71 (85) 96 08/14/18 04:00 82 08/14/18 00:00 85 08/14/18 00:00 98.6 85 20 107/73 (84) 96 08/13/18 21:00 Room Air 08/13/18 20:00 86 08/13/18 20:00 98.0 86 20 121/74 (90) 99 08/13/18 16:00 81 08/13/18 16:00 98.2 85 20 126/72 (90) 100 Intake and Output 08/13/18 08/14/18 19:00 07:00 Intake Total 1605.0 ml 515 ml Output Total 1000 ml 1000 ml Balance 605.0 ml -485 ml Intake Oral 240 ml IV Total 1365.0 ml 515 ml Output Urine Total 1000 ml 1000 ml Laboratory Tests 08/13/18 20:30: Urine Opiates Screen Negative, Urine Barbiturates Screen Negative, Phencyclidine (PCP) Screen Negative, Urine Amphetamines Screen Negative, Urine Benzodiazepines Screen Negative, Urine Cocaine Screen Negative, Urine Marijuana (THC) Screen Negative 08/14/18 04:52: White Blood Count 7.2, Red Blood Count 4.33L, Hemoglobin 12.1L, Hematocrit 35.8L , Mean Corpuscular Volume 83, Mean Corpuscular Hemoglobin 27.9, Mean Corpuscular Hemoglobin Concent 33.6, Red Cell Distribution Width 14.3, Platelet Count 308, Mean Platelet Volume 6.5, Neutrophils (%) (Auto) 56.3, Lymphocytes (% ) (Auto) 32.5, Monocytes (%) (Auto) 7.0, Eosinophils (%) (Auto) 3.1H, Basophils (%) (Auto) 1.1, Sodium Level 142, Potassium Level 3.9, Chloride Level 105, Carbon Dioxide Level 26, Anion Gap 12, Blood Urea Nitrogen 7, Creatinine 1.1, Estimat Glomerular Filtration Rate > 60, Glucose Level 96, Uric Acid 5.6, Calcium Level 9.0, Phosphorus Level 3.7, Magnesium Level 2.2, Total Bilirubin 0.3, Gamma Glutamyl Transpeptidase 28, Aspartate Amino Transf (AST/SGOT) 13L, Alanine Aminotransferase (ALT/SGPT) 28, Alkaline Phosphatase 52, Total Protein 7.0, Albumin 3.6, Globulin 3.4, Albumin/Globulin Ratio 1.1, Cortisol AM Sample 6.0, Valproic Acid (Depakene) Level 42L Height (Feet): 5 Height (Inches): 10.00 Weight (Pounds): 229 General Appearance: no apparent distress, other - no more Szs Respiratory/Chest: lungs clear Abdomen: soft Paul Malik MD Aug 14, 2018 13:47
[2018-08-14 16:00] VITALS: BP 146/83
[2018-08-14] MEDS ORDERED: Tubing IV Secondary IV ONE (17:03)
[2018-08-14 20:00] VITALS: BP 102/67
--- NOTE | 2018-08-14 20:04 | General Progress Note ---
Assessment/Plan Problem List: (1) Seizure disorder ICD Codes: G40.909 - Epilepsy, unspecified, not intractable, without status epilepticus SNOMED: 020666008 (2) Epileptic seizure, generalized ICD Codes: G40.909 - Epilepsy, unspecified, not intractable, without status epilepticus SNOMED: 89537323 (3) Epileptic seizure, generalized ICD Codes: G40.909 - Epilepsy, unspecified, not intractable, without status epilepticus SNOMED: 23273078 (4) Noncompliance with medications ICD Codes: Z91.14 - Patient's other noncompliance with medication regimen SNOMED: 976495656 (5) chronic seizure disorder, noncompiant (6) Seizure ICD Codes: R56.9 - Unspecified convulsions SNOMED: 72632376 (7) persistant unresponsiveness 2/2 toxic encephalopathy. Status: progressing Assessment: s/p recurrent seizure refractory seizures afebrile seizure meds per neurologist Subjective ROS Limited/Unobtainable: Yes Allergies: Coded Allergies: SULFA (SULFONAMIDE ANTIBIOTICS) (Verified Allergy, Unknown, 03/02/12) Uncoded Allergies: SULFA (Allergy, Mild, 03/02/14) Objective Last 24 Hour Vital Signs Date Time Temp Pulse Resp B/P (MAP) Pulse Ox O2 Delivery O2 Flow Rate FiO2 08/14/18 16:00 98.4 109 20 146/83 (104) 98 08/14/18 15:36 89 08/14/18 11:43 98.4 74 20 107/67 (80) 97 08/14/18 11:42 82 08/14/18 08:29 Room Air 08/14/18 07:56 98.8 77 20 123/72 (89) 96 08/14/18 07:29 86 08/14/18 04:00 98.8 82 20 114/71 (85) 96 08/14/18 04:00 82 08/14/18 00:00 85 08/14/18 00:00 98.6 85 20 107/73 (84) 96 08/13/18 21:00 Room Air Intake and Output 08/13/18 08/14/18 19:00 07:00 Intake Total 1605.0 ml 515 ml Output Total 1000 ml 1000 ml Balance 605.0 ml -485 ml Intake Oral 240 ml IV Total 1365.0 ml 515 ml Output Urine Total 1000 ml 1000 ml Laboratory Tests 08/13/18 20:30: Urine Opiates Screen Negative, Urine Barbiturates Screen Negative, Phencyclidine (PCP) Screen Negative, Urine Amphetamines Screen Negative, Urine Benzodiazepines Screen Negative, Urine Cocaine Screen Negative, Urine Marijuana (THC) Screen Negative 08/14/18 04:52: White Blood Count 7.2, Red Blood Count 4.33L, Hemoglobin 12.1L, Hematocrit 35.8L , Mean Corpuscular Volume 83, Mean Corpuscular Hemoglobin 27.9, Mean Corpuscular Hemoglobin Concent 33.6, Red Cell Distribution Width 14.3, Platelet Count 308, Mean Platelet Volume 6.5, Neutrophils (%) (Auto) 56.3, Lymphocytes (% ) (Auto) 32.5, Monocytes (%) (Auto) 7.0, Eosinophils (%) (Auto) 3.1H, Basophils (%) (Auto) 1.1, Sodium Level 142, Potassium Level 3.9, Chloride Level 105, Carbon Dioxide Level 26, Anion Gap 12, Blood Urea Nitrogen 7, Creatinine 1.1, Estimat Glomerular Filtration Rate > 60, Glucose Level 96, Uric Acid 5.6, Calcium Level 9.0, Phosphorus Level 3.7, Magnesium Level 2.2, Total Bilirubin 0.3, Gamma Glutamyl Transpeptidase 28, Aspartate Amino Transf (AST/SGOT) 13L, Alanine Aminotransferase (ALT/SGPT) 28, Alkaline Phosphatase 52, Total Protein 7.0, Albumin 3.6, Globulin 3.4, Albumin/Globulin Ratio 1.1, Cortisol AM Sample 6.0, Valproic Acid (Depakene) Level 42L Height (Feet): 5 Height (Inches): 10.00 Weight (Pounds): 229 EENT: PERRL/EOMI Neck: supple Cardiovascular: normal rate Respiratory/Chest: lungs clear Abdomen: soft Lindy Alva MD Aug 14, 2018 20:04
[2018-08-14] MEDS: clonazePAM 0.5mg tab ORAL SCH (20:55)
[2018-08-15] VITALS: BP 147/94
[2018-08-15] MEDS: LORazepam Inj 2mg/ml 1ml IV PRN (01:21)
[2018-08-15] MEDS: D5NS 1,000 ML IV SCH ×2 (01:24→18:05)
[2018-08-15 04:00] VITALS: BP 113/64
[2018-08-15 08:00] VITALS: BP 119/76
[2018-08-15] MEDS: Sertraline 50mg tab ORAL SCH (08:04)
[2018-08-15] MEDS: Lacosamide 50mg tablet ORAL SCH ×2 (08:04→22:23)
[2018-08-15] MEDS: levETIRAcetam 1,000mg/NS100ml 100 ML IVPB SCH ×2 (08:04→22:24)
[2018-08-15] MEDS: Valproate Sodium INJ 1,000 MG in D5W 55 ML IV SCH ×2 (09:12→22:50)
[2018-08-15 11:56] VITALS: BP 115/64
--- NOTE | 2018-08-15 15:47 | Neurology Progress Note ---
Interim History Interim History ROS Limited/Unobtainable: Yes Objective Physical Exam Last Vital Signs Date Time Temp Pulse Resp B/P (MAP) Pulse Ox O2 Delivery O2 Flow Rate FiO2 08/15/18 11:56 98.3 74 19 115/64 (81) 96 08/15/18 09:00 Room Air 08/11/18 20:10 99 Impression/Recommendations Problems: (1) Hyperammonemia (2) Epileptic seizure, generalized Assessment & Plan: None since admission, but with partial seizures until yesterday. Needs social work consult/ case management to assist with MEDI/MEDI benefits and access to meds. Recommend outpatient follow up. 1g Valproate BID 1g Keppra BID 25mg Lamictal BID (3) chronic seizure disorder, noncompiant Assessment & Plan: All medications to be IV at this time. Checking Valproate Levels (low in ED) and Keppra Level (pending) Will increase home doses of 500mg BID of each to 1g BID each Levetiracetam/ Valproic Acid (4) persistant unresponsiveness 2/2 toxic encephalopathy. (5) Noncompliance with medications Assessment & Plan: All medications to be IV at this time. Checking Valproate Levels (low in ED) and Keppra Level (pending) Will increase home doses of 500mg BID of each to 1g BID each Levetiracetam/ Valproic Acid (6) Seizure Assessment & Plan: All medications to be IV at this time. Checking Valproate Levels (low in ED) and Keppra Level (pending) Will increase home doses of 500mg BID of each to 1g BID each Levetiracetam/ Valproic Acid 1mg Ativan IV / IN PRN for seizure activity. (7) Depression (8) Acute encephalopathy Assessment & Plan: Resolved Status: progressing Yi Muhammad N.P. Aug 15, 2018 15:47
[2018-08-15 15:54] VITALS: BP 108/65
--- NOTE | 2018-08-15 18:50 | Nephrology Progress Note ---
Assessment/Plan Problem List: (1) Seizure (2) Acute encephalopathy (3) Obese (4) Hypotension Assessment Sz long history , non compliant Obese ? DM Plan start po IV depakote and Keppra, adjust dose per Neuro discussed with RN check labs , mag .... bolus albumin Subjective ROS Limited/Unobtainable: No Objective Objective Last 24 Hour Vital Signs Date Time Temp Pulse Resp B/P (MAP) Pulse Ox O2 Delivery O2 Flow Rate FiO2 08/15/18 15:54 98.4 66 18 108/65 (79) 96 08/15/18 15:33 68 08/15/18 11:56 98.3 74 19 115/64 (81) 96 08/15/18 11:29 75 08/15/18 09:00 Room Air 08/15/18 08:00 97.9 85 19 119/76 (90) 96 08/15/18 07:42 58 08/15/18 04:00 69 08/15/18 04:00 98.5 69 18 113/64 (80) 97 08/15/18 00:00 99.0 89 18 147/94 (111) 97 08/15/18 00:00 89 08/14/18 21:00 Room Air 08/14/18 20:00 98.3 75 18 102/67 (79) 97 08/14/18 20:00 75 Intake and Output 08/14/18 08/15/18 19:00 07:00 Intake Total 825.0 ml 1031 ml Output Total 1450 ml 1250 ml Balance -625.0 ml -219 ml Intake Oral 590 ml 236 ml IV Total 235.0 ml 795 ml Output Urine Total 1450 ml 1250 ml # Bowel Movements 1 Height (Feet): 5 Height (Inches): 10.00 Weight (Pounds): 229 General Appearance: no apparent distress Objective no change Paul Malik MD Aug 15, 2018 18:50
[2018-08-15 20:00] VITALS: BP 118/77
--- NOTE | 2018-08-15 22:14 | General Progress Note ---
Assessment/Plan Problem List: (1) Seizure disorder ICD Codes: G40.909 - Epilepsy, unspecified, not intractable, without status epilepticus SNOMED: 738791389 (2) Epileptic seizure, generalized ICD Codes: G40.909 - Epilepsy, unspecified, not intractable, without status epilepticus SNOMED: 70249599 (3) Epileptic seizure, generalized ICD Codes: G40.909 - Epilepsy, unspecified, not intractable, without status epilepticus SNOMED: 90687575 (4) Noncompliance with medications ICD Codes: Z91.14 - Patient's other noncompliance with medication regimen SNOMED: 931873347 (5) chronic seizure disorder, noncompiant (6) Seizure ICD Codes: R56.9 - Unspecified convulsions SNOMED: 39566766 (7) persistant unresponsiveness 2/2 toxic encephalopathy. Status: progressing Assessment: decrease in number of seizures no acute events vitals stable Subjective ROS Limited/Unobtainable: Yes Allergies: Coded Allergies: SULFA (SULFONAMIDE ANTIBIOTICS) (Verified Allergy, Unknown, 03/02/12) Uncoded Allergies: SULFA (Allergy, Mild, 03/02/14) Objective Last 24 Hour Vital Signs Date Time Temp Pulse Resp B/P (MAP) Pulse Ox O2 Delivery O2 Flow Rate FiO2 08/15/18 15:54 98.4 66 18 108/65 (79) 96 08/15/18 15:33 68 08/15/18 11:56 98.3 74 19 115/64 (81) 96 08/15/18 11:29 75 08/15/18 09:00 Room Air 08/15/18 08:00 97.9 85 19 119/76 (90) 96 08/15/18 07:42 58 08/15/18 04:00 69 08/15/18 04:00 98.5 69 18 113/64 (80) 97 08/15/18 00:00 99.0 89 18 147/94 (111) 97 08/15/18 00:00 89 Intake and Output 08/14/18 08/15/18 19:00 07:00 Intake Total 825.0 ml 1031 ml Output Total 1450 ml 1250 ml Balance -625.0 ml -219 ml Intake Oral 590 ml 236 ml IV Total 235.0 ml 795 ml Output Urine Total 1450 ml 1250 ml # Bowel Movements 1 Height (Feet): 5 Height (Inches): 10.00 Weight (Pounds): 229 Neck: supple Cardiovascular: normal rate Respiratory/Chest: lungs clear Abdomen: soft Lindy Alva MD Aug 15, 2018 22:14
[2018-08-15] MEDS: clonazePAM 0.5mg tab ORAL SCH (22:23)
--- NOTE | 2018-08-15 23:40 | Psych Consult Progress Note ---
Psychiatry Progress Note Psychiatry Progress Note Medications Current Medications Medications (Trade) Dose Ordered Sig/Janet Route PRN Reason Start Time Stop Time Status Last Admin Dose Admin Acetaminophen (Tylenol) 500 mg Q4H PRN ORAL Mild Pain/Temp > 100.5 08/11/18 21:15 09/10/18 21:14 Clonazepam (KlonoPIN) 0.5 mg BEDTIME ORAL 08/12/18 21:00 08/19/18 20:59 08/15/18 22:23 Gabapentin (Neurontin) 300 mg BEDTIME ORAL 08/12/18 21:00 09/11/18 20:59 08/15/18 22:23 Lacosamide (Vimpat) 25 mg Q12HR ORAL 08/14/18 11:15 09/13/18 11:14 08/15/18 22:23 Levetiracetam 100 ml @ 400 mls/hr Q12HR IVPB 08/13/18 09:00 09/12/18 08:59 08/15/18 22:24 Lorazepam (Ativan 2mg/ml 1ml) 1 mg Q2H PRN IV For Seizures 08/11/18 21:15 08/18/18 21:14 08/15/18 01:21 Sertraline HCl (Zoloft) 50 mg DAILY ORAL 08/13/18 09:00 09/12/18 08:59 08/15/18 08:04 Valproate Sodium 1000 mg/Dextrose 65 ml @ 32.5 mls/hr Q12HR IV 08/13/18 09:00 09/12/18 08:59 08/15/18 22:50 Problems: (1) Seizure disorder Status: Acute (2) Depression Neurological/Psychiatric: Reports: anxiety, depressed, emotional problems Allergies: Coded Allergies: SULFA (SULFONAMIDE ANTIBIOTICS) (Verified Allergy, Unknown, 03/02/12) Uncoded Allergies: SULFA (Allergy, Mild, 03/02/14) Objective Data Height (Feet): 5 Height (Inches): 10.00 Weight (Pounds): 229 General Appearance: WD/WN, no apparent distress, alert Appearance: well groomed Behavior Mannerisms: good eye contact Mental Status Exam - Mood: depressed Mental Status Exam - Suicidal: not present Assessment/Plan Problem List: (1) Seizure disorder ICD Codes: G40.909 - Epilepsy, unspecified, not intractable, without status epilepticus SNOMED: 319600244 (2) Depression ICD Codes: F32.9 - Major depressive disorder, single episode, unspecified SNOMED: 68358078 Status: stable Courtney Ashraf MD Aug 15, 2018 23:40
[2018-08-16] VITALS: BP 113/61
[2018-08-16] MEDS: LORazepam Inj 2mg/ml 1ml IV PRN (01:06)
[2018-08-16 04:00] VITALS: BP 113/58
[2018-08-16 07:05] LABS: ALANINE AMINOTRANSFERASE 30 U/L (12-78); ALBUMIN 3.9 G/DL (3.4-5.0); ALBUMIN/GLOBULIN RATIO 1.1 (1.0-2.7); ALKALINE PHOSPHATASE 57 U/L (46-116); ANION GAP 8 mmol/L (5-15); ASPARTATE AMINO TRANSFERASE 27 U/L (15-37); BILIRUBIN,TOTAL 0.4 MG/DL (0.2-1.0); BLOOD UREA NITROGEN 6 mg/dL (7-18); CALCIUM 9.2 MG/DL (8.5-10.1); CARBON DIOXIDE 29 MMOL/L (21-32); CHLORIDE 103 MMOL/L (98-107); CREATININE 1.1 MG/DL (0.55-1.30); POTASSIUM 5.2 MMOL/L (3.5-5.1); SODIUM 140 MMOL/L (136-145)
[2018-08-16 08:00] VITALS: BP 109/59
[2018-08-16] MEDS: Sertraline 50mg tab ORAL SCH (08:21)
[2018-08-16] MEDS: Lacosamide 50mg tablet ORAL SCH ×2 (08:21→20:22)
[2018-08-16] MEDS: levETIRAcetam 1,000mg/NS100ml 100 ML IVPB SCH (08:22)
[2018-08-16] MEDS: Valproate Sodium INJ 1,000 MG in D5W 55 ML IV SCH (08:57)
--- NOTE | 2018-08-16 10:29 | Nephrology Progress Note ---
Assessment/Plan Problem List: (1) Seizure (2) Acute encephalopathy (3) Obese (4) Hypotension Assessment Sz long history , non compliant Obese ? DM Plan change anti Sz to PO monitor depakote levels to med surg discussed with RN check labs , mag .... bolus albumin as needed Subjective ROS Limited/Unobtainable: No Constitutional: Reports: other - no further Sz Objective Objective Last 24 Hour Vital Signs Date Time Temp Pulse Resp B/P (MAP) Pulse Ox O2 Delivery O2 Flow Rate FiO2 08/16/18 09:00 Room Air 08/16/18 08:00 97.6 70 18 109/59 (76) 97 08/16/18 07:57 78 08/16/18 04:00 97.6 59 18 113/58 (76) 97 08/16/18 03:54 57 08/16/18 00:00 98.9 79 18 113/61 (78) 97 08/15/18 23:57 68 08/15/18 21:00 Room Air 08/15/18 20:00 98.1 83 18 118/77 (91) 97 08/15/18 19:22 81 08/15/18 15:54 98.4 66 18 108/65 (79) 96 08/15/18 15:33 68 08/15/18 11:56 98.3 74 19 115/64 (81) 96 08/15/18 11:29 75 Intake and Output 08/15/18 08/16/18 18:59 06:59 Intake Total 1495.0 ml 165 ml Output Total 1250 ml 650 ml Balance 245.0 ml -485 ml Intake Oral 840 ml IV Total 655.0 ml 165 ml Output Urine Total 1250 ml 650 ml Laboratory Tests 08/16/18 06:06: Sodium Level 140, Potassium Level 5.2H, Chloride Level 103, Carbon Dioxide Level 29, Anion Gap 8, Blood Urea Nitrogen 6L, Creatinine 1.1, Estimat Glomerular Filtration Rate > 60, Glucose Level 73L, Calcium Level 9.2, Phosphorus Level 4.0, Magnesium Level 2.3, Total Bilirubin 0.4, Aspartate Amino Transf (AST/SGOT) 27, Alanine Aminotransferase (ALT/SGPT) 30, Alkaline Phosphatase 57, Total Protein 7.6, Albumin 3.9, Globulin 3.7, Albumin/Globulin Ratio 1.1, Valproic Acid (Depakene) Level 126*H Height (Feet): 5 Height (Inches): 10.00 Weight (Pounds): 229 General Appearance: no apparent distress Objective no change Paul Malik MD Aug 16, 2018 10:29
[2018-08-16 12:00] VITALS: BP 111/54
[2018-08-16] MEDS ORDERED: D5NS 1000ml IV ONE (15:13)
[2018-08-16] MEDS ORDERED: NS 275ml ONE (15:13)
[2018-08-16 16:00] VITALS: BP 110/71
[2018-08-16 20:00] VITALS: BP 106/61
[2018-08-16] MEDS: clonazePAM 0.5mg tab ORAL SCH (20:22)
--- NOTE | 2018-08-16 21:26 | Psych Consult Progress Note ---
Psychiatry Progress Note Psychiatry Progress Note Medications Current Medications Medications (Trade) Dose Ordered Sig/Janet Route PRN Reason Start Time Stop Time Status Last Admin Dose Admin Acetaminophen (Tylenol) 500 mg Q4H PRN ORAL Mild Pain/Temp > 100.5 08/11/18 21:15 09/10/18 21:14 Clonazepam (KlonoPIN) 0.5 mg BEDTIME ORAL 08/12/18 21:00 08/19/18 20:59 08/16/18 20:22 Divalproex Sodium (Depakote) 500 mg EVERY 12 HOURS ORAL 08/17/18 09:00 09/16/18 08:59 Gabapentin (Neurontin) 300 mg BEDTIME ORAL 08/12/18 21:00 09/11/18 20:59 08/16/18 20:22 Lacosamide (Vimpat) 25 mg Q12HR ORAL 08/14/18 11:15 09/13/18 11:14 08/16/18 20:22 Levetiracetam (Keppra) 1,000 mg Q12HR ORAL 08/16/18 21:00 09/15/18 20:59 08/16/18 20:22 Lorazepam (Ativan 2mg/ml 1ml) 1 mg Q2H PRN IV For Seizures 08/11/18 21:15 08/18/18 21:14 08/16/18 01:06 Sertraline HCl (Zoloft) 50 mg DAILY ORAL 08/13/18 09:00 09/12/18 08:59 08/16/18 08:21 Problems: (1) Seizure disorder Status: Acute (2) Depression Neurological/Psychiatric: Reports: anxiety, depressed, emotional problems Allergies: Coded Allergies: SULFA (SULFONAMIDE ANTIBIOTICS) (Verified Allergy, Unknown, 03/02/12) Uncoded Allergies: SULFA (Allergy, Mild, 03/02/14) Objective Data Height (Feet): 5 Height (Inches): 10.00 Weight (Pounds): 229 General Appearance: WD/WN, no apparent distress, alert, agitated, obese Appearance: disheveled Behavior Mannerisms: good eye contact Mental Status Exam - Affect: blunted Mental Status Exam - Mood: depressed, anxious, agitated Mental Status Exam - Suicidal: not present Assessment/Plan Problem List: (1) Seizure disorder ICD Codes: G40.909 - Epilepsy, unspecified, not intractable, without status epilepticus SNOMED: 251229137 (2) Depression ICD Codes: F32.9 - Major depressive disorder, single episode, unspecified SNOMED: 04636889 Status: doing well, stable Courtney Ashraf MD Aug 16, 2018 21:26
[2018-08-16] MEDS ORDERED: LORazepam Inj 2mg/ml 1ml IV PRN (22:00)
[2018-08-17] VITALS: BP 103/58
[2018-08-17 04:00] VITALS: BP 102/61
[2018-08-17 08:00] VITALS: BP 146/68
[2018-08-17] MEDS ORDERED: Depakote 500mg tab ORAL SCH ×2 (09:00)
[2018-08-17] MEDS ORDERED: Lacosamide 50mg tablet ORAL SCH (09:00)
[2018-08-17] MEDS ORDERED: Sertraline 50mg tab ORAL SCH (09:00)
[2018-08-17] MEDS ORDERED: DEPAKOTE250 MG PO (10:40)
[2018-08-17] MEDS ORDERED: VIMPAT50 MG PO (10:41)
[2018-08-17] MEDS ORDERED: SERTRALINE HCL25 MG ORAL (10:42)
[2018-08-17] MEDS ORDERED: LEVETIRACETAM250 MG PO (10:42)
[2018-08-17] MEDS ORDERED: KLONOPIN0.5 MG ORAL (10:43)
[2018-08-17] MEDS ORDERED: GABAPENTIN300 MG ORAL (10:43)
[2018-08-17] MEDS ORDERED: TYLENOL EXTRA500 MG ORAL (10:45)
[2018-08-17] MEDS ORDERED: KEPPRA500 M3 ORAL (10:46)
[2018-08-17 12:00] VITALS: BP 119/64
--- NOTE | 2018-08-17 12:57 | Nephrology Progress Note ---
Assessment/Plan Problem List: (1) Seizure (2) Acute encephalopathy (3) Obese (4) Hypotension Assessment Sz long history , non compliant Obese ? DM Plan change anti Sz to PO monitor depakote levels, today back in range to med surg discussed with RN Dc planning Subjective ROS Limited/Unobtainable: No Objective Objective Last 24 Hour Vital Signs Date Time Temp Pulse Resp B/P (MAP) Pulse Ox O2 Delivery O2 Flow Rate FiO2 08/17/18 12:00 97.5 78 23 119/64 (82) 99 08/17/18 09:00 Room Air 08/17/18 08:00 96.8 74 23 146/68 (94) 97 08/17/18 04:00 97.8 67 18 102/61 (75) 99 08/17/18 00:00 98.1 65 18 103/58 (73) 98 08/16/18 21:00 Room Air 08/16/18 20:00 98.0 75 16 106/61 (76) 98 08/16/18 16:00 97.6 80 18 110/71 (84) 97 Intake and Output 08/16/18 08/17/18 18:59 06:59 Intake Total 800 ml Output Total 700 ml 200 ml Balance 100 ml -200 ml Intake Oral 800 ml Output Urine Total 700 ml 200 ml Laboratory Tests 08/17/18 06:30: Valproic Acid (Depakene) Level 72 Height (Feet): 5 Height (Inches): 10.00 Weight (Pounds): 229 General Appearance: no apparent distress Objective no change Paul Malik MD Aug 17, 2018 12:57
--- NOTE | 2018-08-17 13:30 | Psych Consult Progress Note ---
Psychiatry Progress Note Psychiatry Progress Note Medications Current Medications Medications (Trade) Dose Ordered Sig/Janet Route PRN Reason Start Time Stop Time Status Last Admin Dose Admin Acetaminophen (Tylenol) 500 mg Q4H PRN ORAL Mild Pain/Temp > 100.5 08/17/18 21:00 09/10/18 20:59 Clonazepam (KlonoPIN) 0.5 mg BEDTIME ORAL 08/17/18 21:00 08/19/18 20:59 Divalproex Sodium (Depakote) 750 mg EVERY 12 HOURS ORAL 08/17/18 21:00 09/16/18 08:59 Gabapentin (Neurontin) 300 mg BEDTIME ORAL 08/17/18 21:00 09/11/18 20:59 Lacosamide (Vimpat) 25 mg Q12HR ORAL 08/17/18 09:00 09/13/18 11:14 08/17/18 09:06 Levetiracetam (Keppra) 1,000 mg Q12HR ORAL 08/17/18 09:00 09/15/18 20:59 08/17/18 09:06 Lorazepam (Ativan 2mg/ml 1ml) 1 mg Q2H PRN IV For Seizures 08/16/18 22:00 08/18/18 21:59 Sertraline HCl (Zoloft) 50 mg DAILY ORAL 08/17/18 09:00 09/12/18 08:59 08/17/18 09:06 Problems: (1) Seizure disorder Status: Acute (2) Depression Neurological/Psychiatric: Reports: anxiety, depressed Allergies: Coded Allergies: SULFA (SULFONAMIDE ANTIBIOTICS) (Verified Allergy, Unknown, 03/02/12) Uncoded Allergies: SULFA (Allergy, Mild, 03/02/14) Objective Data Height (Feet): 5 Height (Inches): 10.00 Weight (Pounds): 229 General Appearance: WD/WN, no apparent distress, alert Appearance: well groomed Behavior Mannerisms: good eye contact Mental Status Exam - Mood: depressed, anxious Mental Status Exam - Thought P: logical Mental Status Exam - Suicidal: not present Assessment/Plan Problem List: (1) Seizure disorder ICD Codes: G40.909 - Epilepsy, unspecified, not intractable, without status epilepticus SNOMED: 075309838 (2) Depression ICD Codes: F32.9 - Major depressive disorder, single episode, unspecified SNOMED: 88231418 Status: stable Plan: depakote zoloft provided ro/Courtney Kilpatrick MD Aug 17, 2018 13:30
[2018-08-17 16:00] VITALS: BP 125/72
[2018-08-17] MEDS ORDERED: Acetaminophen 500mg (ES) tab ORAL PRN (21:00)
[2018-08-17] MEDS ORDERED: clonazePAM 0.5mg tab ORAL SCH (21:00)
--- NOTE | 2018-08-18 07:54 | Discharge Summary ---
Discharge Summary Discharge Summary _ DATE OF ADMISSION: 08/11/2018 DATE OF DISCHARGE: 08/17/2018 DISCHARGED BY: Dr Alva REASON FOR ADMISSION: 38 years old male with past medical history of seizure disorder, diabetes mellitus, bipolar disorder, depression, presented to emergency department with reporting seizure activity. Apparently patient was noncompliant with the seizures anti-convulsant regimen at home. Patient did not fill his prescription for Depakote and Keppra. Patient denies chest pain or shortness of breath. Patient denied vomiting or diarrhea. Patient had previous trauma to his forehead and scalp area he denies any focal weakness. Upon evaluation vital signs are stable laboratory workup revealed no leukocytosis hemoglobin 13.2 hematocrit 40 platelet count 212. Sodium 139 potassium 3.5 BUN 16 creatinine 1.2 glucose 87 magnesium 2.[address] of the head revealed no acute intracranial pathology patient admitted for further management CONSULTANTS: neurologist Dr. Del Castillo GI specialist Dr. Malik psychiatrist HOSPITAL COURSE: Patient admitted. Seizure precaution maintained. Neurologist closely followed. Home doses of both Depakote and Keppra were increased. Levels were periodically checked. Prior to discharge Depakote level stable. Ativan was on board as needed for breakthrough seizure. Patient initially exhibited persistent unresponsiveness , likely secondary to toxic encephalopathy ,as per neurologist. While patient was unresponsive all anticonvulsant medication where via IV route. No evidence of seizure activity while in the hospital. Lamictal was added to existing regimen. Patient mental status slowly improved to baseline. All anticonvulsants changed to oral route. Patient was counseled on compliance with anticonvulsant regimen at home. Furnace Checker followed. Renal parameters and electrolytes were closely monitored. Electrolytes were corrected as needed. Hemoglobin A1c 6.0. Patient had prediabetes. Patient was counseled on no concentrated sweets, low-fat, low-cholesterol diet and need to increase activity to lose weight. Psychiatrist followed. Per psychiatrist patient had depression along with seizure disorder. Reality orientation and supportive therapy provided. Zoloft added for treatment of depression. Patient was closely monitored. No further seizure activity. Patient clinically stabilized and was ready for discharge home. Reinforced compliance with medication regimen at home. FINAL DIAGNOSES: Epileptic seizure , generalized Chronic seizure disorder, noncompliant Persistent unresponsiveness , secondary to toxic encephalopathy Noncompliance with medication Depression Acute encephalopathy Depression Obesity DISCHARGE MEDICATIONS: See Medication Reconciliation list. DISCHARGE INSTRUCTIONS: Patient was discharged home. Follow up with primary care provider in one week. I have been assigned to dictate discharge summary for this account. I was not involved in the patient's management. Tianna Garces NP Aug 18, 2018 07:54
== END 2018-08-17 16:36 | disposition home or self-care (01) | DRG 53 ==
LOC: EDBD 14:59 → EMR 15:18 → 2E 18:25 → EDBEDREQ 18:45 → 2E 08-14 19:59 → 4E 08-16 21:20
DX: G40.409 Other generalized epilepsy and epileptic syndromes, not intractable, without status epilepticus (principal); G92 Toxic encephalopathy; E72.20 Disorder of urea cycle metabolism, unspecified; E66.9 Obesity, unspecified; F32.9 Major depressive disorder, single episode, unspecified; Z68.32 Body mass index [BMI] 32.0-32.9, adult; Z91.14 Patient's other noncompliance with medication regimen; I95.9 Hypotension, unspecified; Z88.2 Allergy status to sulfonamides
CPT/HCPCS: 36415; 70450; 80048; 80053; 80061; 80164; 80299; 80307; 81001; 82533; 82962; 82977; 83036; 83735; 84100; 84550; 85025; 86140; 93005; 96361; 96374; 96375; 99285